=== PATIENT | male | born 1955 | race Caucasian/White ===

== ENCOUNTER → 2016-07-19 | Outpatient (CLI) | payer MEDICARE ==
[2016-07-19 12:13] VITALS: BP 153/89; PULSE 64; RESP 18
--- NOTE | 2016-07-19 12:46 | P.PN ---
Subjective This is follow-up visit for this patient with a history of severe and chronic low back pain secondary to lumbar degenerative disc disease lumbar facet arthropathy, we have done interventional pain management injection, radiofrequency ablation of the medial branch lumbar area, down the right side on February 2016 and then we did the left side on March 2016, and he is complaining of localized severe pain , continued in the low back area, and he started immediately after he had the radiofrequency ablation on the left side, and radiated to the left buttock, he denies any motor or sensory deficit he denies any fever or night sweats he denies any change in the bowel movement or urination, and is currently on pain medications 1- oxycodone 20 mg every 6 hours when necessary for pain 2-Motrin 800 mg 3 times a day Patient denies any side effects of the medication, denies excessive drowsiness or sleepiness, denies suicidal ideation, and reports that the current pain medication is NOT helping To control the pain and improve activity of daily living Physical Examinations : 1-Constitutiona : Cooperative , not in acute distress . 2-HEENT : nech ; supple , no Lymphadenopathy , no Thyromegaly , normal thyroid size . eyes : no ptosis , no icterus, no photophobia . ENT : normal of hearing , normal oropharynx , no Thrush . 3- Respiratory : Chest clear to auscultations Bilaterally , no wheezing , no Rhonchi . 4- Cardiovascular : regular rate and rhythem , S1 , S2 , no S3 , no S4. 5- Gastrointestinal : abdomen soft no tenderness , bowel sounds positive all four quadrents , no organomegally . 6- Genitourinary : Defferred . 7- neurologic : Cranial nerve II to XII intact , no focal neurological deffecit . 8-psychatric : alert , oriented X 3 , appropriate affect , intact judgment and insight . 9-Lymphatic : no Lymphadenopathy . 10- musculoskeltal : exams of the cervical spine = motor strength normal bilateral upper extremities facet loading test cervical area positive. exams of the Lumber spine = motor strength lower extremities ,thigh and legs .5/5 deep tendon reflexes : normal Knee Jerk , normal ankle Jerk . Severe tenderness over the left-sided iliolumbar ligament area Range of motion: Range of motion in flexion of the lumbar spine 60 degrees Range of motion range of motion of extension of the lumbar spine 30 Assessment and plan = - Chronic low back pain secondary to lumbar degenerative disc disease , lumbar spondylosis with facet arthropathy without myelopathy , Status post radiofrequency ablation of the medial branch lumbar area done more than 2 months ago, currently he has typical symptoms of Left iliolumbar ligament neuralgia, - chronic and current use of high-risk medication (Opioids). The patient was counseled about risk of opioid use, psychological risk associated with opioids and was orally counseled to not overuse , divert,or sell dictations to take medications as prescribed only , and to restore medication in safe location , and the patient counseled against driving while using narcotic medications, and also not to use alcohol or any illicit recreational drugs, the patient's verbalized understanding that the lack of compliance will result in failure to renew narcotic prescription and possible discharge from the clinic - diagnoses, prognosis, and treatment options including but not limited to physical therapy, surgical interventions, interventional therapies , and medication management including narcotics and adjuvant medication were discussed with the patient and all The questions answered -medication management =1-oxycodone 20 mg every 6 hours dispense 120 with one refill 2-Motrin 800 mg every 8 hours dispense 90 with 1 refill -procedure= urine drug screen today Scheduled patient to have left iliolumbar ligament steroid injection under fluoroscopy guidance Objective - Vital Signs Vital signs: Vital Signs Temp Pulse 64 07/19/16 12:09 Resp 18 07/19/16 12:09 BP 153/89 07/19/16 12:09 Pulse Ox 98 07/19/16 12:09 Intake & Output 07/18/16 07/19/16 07/19/16 18:59 06:59 18:59 Weight 106.594 kg
== END | disposition home or self-care (01) ==
LOC: PNWHC3 11:53
PROVIDERS: ATTEND Specialist
DX: M51.36 Other intervertebral disc degeneration, lumbar region (principal); M47.816 Spondylosis without myelopathy or radiculopathy, lumbar region; M46.96 Unspecified inflammatory spondylopathy, lumbar region; G58.8 Other specified mononeuropathies; Z79.891 Long term (current) use of opiate analgesic
CPT/HCPCS: 80307 ×2; G0480; G0463; 80364; 99211

== ENCOUNTER 2016-08-20 07:32 | Day surgery (SDC) | payer MEDICARE ==
[2016-08-20 07:58] VITALS: TEMP 97.7
[2016-08-20] MEDS ORDERED: LACTATED RINGERS 1,000 ML IV ONE (08:15)
[2016-08-20] MEDS ORDERED: TRIAMCINOLONE ACETONIDE 40 MG/ML 1 ML VIAL ONE (09:20)
[2016-08-20] MEDS ORDERED: BUPIVACAINE (PF) 0.75% 30 ML VIAL ONE (09:20)
[2016-08-20 10:01] VITALS: BP 126/80; PULSE 57; RESP 18
--- NOTE | 2016-08-20 10:06 | FL ---
Fluoroscopy HISTORY: Pain 5 seconds fluoroscopy time supplied to the referring clinician. 2 intraoperative C-arm images docume nt the procedure. See dictated report from anesthesia.
--- NOTE | 2016-08-20 12:03 | P.PCN ---
Date of Procedure: 08/20/16 Procedure(s) Performed: Preoperative diagnoses= 1-left iliolumbar ligament and neuralgia 2-lumbar spondylosis with lumbar facet arthropathy without myelopathy Postoperative diagnoses= same as preoperative diagnosis. Procedure= left iliolumbar ligament steroid injection under fluoroscopic guidance. Anesthesia= local infiltration with lidocaine 1% 2 ml Estimated blood loss=minimal. Procedure indication= the patient had a history of severe chronic low back pain , diagnosed with left iliolumbar ligament and neuralgia and lumbar sacral facet arthropathy unresponsive to conservative treatment. Patient had radiofrequency ablation of the medial branch lumbar area and he continued to have severe low back pain at the location of the left iliolumbar ligament for this reason he is a good candidate to have left iliolumbar ligament steroid injection Procedure description= the patient was seen and identified in the preoperative holding area, risks and benefits and alternative of the procedure and possible complications discussed with the patient, and he agreed with the preceding, patient signed the consent, an IV was started, and vital signs were monitored and were stable throughout the procedure, patient was placed in the prone position or table and the lumbosacral area was prepped and draped with a sterile fashion, vital signs were closely monitored during the procedure, the fluoroscopy camera was placed in the AP view then 25-gauge Quincke Needle advanced slowly and placed in the middle of the distance between the transverse process of L5 and the sacral ala on the left side, needle placement confirmed with AP and lateral view and after appropriate needle placement confirmed and after negative aspiration for heme and CSF and there was no paresthesia during the injection, 5 ml of Marcaine 0.75% and 40 mg of Kenalog injected after negative aspiration, the needle removed, Patient tolerated the procedure well without any complication, The patient returned to supine position after the back was cleaned and a Band- Aid applied, the patient transported to recovery room in stable condition and he was monitored for 30 minutes before he was discharged home and then patient was reexamined before going home and patient was discharged in stable condition and patient will follow up with the pain clinic in a few weeks
== END 2016-08-20 10:08 | disposition home or self-care (01) ==
LOC: ORPAIN 07:32
PROVIDERS: ATTEND Specialist
DX: M46.96 Unspecified inflammatory spondylopathy, lumbar region (principal)
CPT/HCPCS: 20550; J3301

== ENCOUNTER → 2016-09-17 | Outpatient (CLI) | payer MEDICARE ==
[2016-09-17 13:04] VITALS: BP 158/81; PULSE 67; RESP 16; TEMP 97.8
--- NOTE | 2016-09-17 13:28 | P.PN ---
Subjective This is follow-up visit for this patient with a history of severe and chronic low back pain secondary to lumbar degenerative disc disease lumbar facet arthropathy, we have done interventional pain management injection, radiofrequency ablation of the medial branch lumbar area He continued to have severe low back pain mainly on the left side low back area after the radiofrequency, he denies any motor or sensory deficit We did a lumbar ligament stability injection, he reported that he had minimal benefit from it, and he continued to have severe low back pain and Occasional numbness and tingling sensation . He is currently using, oxycodone 20 mg every 6 hours Patient denies any side effects of the medication, denies excessive drowsiness or sleepiness, denies suicidal ideation, and reports that the current pain medication is NOT helping To control the pain and improve activity of daily living Physical Examinations : 1-Constitutiona : Cooperative , not in acute distress . 2-HEENT : nech ; supple , no Lymphadenopathy , no Thyromegaly , normal thyroid size . eyes : no ptosis , no icterus, no photophobia . ENT : normal of hearing , normal oropharynx , no Thrush . 3- Respiratory : Chest clear to auscultations Bilaterally , no wheezing , no Rhonchi . 4- Cardiovascular : regular rate and rhythem , S1 , S2 , no S3 , no S4. 5- Gastrointestinal : abdomen soft no tenderness , bowel sounds positive all four quadrents , no organomegally . 6- Genitourinary : Defferred . 7- neurologic : Cranial nerve II to XII intact , no focal neurological deffecit . 8-psychatric : alert , oriented X 3 , appropriate affect , intact judgment and insight . 9-Lymphatic : no Lymphadenopathy . 10- musculoskeltal : exams of the cervical spine = motor strength normal bilateral upper extremities exams of the Lumber spine = motor strength lower extremities ,thigh and legs .5/5 deep tendon reflexes : normal Knee Jerk , normal ankle Jerk . lumber facet Loading Test positive strait leg raising test positive at 30 degree , RT ,LT , Fabere test positive RT and positive LT . Range of motion: Range of motion in flexion of the lumbar spine 30 degrees Range of motion range of motion of extension of the lumbar spine 10 Sever tenderness over the Sacroiliac joint on the Left side , severe tenderness on the iliolumbar ligament on the left Assessment and plan = - Chronic low back pain secondary to lumbar degenerative disc disease , lumbar spondylosis with facet arthropathy without myelopathy , Iliolumbar ligament neuralgia Patient had no benefit after the iliolumbar ligament steroid injection, and he continued to have pain on the left side after the radiofrequency Ablation of the medial branch on the left side - chronic and current use of high-risk medication (Opioids). The patient was counseled about risk of opioid use, psychological risk associated with opioids and was orally counseled to not overuse , divert,or sell dictations to take medications as prescribed only , and to restore medication in safe location , and the patient counseled against driving while using narcotic medications, and also not to use alcohol or any illicit recreational drugs, the patient's verbalized understanding that the lack of compliance will result in failure to renew narcotic prescription and possible discharge from the clinic - diagnoses, prognosis, and treatment options including but not limited to physical therapy, surgical interventions, interventional therapies , and medication management including narcotics and adjuvant medication were discussed with the patient and all The questions answered -medication management = refill oxycodone 20 mg every 6 hours dispensed 120 -I will order MRI of the lumbar spine without contrast to evaluate the progression of lumbar spine pathology, and he will follow up in 1 month Objective - Vital Signs Vital signs: Vital Signs Temp 97.8 F 09/17/16 12:55 Pulse 67 09/17/16 12:55 Resp 16 09/17/16 12:55 BP 158/81 09/17/16 12:55 Pulse Ox Intake & Output 09/16/16 09/17/16 09/17/16 18:59 06:59 18:59 Weight 104.326 kg
== END | disposition home or self-care (01) ==
LOC: PNWHC3 12:38
PROVIDERS: ATTEND Specialist
DX: M51.36 Other intervertebral disc degeneration, lumbar region (principal); M47.816 Spondylosis without myelopathy or radiculopathy, lumbar region; M46.86 Other specified inflammatory spondylopathies, lumbar region; M79.2 Neuralgia and neuritis, unspecified
CPT/HCPCS: 99211

== ENCOUNTER → 2016-10-15 | Outpatient (CLI) | payer MEDICARE ==
[2016-10-15 12:01] VITALS: BP 151/89; PULSE 66; RESP 16; TEMP 97.3
--- NOTE | 2016-10-15 13:25 | P.CONS ---
History of Present Illness - Reason for Consult Consult date: 10/15/16 - History of Present Illness This is from prior visit for this 60 years old male with a chronic history of severe low back pain secondary to lumbar degenerative disc disease and lumbar spondylosis with facet arthropathy, done interventional pain management procedure, status post radiofrequency ablation of the medial branch lumbar area , he continued to have localized pain at the area of the iliolumbar ligament,( left ) , we did the left side iliolumbar ligament steroid injection and had no benefit from it, he denies any motor or sensory deficit, and he had new MRI of the lumbar spine done recently and is here to discuss the results of the MRI, Past Medical History Past Medical History: GERD/Reflux, Hearing Disorder / Deafness, Myocardial Infarction ([place]), Musculoskeletal Disorder Additional Past Medical History / Comment(s): BACK PAIN THAT RADIATES TO BOTH LEGS. CHIGNIK LAGOON RT EAR. Last Myocardial Infarction Date:: 1998 History of Any Multi-Drug Resistant Organisms: None Reported Past Surgical History: Coronary Bypass/CABG, Heart Catheterization With Stent, Orthopedic Surgery Additional Past Surgical History / Comment(s): COLONOSCOPY. RT KNEE SURG. LT ROTATOR CUFF SURG. Pain Procedures Past Anesthesia/Blood Transfusion Reactions: No Reported Reaction Date of Last Stent Placement:: 1998 Past Psychological History: No Psychological Hx Reported Smoking Status: Current every day smoker Past Alcohol Use History: None Reported Additional Past Alcohol Use History / Comment(s): CURRENTLY SMOKES 1/2 PPD. SMOKING SINCE 20 YEARS OLD. USED TO SMOKE 1- 1 1/2 PPD. Past Drug Use History: None Reported - Past Family History Mother Family Medical History: No Reported History Medications and Allergies Home Medications Medication Instructions Recorded Confirmed Type Omeprazole [PriLOSEC] 20 mg PO DAILY PRN 12/19/15 10/15/16 History Multivitamin [Men's Multi-Vitamin] 1 tab PO DAILY 07/19/16 10/15/16 History Allergies Allergy/AdvReac Type Severity Reaction Status Date / Time No Known Allergies Allergy Verified 10/15/16 11:53 Physical Exam Vitals: Vital Signs Temp Pulse Resp BP Pulse Ox 10/15/16 11:56 97.3 F L 66 16 151/89 97 Intake and Output 10/14/16 10/15/16 10/15/16 22:59 06:59 14:59 Other: Weight 108.862 kg Patient Weight 10/16/16 06:59 Weight 108.862 kg Physical Examinations : 1-Constitutiona : Cooperative , not in acute distress . 2-HEENT : nech ; supple , no Lymphadenopathy , no Thyromegaly , normal thyroid size . eyes : no ptosis , no icterus, no photophobia . ENT : normal of hearing , normal oropharynx , no Thrush . 3- Respiratory : Chest clear to auscultations Bilaterally , no wheezing , no Rhonchi . 4- Cardiovascular : regular rate and rhythem , S1 , S2 , no S3 , no S4. 5- Gastrointestinal : abdomen soft no tenderness , bowel sounds positive all four quadrents , no organomegally . 6- Genitourinary : Defferred . 7- neurologic : Cranial nerve II to XII intact , no focal neurological deffecit . 8-psychatric : alert , oriented X 3 , appropriate affect , intact judgment and insight . 9-Lymphatic : no Lymphadenopathy . 10- musculoskeltal : exams of the Lumber spine = normal moter stegnth lower extremities ,thigh and legs .5/5 deep tendon reflexes : normal Knee Jerk , normal ankle Jerk . positive lumber facet Loading Test strait leg raising test positive at 30 degree , RT ,LT , Fabere test positive RT and positive LT . Sever tenderness over the Sacroiliac joint on the Left side , severe tenderness over the left iliolumbar ligament and the left side Results Comments: MRI of the lumbar spine done at [facility]= lumbar DDD and lumbar spondylosis Assessment and Plan Plan: Assessment and plan = - Chronic low back pain secondary to lumbar degenerative disc disease , lumbar spondylosis with facet arthropathy without myelopathy , The patient was counseled about risk of opioid use, psychological risk associated with opioids discussed with the patient, body mass index and exercise. Patient signed the narcotic agreement , and was orally counseled not to overuse , abuse , divert, or sell medications ,and take them as prescribed only , and the patient was counseled against driving and while you are using the narcotic medication also not to use alcohol or any illicit drugs and the patient verbalized understanding that lack of compliance and could result in failure to renew narcotics prescriptions and possible discharge from the clinic - diagnoses, prognosis, and treatment options including but not limited to physical therapy, surgical interventions, interventional therapies and medication management including narcotics and adjuvant medication were discussed with the patient and all questions answered to the patient's satisfaction. -medication refile = oxycodone 20 mg every 6 hours dispensed 120 with one refill , Motrin 800 mg 3 times a day when necessary He will follow up in 2 months for medication refill -procedure= none at this point Time with Patient: Less than 30
== END | disposition home or self-care (01) ==
LOC: PNWHC3 11:33
PROVIDERS: ATTEND Specialist
DX: M51.36 Other intervertebral disc degeneration, lumbar region (principal); M47.816 Spondylosis without myelopathy or radiculopathy, lumbar region; M46.86 Other specified inflammatory spondylopathies, lumbar region; K21.9 Gastro-esophageal reflux disease without esophagitis; F17.200 Nicotine dependence, unspecified, uncomplicated; I25.2 Old myocardial infarction
CPT/HCPCS: 99211

== ENCOUNTER → 2016-12-05 | Outpatient (CLI) | payer MEDICARE ==
[2016-12-05 12:55] VITALS: BP 132/81; PULSE 65; RESP 18; TEMP 97.3
--- NOTE | 2016-12-05 13:32 | P.PN ---
Progress Note - Text Patient returns for followup for chronic back pain with radiation to bilateral lower extremities, occasionally below knee. Patient underwent bilateral RFA in which helped him for about one month. Patient continues on oxycodone, ibuprofen medications for pain with good relief. Patient denies adverse drug effects from medications. Today, pt denies new-onset weakness, bowel/bladder incontinence, or any other signs or symptoms of cauda equina syndrome. There are no signs of acute intoxication, and no indications of medication diversion or overuse. In addition to above, 13-point review of systems is also negative for chest pain , shortness of breath, changes in vision, changes in hearing, new onset weakness , abdominal pain, diarrhea, extreme fatigue, malaise, fever, skin changes, homicidal or suicidal ideation, or bowel or bladder incontinence. Vital Signs: Reviewed in EMR Gen: WDWN, AAOx3, NAD HEENT: NCAT, EOMI, hearing grossly normal Pulm: resp unlabored Abd: soft, NT, ND Neck: supple, trachea midline ROM in flexion lumbar spine: reduced ROM in extension lumbar spine: reduced Lumbar paravertebral tenderness: + bilateral Facet loading: ++ bilateral, L > R SI joint tenderness: negative Mars's test: + bilateral Straight leg raise: + L side > R side Neuro: CN II-XII grossly intact, muscle strength lower extremities PRESERVED Imaging: Reviewed in EMR Assessment: 1. lumbar spinal stenosis 2. lumbar spondylosis without myelopathy 3. chronic pain syndrome Plan: 1. Explanation: Opioid and psychological risk scores were reviewed. Diagnoses , prognoses, and multiple treatment options including but not limited to physical therapy, interventional therapies, adjuvant medical therapies, narcotic medication therapies, and surgery were discussed with the patient and all questions were answered to the patient's satisfaction. 2. Opioid agreement: Patient has previously signed narcotic agreement, and was orally counseled to not overuse, abuse, divert, or cell medications, and to take them as prescribed by only 1 healthcare provider. The patient was also counseled to take medications as prescribed by only 1 healthcare provider and to store opioid medications in the safe and preferably locked location. Patient was also counseled not to drive while using narcotic medications and also to not use alcohol or any illicit or recreational drugs. The patient verbalized understanding that lack of compliance with any of the above and likely result in failure to renew narcotic prescriptions, possible discharge from the clinic, and possible legal ramifications thereafter if indicated. 3. Counseling: The patient was counseled extensively on SMOKING CESSATION, BODY MASS INDEX, EXERCISE. Specifically, the patient was instructed regarding the importance of smoking cessation, obesity, and exercise in the context of both chronic pain and overall health. 4. Procedures: bilateral SIJ injection 5. Consultations: None 6. Investigations: UDS OK 7. Medications: oxycodone 20 mg #105 for next month, then will likely maintain patient at oxycodone 20 mg #90 after that; refilled Motrin. Consider adding topamax or other adjuvants in the future. 8. Dispo: f/u for procedure as scheduled PQRS measures: 1-Patient's medications are documented in the chart. 2-Tobacco use is positive, counseling given 3-Patient has not had a pneumococcal vaccine. 4-Advanced care planning discussed, patient not eligible. 5-Opioid contract signed with the patient. 6-Pain positive, follow-up visit or procedure scheduled 7-Patient's blood pressure measured and documented, within normal limits. 8-Patient's weight was measured, and body mass index ABOVE the normal limits, and counseling was done. Patient instructed to follow up with PCP. 9-Patient WAS NOT identified as an unhealthy alcohol user.
== END ==
LOC: PNWHC3 12:32
PROVIDERS: ATTEND Anesthesiology
DX: M48.06 Spinal stenosis, lumbar region (principal); M47.816 Spondylosis without myelopathy or radiculopathy, lumbar region; G89.4 Chronic pain syndrome; Z79.891 Long term (current) use of opiate analgesic
CPT/HCPCS: 99211

== ENCOUNTER 2017-01-17 09:54 | Day surgery (SDC) | payer MEDICARE ==
[2017-01-14 09:11] VITALS: BMI 30.3
[2017-01-17] MEDS ORDERED: LACTATED RINGERS 1,000 ML IV SCH (10:15)
[2017-01-17] MEDS ORDERED: LIDOCAINE 1% 20 ML VIAL (10MG/ML) FOR IV START INTRADERMA ONE (10:19)
[2017-01-17 10:27] VITALS: RESP 16; TEMP 97.7
--- NOTE | 2017-01-17 11:34 | FL ---
Fluoroscopy HISTORY: Pain 6 seconds fluoroscopy time supplied to the referring clinician. 4 intraoperative C-arm images docume nt the procedure. See dictated report from anesthesia.
[2017-01-17 11:47] VITALS: BP 138/83; PULSE 57
--- NOTE | 2017-01-17 12:22 | P.PCN ---
Date of Procedure: 01/17/17 Preoperative Diagnosis: Postoperative Diagnosis: Procedure(s) Performed: Implants: Surgeon: Boo Hooker Pathology: none sent Condition: stable Disposition: PACU Indications for Procedure: Operative Findings: Description of Procedure: PREOPERATIVE DIAGNOSIS: 1-Bilateral sacroiliitis. POSTOPERATIVE DIAGNOSIS:. 1-Bilateral sacroiliitis. PROCEDURES: Bilateral Sacroiliac joint steroid injection with fluoroscopic guidance ANESTHESIA: Local with 1% lidocaine EBL: Minimal. PROCEDURE INDICATIONS: This patient with a history of low back pain secondary to sacroiliitis and lumbar DDD unresponsive to conservative management. No use of blood thinners. PROCEDURE DESCRIPTION: The patient was seen and identified in the preoperative area. Risks, benefits, complications, and alternatives were discussed with the patient (including but not limited to incomplete pain relief, bleeding, infection, nerve damage, and allergies to medications), the patient agreed to proceed with the procedure and signed the consent after all questions were answered. Patient was taken to the OR and time out was completed to verify proper patient , position, laterality of pain, and allergies. Pt was placed in the prone position and a pillow was placed under the abdomen to reduce lumbar lordosis. The lumbosacral area was prepped and draped in the usual sterile fashion. Critical pause was taken. Vital signs were closely monitored during the procedure. The fluoroscopic camera was placed in contralateral oblique view and right sacroiliiac joint lower pole was identified. After local infiltration with 1% lidocaine 2 ml, Subsequently, a 22-gauge 3.5 inch spinal needle was introduced into the posteroinferior aspect of the right sacroiliac joint under direct fluoroscopic visualization. Subsequently, 3 ml of a solution of a total of 6 ml solution containing total 5 mL of 0.5% preservative-free bupivacaine mixed with 40 mg of Kenalog was injected after negative aspiration for CSF, blood, and air and negative for paresthesia. The entire procedure was repeated on the left side as above. Needle was withdrawn intact. Skin was cleansed, and bandages were applied. COMPLICATIONS: None. COMMENTS: DISPOSITION / PLANS: The patient was placed in a supine position and transferred to the recovery area in a stable condition for observation and was discharged from the recovery room after meeting discharge criteria. Home discharge instructions given to the patient by the staff. The patient was reexamined prior to discharge. The patient will schedule a follow-up in clinic in February.
== END 2017-01-17 11:52 | disposition home or self-care (01) ==
LOC: ORPAIN 09:54
PROVIDERS: ATTEND Anesthesiology
DX: M46.1 Sacroiliitis, not elsewhere classified (principal); G89.29 Other chronic pain; M51.36 Other intervertebral disc degeneration, lumbar region; K21.9 Gastro-esophageal reflux disease without esophagitis; Z95.5 Presence of coronary angioplasty implant and graft; Z95.1 Presence of aortocoronary bypass graft
CPT/HCPCS: 99152

== ENCOUNTER → 2017-02-27 | Outpatient (CLI) | payer MEDICARE ==
[2017-02-27 14:14] VITALS: BP 155/90; PULSE 67; RESP 20
--- NOTE | 2017-02-27 14:23 | P.PN ---
Progress Note - Text Patient returns for followup for chronic back pain with radiation to bilateral lower extremities, occasionally below knee. Patient underwent bilateral RFA in July/August which helped him for about one month and bilateral SIJ injection which helped for 1-2 days. Patient continues on oxycodone, ibuprofen medications for pain with some relief, although this was decreased from QID to TID at last visit. Patient denies adverse drug effects from medications. Today , pt denies new-onset weakness, bowel/bladder incontinence, or any other signs or symptoms of cauda equina syndrome. There are no signs of acute intoxication, and no indications of medication diversion or overuse. In addition to above, 13-point review of systems is also negative for chest pain , shortness of breath, changes in vision, changes in hearing, new onset weakness , abdominal pain, diarrhea, extreme fatigue, malaise, fever, skin changes, homicidal or suicidal ideation, or bowel or bladder incontinence. Vital Signs: Reviewed in EMR Gen: WDWN, AAOx3, NAD HEENT: NCAT, EOMI, hearing grossly normal Pulm: resp unlabored Abd: soft, NT, ND Neck: supple, trachea midline ROM in flexion lumbar spine: reduced ROM in extension lumbar spine: reduced Lumbar paravertebral tenderness: + bilateral Facet loading: ++ bilateral, L > R SI joint tenderness: negative Mars's test: + bilateral Straight leg raise: + L side > R side Neuro: CN II-XII grossly intact, muscle strength lower extremities PRESERVED Imaging: Reviewed in EMR Assessment: 1. lumbar spinal stenosis 2. lumbar spondylosis without myelopathy 3. chronic pain syndrome Plan: 1. Explanation: Opioid and psychological risk scores were reviewed. Diagnoses , prognoses, and multiple treatment options including but not limited to physical therapy, interventional therapies, adjuvant medical therapies, narcotic medication therapies, and surgery were discussed with the patient and all questions were answered to the patient's satisfaction. 2. Opioid agreement: Patient has previously signed narcotic agreement, and was orally counseled to not overuse, abuse, divert, or cell medications, and to take them as prescribed by only 1 healthcare provider. The patient was also counseled to take medications as prescribed by only 1 healthcare provider and to store opioid medications in the safe and preferably locked location. Patient was also counseled not to drive while using narcotic medications and also to not use alcohol or any illicit or recreational drugs. The patient verbalized understanding that lack of compliance with any of the above and likely result in failure to renew narcotic prescriptions, possible discharge from the clinic, and possible legal ramifications thereafter if indicated. 3. Counseling: The patient was counseled extensively on SMOKING CESSATION, BODY MASS INDEX, EXERCISE. Specifically, the patient was instructed regarding the importance of smoking cessation, obesity, and exercise in the context of both chronic pain and overall health. 4. Procedures: bilateral SIJ injection #2 5. Consultations: None 6. Investigations: UDS OK 7. Medications: oxycodone 20 mg #90 with one refill; refilled Motrin 8. Dispo: f/u for procedure as scheduled. If patient gets limited relief from SIJ injection and is not a candidate for SI RFA, consider repeating lumbar RFA. Patient states that he is slowly adjusting to decreased dose of oxycodone and is doing well. PQRS measures: 1-Patient's medications are documented in the chart. 2-Tobacco use is positive, counseling given 3-Patient has not had a pneumococcal vaccine. 4-Advanced care planning discussed, patient not eligible. 5-Opioid contract signed with the patient. 6-Pain positive, follow-up visit or procedure scheduled 7-Patient's blood pressure measured and documented, within normal limits. 8-Patient's weight was measured, and body mass index ABOVE the normal limits, and counseling was done. Patient instructed to follow up with PCP. 9-Patient WAS NOT identified as an unhealthy alcohol user.
== END ==
LOC: PNWHC3 13:58
PROVIDERS: ATTEND Anesthesiology
DX: M48.06 Spinal stenosis, lumbar region (principal); M47.816 Spondylosis without myelopathy or radiculopathy, lumbar region; Z79.891 Long term (current) use of opiate analgesic; Z79.899 Other long term (current) drug therapy
CPT/HCPCS: 99211

== ENCOUNTER → 2017-04-22 | Outpatient (CLI) | payer MEDICARE ==
[2017-04-22 12:21] VITALS: BP 161/86; PULSE 68; RESP 16; TEMP 97.8
--- NOTE | 2017-04-22 12:42 | P.PN ---
Progress Note - Text Progress Note Date: 04/22/17 This is a 61-year-old male with history of chronic lower back pain status post lumbar epidural steroid injection and lumbar medial branch RFA. The patient had bilateral sacroiliac joint steroid injection lately which gave him 2 days of pain relief and during these 2 days he did not have to uses oxycodone. He denies any bowel or bladder dysfunction or any weakness in the lower extremities at this point. The pain radiates down to both knees and its intensity fluctuates from time to time and from [id number]. The patient smokes tobacco and he was encouraged to quit. For now I will give the patient prescription for 2 months of oxycodone 20 mg up to 3 times a day. He might benefit from getting sacroiliac joint RFA in the future when his health insurance approves it. PQRS measures: 1-Patient's medications are documented in the chart. 2- + Tobacco use , counseling given 3-Patient has not had a pneumococcal vaccine. 4-Advanced care planning discussed, patient unable to give 5-Opioid contract signed with the patient. 6-Pain positive, follow-up visit or procedure scheduled 7-Patient's blood pressure measured and documented higher than normal limits. Patient encouraged to follow up with his family physician. 8-Patient's weight was measured, and body mass index ABOVE the normal limits, and counseling was done. Patient instructed to follow up with PCP. 9-Patient WAS NOT identified as an unhealthy alcohol user.
== END | disposition home or self-care (01) ==
LOC: PNWHC3 11:57
PROVIDERS: ATTEND Anesthesiology
DX: M54.5 Low back pain (principal)
CPT/HCPCS: 99211

== ENCOUNTER → 2017-06-17 | Outpatient (CLI) | payer MEDICARE ==
[2017-06-17 12:02] VITALS: BP 160/88; PULSE 69; RESP 18
--- NOTE | 2017-06-17 12:19 | P.PN ---
Progress Note - Text Progress Note Date: 06/17/17 Patient returns for followup for chronic back pain with radiation to bilateral lower extremities, occasionally below knee. Patient underwent bilateral RFA in which helped him for about one month and bilateral SIJ injection which helped for 1-2 days apiece. Patient continues on oxycodone, ibuprofen medications for pain with some relief. Patient denies adverse drug effects from medications. Today, pt denies new-onset weakness, bowel/bladder incontinence, or any other signs or symptoms of cauda equina syndrome. There are no signs of acute intoxication, and no indications of medication diversion or overuse. In addition to above, 13-point review of systems is also negative for chest pain , shortness of breath, changes in vision, changes in hearing, new onset weakness , abdominal pain, diarrhea, extreme fatigue, malaise, fever, skin changes, homicidal or suicidal ideation, or bowel or bladder incontinence. Vital Signs: Reviewed in EMR Gen: WDWN, AAOx3, NAD HEENT: NCAT, EOMI, hearing grossly normal Pulm: resp unlabored Abd: soft, NT, ND Neck: supple, trachea midline ROM in flexion lumbar spine: reduced ROM in extension lumbar spine: reduced Lumbar paravertebral tenderness: + bilateral Facet loading: ++ bilateral, L > R SI joint tenderness: negative Mars's test: + bilateral Straight leg raise: + L side > R side Neuro: CN II-XII grossly intact, muscle strength lower extremities PRESERVED Imaging: Reviewed in EMR Assessment: 1. lumbar spinal stenosis 2. lumbar spondylosis without myelopathy 3. chronic pain syndrome Plan: 1. Explanation: Opioid and psychological risk scores were reviewed. Diagnoses , prognoses, and multiple treatment options including but not limited to physical therapy, interventional therapies, adjuvant medical therapies, narcotic medication therapies, and surgery were discussed with the patient and all questions were answered to the patient's satisfaction. 2. Opioid agreement: Patient has previously signed narcotic agreement, and was orally counseled to not overuse, abuse, divert, or cell medications, and to take them as prescribed by only 1 healthcare provider. The patient was also counseled to take medications as prescribed by only 1 healthcare provider and to store opioid medications in the safe and preferably locked location. Patient was also counseled not to drive while using narcotic medications and also to not use alcohol or any illicit or recreational drugs. The patient verbalized understanding that lack of compliance with any of the above and likely result in failure to renew narcotic prescriptions, possible discharge from the clinic, and possible legal ramifications thereafter if indicated. 3. Counseling: The patient was counseled extensively on SMOKING CESSATION, BODY MASS INDEX, EXERCISE. Specifically, the patient was instructed regarding the importance of smoking cessation, obesity, and exercise in the context of both chronic pain and overall health. 4. Procedures: R SI RFA 5. Consultations: None 6. Investigations: UDS today 7. Medications: oxycodone 20 mg #90 with one refill; refilled ibuprofen 8. Dispo: f/u for procedure as scheduled PQRS measures: 1-Patient's medications are documented in the chart. 2-Tobacco use is positive, counseling given 3-Patient has not had a pneumococcal vaccine. 4-Advanced care planning discussed, patient not eligible. 5-Opioid contract signed with the patient. 6-Pain positive, follow-up visit or procedure scheduled 7-Patient's blood pressure measured and documented, within normal limits. 8-Patient's weight was measured, and body mass index ABOVE the normal limits, and counseling was done. Patient instructed to follow up with PCP. 9-Patient WAS NOT identified as an unhealthy alcohol user.
== END | disposition home or self-care (01) ==
LOC: PNWHC3 11:52
PROVIDERS: ATTEND Anesthesiology
DX: G89.4 Chronic pain syndrome (principal); M54.9 Dorsalgia, unspecified; M48.061 Spinal stenosis, lumbar region without neurogenic claudication; M47.816 Spondylosis without myelopathy or radiculopathy, lumbar region; Z79.891 Long term (current) use of opiate analgesic; Z79.1 Long term (current) use of non-steroidal anti-inflammatories (NSAID); Z72.0 Tobacco use; Z71.6 Tobacco abuse counseling
CPT/HCPCS: 80307; G0480 ×2; G0463; 80356; 80364; 99211

== ENCOUNTER → 2017-07-16 | Day surgery (SDC) | payer MEDICARE ==
[2017-07-10 12:04] VITALS: BMI 30.9
[~2017-07-16] MED LIST: LACTATED RINGERS 1,000 ML IV SCH
[2017-07-16 10:01] VITALS: RESP 16; TEMP 98
--- NOTE | 2017-07-16 11:20 | P.PCN ---
Date of Procedure: 07/16/17 Surgeon: Kit Ahn Pathology: none sent Condition: stable Disposition: PACU Description of Procedure: PREOPERATIVE DIAGNOSIS: Lumbar spondylosis without myelopathy, morbid obesity POSTOPERATIVE DIAGNOSIS: Lumbar spondylosis without myelopathy,morbid obesity PROCEDURES : Radiofrequency thermocoagulation, left L2-4, L3-L4, L4-L5, and L5- S1 medial branch, with fluoroscopic guidance ANESTHESIA: Local only with lidocaine 1% EBL: Minimal PROCEDURE INDICATION: The patient with low back pain secondary to lumbar facet arthropathy who had more than 50% relief of her pain with previous diagnostic lumbar medial branch block with bupivacaine. PROCEDURE DESCRIPTION / TECHNIQUE: The patient was seen and identified in the preoperative area. Risks, benefits, complications, including but not limited to risk of infection ,bleeding , allergic reactions to the medications and no complete pain relief , and alternatives were discussed with the patient, the patient agreed to proceed with the procedure and signed the consent. IV was started. Vital signs remained stable throughout the procedure. Patient was taken to the OR and time out was completed. The patient was placed in the prone position on the procedure table. The lumber area was prepped and draped in the usual sterile fashion. . Vital signs were closely monitored during the procedure .IV sedation was used during the procedure to decrease patients anxiety. The target points were identified as follows: For the L5-S1 level which corresponds to the dorsal ramus of L5 the target point was at the superior medial aspect of the sacral ala on the left side of the spine on the AP view of fluoroscopy and for the L2, L3, and L4 medial branches the target points were at the connection between the transverse process and the superior articular process of L3, L4, and L5 vertebra respectively on the left oblique view of fluoroscopy. skin was marked, and localized with 1% lidocaineat these points. Subsequently, an 18 -ug radiofrequency needles with a 10-mm curved active tips were advanced guided by fluoroscopy to each of the target points mentioned above in a superior medial direction to get the active tips as parallel as possible to the medial branches tracks. AP, oblique, and lateral views of fluoroscopy were used to verify needle tips position. Each level then underwent motor testing at 2.5 Hz and 0 to 3 volt with local stimulation, but no radicular symptoms down the legs. Thereafter radiofrequency thermocoagulation at 80 degrees celsius for 90 seconds after injecting 1 ml of PF Marcaine 0.5%(3 mls) with 40 mg of Kenalog. At the end of the procedure, the skin was cleansed and bandages were applied. COMPLICATIONS: No acute complications. DISPOSITION / PLANS: The patient was placed in a supine position and transferred to the recovery area in a stable condition for observation and was discharged from the recovery room after meeting discharge criteria. Home discharge instructions given to the patient by the staff. The patient was reexamined prior to discharge. The patient will schedule a follow up in the clinic in 2-4 weeks.
[2017-07-16 11:33] VITALS: BP 146/83; PULSE 49
--- NOTE | 2017-07-16 12:45 | FL ---
EXAMINATION TYPE: FL guided pain mgmt statistic DATE OF EXAM: 07/16/2017 HISTORY: Pain RFA LUMBAR, 33 SEC FL TIME, 3 IMAGES SCANNED
== END ==
LOC: ORPAIN 09:03
PROVIDERS: ATTEND Anesthesiology
DX: G89.4 Chronic pain syndrome (principal); M47.816 Spondylosis without myelopathy or radiculopathy, lumbar region; M48.061 Spinal stenosis, lumbar region without neurogenic claudication; E66.01 Morbid (severe) obesity due to excess calories; Z68.31 Body mass index [BMI] 31.0-31.9, adult; Z79.1 Long term (current) use of non-steroidal anti-inflammatories (NSAID); Z79.891 Long term (current) use of opiate analgesic; F17.210 Nicotine dependence, cigarettes, uncomplicated
CPT/HCPCS: 64635; 64636; J3301

== ENCOUNTER → 2017-08-29 | Outpatient (CLI) | payer MEDICARE ==
[2017-08-29 14:00] VITALS: BP 150/66; PULSE 91; RESP 18
--- NOTE | 2017-08-29 14:30 | P.PN ---
Subjective Progress Note Date: 08/29/17 This is 61 years old male with a chronic history of severe low back pain mainly to the left side, diagnosed with lumbar spondylosis with lumbar facet arthropathy, and also patient had L5-S1 disc desiccation, with done radiofrequency ablation of the medial branch lumbar area on the left side, patient reported that he had short-term benefit from it and only partial benefit , he gets pain relief for a few days only, currently the pain is constant with radiation to the left lower extremity associated with numbness and tingling sensation, he is currently on oxycodone 20 mg every 8 hours , and Motrin 800 mg 3 times a day when necessary he denies any side effect of the medication he denies any excessive drowsiness or sleepiness he denies any fever or night sweats and there is no change in the bowel movement or urination, the pain is constant and increases with any activity, the intensity of the pain 7-8 increased to 10 over 10 Objective - Vital Signs Vital signs: Vital Signs Temp Pulse 91 08/29/17 13:51 Resp 18 08/29/17 13:51 BP 150/66 08/29/17 13:51 Pulse Ox 97 08/29/17 13:51 Intake & Output 08/28/17 08/29/17 08/29/17 18:59 06:59 18:59 Weight 108.862 kg - Exam Physical Examinations : 1-Constitutiona : Cooperative , not in acute distress . 2-HEENT : nech ; supple , no Lymphadenopathy , normal thyroid size . eyes : no ptosis , no icterus, no photophobia . ENT : normal of hearing , normal oropharynx , no Thrush . 3- Respiratory : Chest clear to auscultations Bilaterally , no wheezing , no Rhonchi . 4- Cardiovascular : regular rate and rhythem , S1 , S2 , no S3 , no S4. 5- Gastrointestinal : abdomen soft no tenderness , bowel sounds positive all four quadrents , no organomegally . 6- Genitourinary : Defferred . 7- neurologic : Cranial nerve II to XII intact , no focal neurological deffecit . 8-psychatric : alert , oriented X 3 , appropriate affect , intact judgment and insight . 9-Lymphatic : no Lymphadenopathy . 10- musculoskeltal : , Lumber spine = normal moter stegnth lower extremities ,thigh and legs .5/5 deep tendon reflexes : normal Knee Jerk , normal ankle Jerk . lumber facet Loading Test positive on the left side strait leg raising test negative on the Right , positve at 30 degree Left Fabere test positive Right and negative on the Left Assessment and Plan Plan: MRI of the lumbar spine done at [facility] 10/09/2016 that showed L5-S1 disc desiccation and L4 5 there is facet joint arthropathy Assessment and plan= lumbar radiculopathy Lumbar spondylosis with lumbar facet arthropathy without myelopathy, patient continued to have severe low back pain after the radiofrequency ablation of the medial branch lumbar area. Patient could benefit from lumbar epidural steroid injections under fluoroscopy guidance(left paramedian approach) The prescription refill for oxycodone 20 mg every 8 hours dispense 90 with 1 refill was given Time with Patient: Less than 30
== END | disposition home or self-care (01) ==
LOC: PNWHC3 13:39
PROVIDERS: ATTEND Specialist
DX: M47.26 Other spondylosis with radiculopathy, lumbar region (principal); M46.86 Other specified inflammatory spondylopathies, lumbar region; Z79.891 Long term (current) use of opiate analgesic; Z79.1 Long term (current) use of non-steroidal anti-inflammatories (NSAID)
CPT/HCPCS: 99211

== ENCOUNTER 2017-10-03 06:08 | Day surgery (SDC) | payer MEDICARE ==
[2017-10-03 07:11] VITALS: RESP 16; TEMP 97.8
[2017-10-03] MEDS ORDERED: LACTATED RINGERS 1,000 ML IV SCH (07:30)
--- NOTE | 2017-10-03 07:56 | P.PCN ---
Date of Procedure: 10/03/17 Surgeon: Kit Ahn Description of Procedure: PREOPERATIVE DIAGNOSIS: 1-Lumbar radiculopathy 2- Lumber Degenerative Disc Diseases. POSTOPERATIVE DIAGNOSIS: 1-Lumbar radiculopathy. 2-Lumber Degenerative Disc Diseases PROCEDURE 1. Lumbar epidural steroid injection under fluoroscopic guidance at the L5-S1 level. 2. Lumbar epidurogram. ANESTHESIA: Local with 1% lidocaine EBL: none PROCEDURE INDICATION: The patient with low back pain and radiculitis symptoms unresponsive to conservative treatment. Fluoroscopy was used to optimize visualization of the needle placement and to maximize safety. PROCEDURE DESCRIPTION / TECHNIQUE: The patient was seen and identified in the preoperative area. Risks, benefits , complications including but not limited to infections ,bleeding ,allergic reaction to the medications ,nerve damage and not complete pain relief , and alternatives were discussed with the patient. The patient agreed to proceed with the procedure and signed the consent. IV was started, and vital signs were stable. The patient states that his pain changes sides from time to time and today his pain is more on the right side than the left side and that's why this procedure will be done in the right paramedian approach. Patient was taken to the OR and time out was completed. The patient was placed in the prone position on procedure table and a pillow was placed under the abdomen to reduce lumbar lordosis. The lumbosacral area was prepped and draped in the usual sterile fashion with Betadine 3.Patient was closely monitored during the procedure. Conscious sedation was used during the procedure to decrease patients anxiety. Vital signs were monitered during the entire procedure. Using anterior-posterior fluoroscopy, the L4-5 interlaminar space was identified and the skin over this site was marked and then infiltrated with 1% lidocaine subcutaneously. Subsequently, a 20-gauge Tuohy epidural needle was inserted and advanced toward the epidural space using the Loss of resistance to air technique and guided by AP and lateral fluoroscopy in the right paramedian approach . The correct needle position in the epidural space was verified with the injection of 1 mL of the water soluble contrast dye Omnipaque 180 contrast and observing an excellent epidurogram with the epidural spread of the dye, after negative aspiration for blood and CSF and in the absence of paresthesias. Again after negative aspiration, a 8 ml mixture containing 80 mg of DepoMedrol and 5 ml of preservative free Normal Saline, and 2 ml of preservative free Marcaine 0.25% solution was injected and a washout of epidurogram was seen. Needle was withdrawn intact, skin was cleansed, and bandages were applied. patient tolerated procedure well and was transferred to PACU in stable condition. COMPLICATIONS: None
[2017-10-03 08:06] VITALS: BP 139/80; PULSE 62
--- NOTE | 2017-10-03 08:09 | FL ---
EXAMINATION TYPE: FL guided pain mgmt statistic DATE OF EXAM: 10/03/2017 COMPARISON: NONE HISTORY: Back pain TECHNIQUE: Fluoroscopy. FINDINGS/IMPRESSION: Fluoroscopic guidance was provided during procedure performed by Dr. Ahn. A total of 3 seconds of fluoroscopic time was utilized during the procedure and 2 spot images was acq uired during a fluoroscopic-guided lumbar epidural.
== END 2017-10-03 08:17 | disposition home or self-care (01) ==
LOC: ORPAIN 06:08
PROVIDERS: ATTEND Anesthesiology
DX: M51.16 Intervertebral disc disorders with radiculopathy, lumbar region (principal); J38.1 Polyp of vocal cord and larynx
CPT/HCPCS: 62323; J1030; Q9966

== ENCOUNTER → 2017-10-07 | Outpatient (CLI) | payer MEDICARE ==
--- NOTE | 2017-10-07 09:01 | FL ---
EXAMINATION TYPE: FL barium swallow DATE OF EXAM: 10/07/2017 CLINICAL HISTORY: Difficulty speaking and swallowing. hx of polyp removal from his vocal cords 18 yea rs ago. TECHNIQUE: A double contrast esophagram is performed utilizing air and barium. A total of 1 min 25 seconds of fluoroscopic time was utilized during procedure. COMPARISON: None FINDINGS: On the initial swallow there are tertiary contractions within the distal esophagus in a thais nted secondary wave with no evidence of stricture or achalasia. Contrast flows readily through the ga stroesophageal junction into the stomach. Lateral image was performed due to retention of contrast in the piriform sinuses and vallecula with no evidence of laryngeal penetration or aspiration with thin liquid barium. No evidence of hiatal hernia is seen. No significant gastroesophageal reflux was seen during real time performance of this study. No focal outpouching is present. IMPRESSION: 1. Persistent minimal amount of residual contrast within the valleculae and piriform sinuses without evidence of laryngeal penetration or aspiration. 2. Tertiary contractions within the distal esophagus on a single pass only. This could relate to pres byesophagus or less likely neuromuscular disorder. 3. No evidence of obstruction, stricture, hiatal hernia, gastroesophageal reflux or diverticulum.
--- NOTE | 2017-10-07 09:07 | XR ---
EXAMINATION TYPE: XR chest 2V DATE OF EXAM: 10/07/2017 COMPARISON: NONE HISTORY: Shortness of breath and difficulty speaking. History of coronary artery bypass. TECHNIQUE: Frontal and lateral views of the chest are obtained. FINDINGS: There is no focal air space opacity, pleural effusion, or pneumothorax seen. Post CABG sivakumar nges are seen with prominence of the cardiac silhouette without cardiomegaly. Callused rib fracture i s seen of the right lower posterior rib. No acute fractures are seen. Mild left hemidiaphragm eventra tion is noted. Mild multilevel degenerative changes of the thoracic spine are present IMPRESSION: No acute cardiopulmonary process.
== END | disposition home or self-care (01) ==
LOC: RADFLMAIN 07:36
PROVIDERS: ATTEND Otolaryngology
DX: R05 Cough (principal); R13.10 Dysphagia, unspecified; J38.3 Other diseases of vocal cords; I10 Essential (primary) hypertension
CPT/HCPCS: 71046; 74220; 93005

== ENCOUNTER → 2017-10-22 | Outpatient (CLI) | payer MEDICARE ==
[2017-10-22 11:37] VITALS: BP 120/76; PULSE 83; RESP 18; TEMP 98.4
--- NOTE | 2017-10-22 11:48 | P.PN ---
Progress Note - Text Progress Note Date: 10/22/17 Patient returns for followup for chronic back pain with radiation to bilateral lower extremities, occasionally below knee. Patient underwent LESI procedure in September which helped him for approximately two days. Patient continues on oxycodone, ibuprofen medications for pain with some relief. Patient denies adverse drug effects from medications. Today, pt denies new-onset weakness, bowel/bladder incontinence, or any other signs or symptoms of cauda equina syndrome. There are no signs of acute intoxication, and no indications of medication diversion or overuse. In addition to above, 13-point review of systems is also negative for chest pain , shortness of breath, changes in vision, changes in hearing, new onset weakness , abdominal pain, diarrhea, extreme fatigue, malaise, fever, skin changes, homicidal or suicidal ideation, or bowel or bladder incontinence. Vital Signs: Reviewed in EMR Gen: WDWN, AAOx3, NAD HEENT: NCAT, EOMI, hearing grossly normal Pulm: resp unlabored Abd: soft, NT, ND Neck: supple, trachea midline ROM in flexion lumbar spine: reduced ROM in extension lumbar spine: reduced Lumbar paravertebral tenderness: + bilateral Facet loading: ++ bilateral SI joint tenderness: + R side Mars's test: + bilateral Straight leg raise: neg Imaging: Reviewed in EMR Assessment: 1. lumbar spinal stenosis 2. lumbar spondylosis without myelopathy 3. chronic pain syndrome Plan: 1. Explanation: Opioid and psychological risk scores were reviewed. Diagnoses , prognoses, and multiple treatment options including but not limited to physical therapy, interventional therapies, adjuvant medical therapies, narcotic medication therapies, and surgery were discussed with the patient and all questions were answered to the patient's satisfaction. 2. Opioid agreement: Patient has previously signed narcotic agreement, and was orally counseled to not overuse, abuse, divert, or cell medications, and to take them as prescribed by only 1 healthcare provider. The patient was also counseled to take medications as prescribed by only 1 healthcare provider and to store opioid medications in the safe and preferably locked location. Patient was also counseled not to drive while using narcotic medications and also to not use alcohol or any illicit or recreational drugs. The patient verbalized understanding that lack of compliance with any of the above and likely result in failure to renew narcotic prescriptions, possible discharge from the clinic, and possible legal ramifications thereafter if indicated. 3. Counseling: The patient was counseled extensively on SMOKING CESSATION, BODY MASS INDEX, EXERCISE. Specifically, the patient was instructed regarding the importance of smoking cessation, obesity, and exercise in the context of both chronic pain and overall health. 4. Procedures: none 5. Consultations: None 6. Investigations: UDS previously appropriate, MAPS queried and appropriate 7. Medications: oxycodone 20 mg #90 with one refill; refilled ibuprofen 8. MME/day: 90 (unchanged) 8. Disposition: f/u for re-eval in 8 weeks. Patient is planning to have sinus surgery with Dr. Yancey and may get some extra opioids from that physician; I advised him to have Dr. Yancey's office call us if that is the case. PQRS measures: 1-Patient's medications are documented in the chart. 2-Tobacco use is positive, counseling given 3-Patient has not had a pneumococcal vaccine. 4-Advanced care planning discussed, patient not eligible. 5-Opioid contract signed with the patient. 6-Pain positive, follow-up visit or procedure scheduled 7-Patient's blood pressure measured and documented, within normal limits. 8-Patient's weight was measured, and body mass index ABOVE the normal limits, and counseling was done. Patient instructed to follow up with PCP. 9-Patient WAS NOT identified as an unhealthy alcohol user.
== END | disposition home or self-care (01) ==
LOC: PNWHC3 11:22
PROVIDERS: ATTEND Anesthesiology
DX: G89.4 Chronic pain syndrome (principal); M54.9 Dorsalgia, unspecified; M48.061 Spinal stenosis, lumbar region without neurogenic claudication; M47.816 Spondylosis without myelopathy or radiculopathy, lumbar region; F17.200 Nicotine dependence, unspecified, uncomplicated; Z71.6 Tobacco abuse counseling; Z79.891 Long term (current) use of opiate analgesic; Z79.1 Long term (current) use of non-steroidal anti-inflammatories (NSAID)
CPT/HCPCS: 99211

== ENCOUNTER → 2017-10-22 | Outpatient (CLI) | payer MEDICARE ==
[2017-10-22 17:55] LABS: HCT 40.7 % (39.0-53.0); HGB 13.9 gm/dL (13.0-17.5); MCH 31.5 pg (25.0-35.0); MCV 92.8 fL (80.0-100.0); Mean Platelet Volume 8.2; Platelet Count 280 k/uL (150-450); RBC 4.39 m/uL (4.30-5.90); RDW 13.3 % (11.5-15.5); WBC 10.7 k/uL (3.8-10.6)
== END | disposition home or self-care (01) ==
LOC: LABPAT 11:54
PROVIDERS: ATTEND Anesthesiology
DX: Z01.812 Encounter for preprocedural laboratory examination (principal); R22.1 Localized swelling, mass and lump, neck
CPT/HCPCS: 36415; 85027

== ENCOUNTER 2017-10-24 11:56 | Day surgery (SDC) | payer MEDICARE ==
[2017-10-22 08:41] VITALS: BMI 31.6
[~2017-10-24 11:56] MED LIST changes: +LIDOCAINE 1% 20 ML VIAL (10MG/ML) FOR IV START INTRADERMA PRN
[2017-10-24] MEDS ORDERED: ONDANSETRON 4 MG/2 ML VIAL IVP ONE (12:40)
[2017-10-24] MEDS ORDERED: DEXAMETHASONE SOD PHOS (MDV) 100 MG/10 ML VIAL IV ONE (12:40)
[2017-10-24] MEDS ORDERED: FAMOTIDINE 20 MG/2 ML VIAL IV ONE (12:40)
[2017-10-24] MEDS ORDERED: MELOXICAM 7.5 MG TAB PO SCH (13:00)
[2017-10-24] MEDS ORDERED: GLYCOPYRROLATE 0.2 MG/ML 2 ML VIAL ONE (14:26)
[2017-10-24] MEDS ORDERED: ROCURONIUM BROMIDE 10 MG/ML 10 ML VIAL IV ONE (14:26)
[2017-10-24] MEDS ORDERED: PROPOFOL 10 MG/ML 20 ML VIAL IV ONE (14:26)
[2017-10-24] MEDS ORDERED: DEXAMETHASONE SOD PHOS (MDV) 100 MG/10 ML VIAL ONE (14:26)
[2017-10-24] MEDS ORDERED: MIDAZOLAM 2 MG/2 ML VIAL ONE (14:26)
[2017-10-24] MEDS ORDERED: LIDOCAINE 1% INJ 10MG/ML (20 ML MDV) ONE (14:26)
[2017-10-24] MEDS ORDERED: fentaNYL (PF) 50 MCG/ML 2 ML AMP ONE (14:26)
[2017-10-24] MEDS ORDERED: NEOSTIGMINE 1 MG/ML 10 ML VIAL ONE (14:26)
[2017-10-24] MEDS ORDERED: SUCCINYLCHOLINE CHLORIDE VIAL 200 MG/10 ML VIAL IV ONE (14:26)
[2017-10-24] MEDS ORDERED: EPINEPHrine 1 MG/ML (MDV) 30 ML VIAL IRRIGATION ONE (14:55)
--- NOTE | 2017-10-24 15:21 | P.OP ---
Date of Procedure: 10/24/17 Preoperative Diagnosis: Right vocal cord mass, cough, dysphasia Postoperative Diagnosis: Same Procedure(s) Performed: Triple endoscopy with biopsy of right vocal cord mass Anesthesia: JEANNINEA Surgeon: Gurvinder Yancey Estimated Blood Loss (ml): 0 Pathology: other (right vocal cord) Condition: stable Disposition: PACU Indications for Procedure: Patient has severe hoarseness. He was found have a mass of the right vocal cord very large and exophytic a biopsy was recommended and because of the patient's coughing and dysphagia issues we decided to proceed forward with a triple endoscopy and biopsy. Alternative therapies were discussed. Consent was obtained and all questions were answered. 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 No other pathology was noted. COPD was noted on endoscopy. Description of Procedure: This patient was taken to the operative room and placed in the supine position. A general inhalation anesthetic was administered to the patient by mask and subsequently intubated with an VESSEL LINER tube. A tooth guard was placed and a Jako laryngoscope was placed into the patient's mouth with care to avoid any trauma to the lips teeth gums or tongue. The base of tongue, vallecula, epiglottis, postcricoid space, piriform sinus, lateral pharynx and hypopharynx, true and false cords, ventricle, were inspected and great detail. The scope was placed on a Lewy. Patient was found have a large mass right vocal cord this was extending from the anterior commissure to the midportion causing some limited mobility of the vocal cord. The lesion was biopsied. A bronchoscope was then inserted into the lungs and all 12 segments of the lungs were evaluated with the laparoscope to the extent of visualization. There is no signs of any endobronchial lesions noted. The bronchoscope was then removed and the Jako laryngoscope and fluid was removed. Tooth guard was kept in place. An esophagoscope was then inserted into the patient's mouth and we extended the scope into the right piriform sinus into the esophagus. We passed the rigid esophagoscope into the esophagus to the lower esophageal sphincter and then in retrograde fashion evaluated the esophagus by pulling back to the upper esophageal sphincter. The entire length of the esophagus was evaluated directly. The patient tolerated this procedure well. Follow-up will be in the office in 1 week. Voice rest was recommended.
[2017-10-24 15:23] VITALS: TEMP 96.9
[2017-10-24 15:49] VITALS: RESP 16
[2017-10-24 15:57] VITALS: BP 135/67; PULSE 62
== END 2017-10-24 16:40 | disposition home or self-care (01) ==
LOC: OR 11:56
PROVIDERS: ATTEND Otolaryngology
DX: C32.0 Malignant neoplasm of glottis (principal); J44.9 Chronic obstructive pulmonary disease, unspecified; K21.9 Gastro-esophageal reflux disease without esophagitis; M54.5 Low back pain; G89.29 Other chronic pain; I25.2 Old myocardial infarction; F17.210 Nicotine dependence, cigarettes, uncomplicated; Z95.5 Presence of coronary angioplasty implant and graft; Z95.1 Presence of aortocoronary bypass graft; Z79.891 Long term (current) use of opiate analgesic; Z79.1 Long term (current) use of non-steroidal anti-inflammatories (NSAID); Z79.899 Other long term (current) drug therapy
CPT/HCPCS: 88305; 31535; 31622; 43191; J2250; J0330; J2710; J2405; J2001; J3010; J1100; J2704

== ENCOUNTER → 2017-12-17 | Outpatient (CLI) | payer MEDICARE ==
[2017-12-17 13:53] VITALS: BP 160/86; PULSE 81; RESP 16
--- NOTE | 2017-12-17 14:28 | P.PAINPG ---
Subjective Progress Note Date: 12/17/17 This is follow-up visit for this patient with a history of severe and chronic low back pain secondary to lumbar degenerative disc diseases , lumbar spondylosis with facet arthropathy, We have done interventional pain procedures lumbar epidural steroid injection patient gets her term benefit from it, only 2 days of pain relief, and we have done radiofrequency ablation of the medial branch lumbar area he got only a few weeks of pain relief Patients currently on oxycodone 20 mg every 8 hours, Motrin 800 mg every 8 hours alternating with Mobic 15 mg daily Patient denies any side effects of the medication, denies excessive drowsiness or sleepiness, denies suicidal ideation, and reports that the current pain medication is helping to control the pain ,and improve activity of daily living , he continued to have severe low back pain associated to numbness and tingling sensation in the lower extremities Patient denies any motor or sensory deficit , patient denies any fever or night sweats, denies any change in the bowel movements or urination and recently diagnosed with throat cancer, and he is doing with surgery and radiation therapy Patient had MRI of the lumbar spine done previously and it showed patient had an L5-S1 disc this occasion and L4 5 lumbar facet arthropathy Physical Examinations : 1-Constitutional : Cooperative , not in acute distress . 2-HEENT : nech ; supple , no Lymphadenopathy , no Thyromegaly , normal thyroid size . eyes : no ptosis , no icterus, no photophobia . ENT : normal of hearing , normal oropharynx , no Thrush . 3- Respiratory : Chest clear to auscultations Bilaterally , no wheezing , no Rhonchi . 4- Cardiovascular : regular rate and rhythem , S1 , S2 , no S3 , no S4. 5- Gastrointestinal : abdomen soft no tenderness , bowel sounds positive all four quadrents , no organomegally . 6- Genitourinary : Defferred . 7- neurologic: Cranial nerve II to XII intact , no focal neurological deffecit . 8- Psychatric: alert , oriented X 3 , appropriate affect , intact judgment and insight . 9- Lymphatic : no Lymphadenopathy . 10- Musculoskeltal : exams of the cervical spine = motor strength normal bilateral upper extremities facet loading test cervical area positive. exams of the Lumber spine =motor strength lower extremities ,thigh and legs .5/5 deep tendon reflexes : normal Knee Jerk , normal ankle Jerk . lumber facet Loading Test positive strait leg raising test positive at 30 degree , RT ,LT , Fabere test positive RT and positive LT . Range of motion: Range of motion in flexion of the lumbar spine 30 degrees Range of motion range of motion of extension of the lumbar spine 10 Sever tenderness over the Sacroiliac joint on the Right , and Left side Assessment and plan = Chronic low back pain secondary to lumbar degenerative disc disease , lumbar spondylosis with facet arthropathy without myelopathy Rediagnosed throat cancer chronic and current use of high-risk medication (Opioids). The patient was counseled about risk of opioid use, psychological risk associated with opioids and was orally counseled to not overuse , divert,or sell dictations to take medications as prescribed only , and to restore medication in safe location , the patient counseled against driving while using narcotic medications , and also not to use alcohol or any illicit recreational drugs, patient's verbalized understanding that the lack of compliance will result in failure to renew narcotic prescription and possible discharge from the clinic - diagnoses, prognosis, and treatment options including but not limited to physical therapy, surgical interventions, interventional therapies , and medication management including narcotics and adjuvant medication were discussed with the patient and all the questions answered Prescription refill for oxycodone 20 mg every 8 hours dispense 90 with 1 refill, Motrin 800 mg every 8 hours when necessary. PQRS Measure Charge Sheet Measure #130: Documentation of Current Meds in Medical Chart: Patient's medications documented in chart Measure #226: Tobacco Use: Screen & Cessation Intervention: Pt screened for tobacco use AND intervention given Measure #111: Pneumonia Vaccination: Pneumococcal vaccine NOT administered or previously given Measure #47: Advance Care Plan: Advance care planning discussed & documented, plan or surrogate given Measure #412: Opioid Treatment Agreement: Documented signed opioid trtmnt agreemnt min once during opioid trtmnt Measure #408: Opioid Therapy Follow-up Evaluation: Patient had f/u eval minimum every 3 months during opioid therapy Measure #317: Preventitive Care & Scrn High Bld Press & F/U: Pre-hypertensive or hypertensive BP documented, pt will f/u with PCP Measure #128: Body Mass Index (BMI) Screening & Follow-up: BMI documented ABOVE normal parameters - f/u documented Measure #131: Pain Assessment & Follow-up: Pain positive & plan documented, Follow-up scheduled Measure #431: Unhealthy Alcohol Use Preventative Care & Scrn: Patient not identified as an unhealthy alcohol user PQRS Narrative: Smoking Status Current every day smoker Narcotic Agreement Date Signed 05/24/16 Hx Alcohol Use (MH) Yes: RARE Home Medications: Ambulatory Orders Omeprazole [PriLOSEC] 20 mg PO DAILY PRN 12/19/15 Multivitamin [Men's Multi-Vitamin] 1 tab PO DAILY 07/19/16 Ibuprofen [Motrin] 800 mg PO TID PRN #90 tab 10/22/17 oxyCODONE HCL 20 mg PO Q8HR PRN #90 tab 10/22/17 Meloxicam [Mobic] 15 mg PO DAILY #14 tab 10/24/17 Controlled Substance Measures - Controlled Substance Measures Is patient prescribed a controlled substance at discharge?: Yes When asked, does pt state using other controlled substances?: Yes If prescribed controlled substance>3 days was MAPS reviewed?: Yes If Rx opioid, was Start Talking consent form obtained?: Yes If opioid is for acute pain is fill amount 7 days or less?: No Was information provided regarding opioid addiction?: Yes
== END | disposition home or self-care (01) ==
LOC: PNWHC3 12:32
PROVIDERS: ATTEND Specialist
DX: G89.29 Other chronic pain (principal); M54.5 Low back pain; M51.36 Other intervertebral disc degeneration, lumbar region; M47.816 Spondylosis without myelopathy or radiculopathy, lumbar region; M46.86 Other specified inflammatory spondylopathies, lumbar region; C14.0 Malignant neoplasm of pharynx, unspecified; F17.200 Nicotine dependence, unspecified, uncomplicated; Z79.891 Long term (current) use of opiate analgesic; Z79.1 Long term (current) use of non-steroidal anti-inflammatories (NSAID); Z79.899 Other long term (current) drug therapy; Z71.89 Other specified counseling
CPT/HCPCS: 99211

== ENCOUNTER → 2018-02-11 | Outpatient (CLI) | payer MEDICARE ==
[2018-02-11 11:08] VITALS: BP 193/70; PULSE 88; RESP 18; TEMP 97.6
--- NOTE | 2018-02-11 12:28 | P.PAINPG ---
Subjective Progress Note Date: 02/11/18 This is follow-up visit for this patient with a history of severe and chronic low back pain secondary to lumbar degenerative disc diseases , lumbar spondylosis with facet arthropathy, We have done interventional pain procedures lumbar epidural steroid injection patient gets her term benefit from it, only 2 days of pain relief, and we have done radiofrequency ablation of the medial branch lumbar area . Patients currently on oxycodone 20 mg every 8 hours, Motrin 800 mg every 8 hours alternating with Mobic 15 mg daily Patient denies any side effects of the medication, denies excessive drowsiness or sleepiness, denies suicidal ideation, and reports that the current pain medication is helping to control the pain ,and improve activity of daily living , he continued to have severe low back pain associated to numbness and tingling sensation in the lower extremities Patient denies any motor or sensory deficit , patient denies any fever or night sweats, denies any change in the bowel movements or urination and recently diagnosed with throat cancer, and he is doing radiation therapy to the [place] Patient had MRI of the lumbar spine done previously and it showed patient had an L5-S1 disc this occasion and L4 5 lumbar facet arthropathy Physical Examinations : 1-Constitutional : Cooperative , not in acute distress . 2-HEENT : nech ; supple , no Lymphadenopathy , no Thyromegaly , normal thyroid size . eyes : no ptosis , no icterus, no photophobia . ENT : normal of hearing , normal oropharynx , no Thrush . 3- Respiratory : Chest clear to auscultations Bilaterally , no wheezing , no Rhonchi . 4- Cardiovascular : regular rate and rhythem , S1 , S2 , no S3 , no S4. 5- Gastrointestinal : abdomen soft no tenderness , bowel sounds positive all four quadrents , no organomegally . 6- Genitourinary : Defferred . 7- neurologic: Cranial nerve II to XII intact , no focal neurological deffecit . 8- Psychatric: alert , oriented X 3 , appropriate affect , intact judgment and insight . 9- Lymphatic : no Lymphadenopathy . 10- Musculoskeltal : exams of the cervical spine = motor strength normal bilateral upper extremities facet loading test cervical area positive. exams of the Lumber spine =motor strength lower extremities ,thigh and legs .5/5 deep tendon reflexes : normal Knee Jerk , normal ankle Jerk . lumber facet Loading Test positive strait leg raising test positive at 30 degree , RT ,LT , Fabere test positive RT and positive LT . Range of motion: Range of motion in flexion of the lumbar spine 30 degrees Range of motion range of motion of extension of the lumbar spine 10 Sever tenderness over the Sacroiliac joint on the Right , and Left side Assessment and plan = Chronic low back pain secondary to lumbar degenerative disc disease , lumbar spondylosis with facet arthropathy without myelopathy diagnosed throat cancer Hypertension patient's blood pressure is significantly discussed with the patient the need to follow up with her primary care regarding his high blood pressure chronic and current use of high-risk medication (Opioids). The patient was counseled about risk of opioid use, psychological risk associated with opioids and was orally counseled to not overuse , divert,or sell dictations to take medications as prescribed only , and to restore medication in safe location , the patient counseled against driving while using narcotic medications , and also not to use alcohol or any illicit recreational drugs, patient's verbalized understanding that the lack of compliance will result in failure to renew narcotic prescription, and possible discharge from the clinic - diagnoses, prognosis, and treatment options including but not limited to physical therapy, surgical interventions, interventional therapies , and medication management including narcotics and adjuvant medication were discussed with the patient and all the questions answered Prescription refill for oxycodone 20 mg every 8 hours dispense 90 with 1 refill, MAPS reviewed and it was appropriate, Patient currently is not a candidate for interventional pain management until he finished radiation therapy of the laryngeal cancer Objective - Vital Signs Vital signs: Vital Signs Temp 97.6 F 02/11/18 11:03 Pulse 88 02/11/18 11:03 Resp 18 02/11/18 11:03 BP 193/70 02/11/18 11:03 Pulse Ox 96 02/11/18 11:03 Intake & Output 02/10/18 02/11/18 02/11/18 18:59 06:59 18:59 Weight 104.326 kg PQRS Measure Charge Sheet Measure #130: Documentation of Current Meds in Medical Chart: Patient's medications documented in chart Measure #226: Tobacco Use: Screen & Cessation Intervention: Pt screened for tobacco use AND intervention given Measure #111: Pneumonia Vaccination: Pneumococcal vaccine NOT administered or previously given Measure #47: Advance Care Plan: Advance care planning discussed & documented, pt chose/unable to give Measure #412: Opioid Treatment Agreement: Documented signed opioid trtmnt agreemnt min once during opioid trtmnt Measure #408: Opioid Therapy Follow-up Evaluation: Patient had f/u eval minimum every 3 months during opioid therapy Measure #317: Preventitive Care & Scrn High Bld Press & F/U: Pre-hypertensive or hypertensive BP documented, pt will f/u with PCP Measure #128: Body Mass Index (BMI) Screening & Follow-up: BMI documented ABOVE normal parameters - f/u documented Measure #131: Pain Assessment & Follow-up: Pain positive & plan documented, Follow-up scheduled PQRS Narrative: Smoking Status Current every day smoker Do You Want the Pneumonia No Vaccine AT THIS TIME? Narcotic Agreement Date Signed 05/24/16 Blood Pressure 193/70 Pain Intensity [Right Lower 5 Back] Scale Used Numeric (1 - 10) Hx Alcohol Use (MH) Yes: RARE Home Medications: Ambulatory Orders Omeprazole [PriLOSEC] 20 mg PO DAILY PRN 12/19/15 Multivitamin [Men's Multi-Vitamin] 1 tab PO DAILY 07/19/16 Ibuprofen [Motrin] 800 mg PO TID PRN #90 tab 10/22/17 oxyCODONE HCL 20 mg PO Q8HR PRN #90 tab 10/22/17 Meloxicam [Mobic] 15 mg PO DAILY #14 tab 10/24/17 Controlled Substance Measures - Controlled Substance Measures Is patient prescribed a controlled substance at discharge?: Yes When asked, does pt state using other controlled substances?: No If prescribed controlled substance>3 days was MAPS reviewed?: Yes If Rx opioid, was Start Talking consent form obtained?: Yes If opioid is for acute pain is fill amount 7 days or less?: No Was information provided regarding opioid addiction?: Yes
== END | disposition home or self-care (01) ==
LOC: PNWHC3 10:45
PROVIDERS: ATTEND Specialist
DX: G89.29 Other chronic pain (principal); M54.5 Low back pain; M51.36 Other intervertebral disc degeneration, lumbar region; M47.816 Spondylosis without myelopathy or radiculopathy, lumbar region; M46.86 Other specified inflammatory spondylopathies, lumbar region; I10 Essential (primary) hypertension; C14.0 Malignant neoplasm of pharynx, unspecified; F17.200 Nicotine dependence, unspecified, uncomplicated; Z79.891 Long term (current) use of opiate analgesic; Z79.1 Long term (current) use of non-steroidal anti-inflammatories (NSAID); Z79.899 Other long term (current) drug therapy; Z71.89 Other specified counseling; Z92.3 Personal history of irradiation
CPT/HCPCS: 99211

== ENCOUNTER 2018-02-20 20:37 | Inpatient (IN) | payer MEDICARE ==
[2018-02-20] MEDS ORDERED: NALOXONE 0.4 MG/ML 1 ML VIAL IV PRN (20:48)
--- NOTE | 2018-02-20 20:48 | ED ---
General Adult HPI - General Chief complaint: ENT Stated complaint: ANITA/throat closing Time Seen by Provider: 02/20/18 20:41 Source: patient, family, RN notes reviewed, old records reviewed Mode of arrival: ambulatory Limitations: no limitations - History of Present Illness Initial comments: 62-year-old male history of laryngeal cancer status post radiation presents with worsening dyspnea. I was contacted by ENT prior to arrival. Patient is presenting for emergent tracheostomy. Patient states that his breathing is worsened, significantly with lying flat. - Related Data Home Medications Medication Instructions Recorded Confirmed Omeprazole [PriLOSEC] 20 mg PO DAILY PRN 12/19/15 02/20/18 Previous Rx's Medication Instructions Recorded Ibuprofen [Motrin] 800 mg PO TID PRN #90 tab 10/22/17 oxyCODONE HCL 20 mg PO Q8HR PRN #90 tab 10/22/17 Allergies Allergy/AdvReac Type Severity Reaction Status Date / Time No Known Allergies Allergy Verified 02/20/18 21:14 Review of Systems ROS Statement: Those systems with pertinent positive or pertinent negative responses have been documented in the HPI. ROS Other: All systems not noted in ROS Statement are negative. Past Medical History Past Medical History: Cancer, GERD/Reflux, Hearing Disorder / Deafness, Myocardial Infarction ([place]) Additional Past Medical History / Comment(s): recent dx of CA-rt vocal cord mass -starting radiation November 2017,HAS ALWAYS HAD A RASPY VOICE, BUT SINCE JUNE HE HAS BEEN VERY HOARSE (HAVING VOCAL CORD BX IN OCTOBER). BACK PAIN THAT RADIATES TO BOTH LEGS. [place] RT EAR. Last Myocardial Infarction Date:: 1998 History of Any Multi-Drug Resistant Organisms: None Reported Past Surgical History: Coronary Bypass/CABG, Heart Catheterization With Stent, Orthopedic Surgery Additional Past Surgical History / Comment(s): COLONOSCOPY. RT KNEE SURG. LT ROTATOR CUFF SURG. Pain Procedures. Past Anesthesia/Blood Transfusion Reactions: No Reported Reaction Date of Last Stent Placement:: 1998 Past Psychological History: No Psychological Hx Reported Smoking Status: Current every day smoker Past Alcohol Use History: None Reported Past Drug Use History: None Reported - Past Family History Mother Family Medical History: No Reported History General Exam Limitations: no limitations General appearance: alert, in distress (Mild respiratory distress) Eye exam: Present: normal appearance, PERRL Neck exam: Present: normal inspection Respiratory exam: Present: respiratory distress (mild), stridor (Fine inspiratory stridor) Cardiovascular Exam: Present: regular rate, normal rhythm GI/Abdominal exam: Present: soft. Absent: distended, tenderness, guarding Neurological exam: Present: alert, oriented X3, CN II-XII intact Psychiatric exam: Present: normal affect, normal mood Skin exam: Present: warm, dry, intact. Absent: cyanosis, diaphoretic Course Vital Signs 02/20/18 02/20/18 02/20/18 20:40 21:03 21:16 Temperature 98.6 F Pulse Rate 72 65 64 Respiratory 18 18 20 Rate Blood Pressure 159/86 159/86 O2 Sat by Pulse 97 96 96 Oximetry Medical Decision Making - Medical Decision Making 62-year-old male with laryngeal cancer presenting for urgent tracheostomy. Patient is evaluated emergency department, ENT is present. Sclerae team has been called in prior to arrival. Patient will be taken to the OR for urgent tracheostomy. IV established, preop laboratory studies have been obtained. - Lab Data Result diagrams: 02/21/18 05:05 02/21/18 05:05 Disposition Clinical Impression: Laryngeal carcinoma, Stridor Disposition: ADMITTED IP TO THIS HOSP Condition: Serious Is patient prescribed a controlled substance at d/c from ED?: No Decision to Admit Reason: Admit from EC Decision Date: 02/20/18 Decision Time: 20:48
[2018-02-20 21:18] LABS: Prothrombin Time 9.5 sec (9.0-12.0)
[2018-02-20 21:20] LABS: ALT 25 U/L (21-72); AST 19 U/L (17-59); Alkaline Phosphatase 85 U/L (38-126); Anion Gap 10 mmol/L; Blood Urea Nitrogen 17 mg/dL (9-20); Calcium 9.7 mg/dL (8.4-10.2); Carbon Dioxide 24 mmol/L (22-30); Chloride 104 mmol/L (98-107); Glucose 104 mg/dL (74-99); Sodium 138 mmol/L (137-145); Total Bilirubin 0.6 mg/dL (0.2-1.3); Total Protein 6.8 g/dL (6.3-8.2)
[2018-02-20] MEDS ORDERED: PROPOFOL 10 MG/ML 20 ML VIAL IV ONE (21:22)
[2018-02-20] MEDS ORDERED: LACTATED RINGERS 1,000 ML IV ONE (21:22)
[2018-02-20] MEDS ORDERED: ROCURONIUM BROMIDE 10 MG/ML 10 ML VIAL IV ONE (21:22)
[2018-02-20] MEDS ORDERED: MIDAZOLAM 2 MG/2 ML VIAL ONE (21:22)
[2018-02-20] MEDS ORDERED: SODIUM CHLORIDE 0.9% 100 ML with ceFAZolin 2,000 MG IV ONE ×2 (21:30)
[2018-02-20 21:33] LABS: Basophils # (A) 0.1 k/uL (0-0.2); Basophils % (A) 1 %; Eosinophils # (A) 0.2 k/uL (0-0.7); Eosinophils % (A) 2 %; HCT 43.6 % (39.0-53.0); HGB 14.1 gm/dL (13.0-17.5); Lymphocytes # (A) 2.3 k/uL (1.0-4.8); Lymphocytes % (A) 25 %; MCHC 32.5 g/dL (31.0-37.0); MCV 95.4 fL (80.0-100.0); Monocytes # (A) 0.8 k/uL (0-1.0); Monocytes % (A) 8 %; Neutrophils # (A) 5.8 k/uL (1.3-7.7); Neutrophils % (A) 62 %; Platelet Count 366 k/uL (150-450); RBC 4.57 m/uL (4.30-5.90); RDW 13.8 % (11.5-15.5); WBC 9.3 k/uL (3.8-10.6)
[2018-02-20] MEDS ORDERED: LIDOCAINE 1%-EPI 1:100,000 30 ML VIAL SQ ONE ×2 (21:47)
[2018-02-20] MEDS ORDERED: BUPIVACAIN-EPI 0.5%-1:200,000 30 ML VIAL SQ ONE ×2 (21:47)
[2018-02-20] MEDS ORDERED: EPINEPHrine (PF) 1 MG/ML AMP SQ ONE (22:36)
--- NOTE | 2018-02-20 23:07 | P.OP ---
Date of Procedure: 02/20/18 Preoperative Diagnosis: Stridor Impending airway compromise Status post history of laryngeal cancer with recent radiotherapy treatment rule out persistent malignancy Postoperative Diagnosis: Same Procedure(s) Performed: Tracheostomy Thyroid isthmusectomy Direct microscopic laryngoscopy and biopsy Anesthesia: MAC Surgeon: Gurvinder Yancey Estimated Blood Loss (ml): 10 Pathology: other (Bilateral vocal cord biopsies) Condition: stable Disposition: PACU Indications for Procedure: This patient recently underwent radiotherapy for a large bulky T2 laryngeal carcinoma. This patient has developed some airway compromise with worsening stridor. I evaluated the patient in the office the other day and recommended a tracheotomy but he refused so therefore he was in agreement to obtain a second . I think the patient has a significant risk of persistent malignancy due to the patient's significant laryngeal bulky changes. This patient's airway worsened over the last 24 hours and I was called this evening through the office phone by his nephew that his airway was worsening. He was seen in the emergency room and a tracheotomy was again recommended and he agreed this time to undergo a tracheotomy. Biopsy was also recommended. Consent was obtained. All risks, benefits, and alternative therapies were discussed. Operative Findings: Patient had a massive bulky fullness to the larynx with obliteration of all laryngeal anatomy. Biopsies were performed. Airway was 1-2 mm. Description of Procedure: This patient was taken to the operative room and placed in the supine position with the head in an extended position. The neck was sterilely prepped and draped in usual fashion and anesthetized with lidocaine and bupivacaine. A vertical incision was made from the cricoid to the suprasternal notch and dissection was carried down through the strap muscles to the isthmus of the thyroid. The isthmusectomy was performed and the trachea was exposed. We utilized a LigaSure for this part of the surgery. After the trachea was exposed incision was made between the second and third tracheal rings with an inferiorly based flap developed exposing the trachea. A #7 biovona tracheotomy tube was inserted. Trach ties were placed. The incision was closed in the usual fashion and trach stay ties were utilized utilizing a 2-0 silk. The trach tube was secured and ventilation was excellent. Attention was then paid to the mouth where tooth guard was placed. His teeth are in very poor condition. A Jako laryngoscope was placed into the patient's mouth with care to avoid any trauma to the lips teeth gums and tongue. Mouth was opened tongue was depressed and the entire oropharynx and hypopharynx was evaluated. The epiglottis vallecula all appeared to be unremarkable but the introitus of the larynx was completely occluded with profuse tissue. The tissue was amorphous and profuse and biopsies were performed bilaterally of these abnormal tissue. Again the vocal cord anatomy was so distorted that no anatomical landmarks such as vocal cords. Cords etc. were able to be identified. The amount of occlusion was impressive in his airway was 1-2 mm. Patient tolerated this procedure well.
[2018-02-20 23:09] LABS: Glucose,Whole Blood 131 mg/dL (75-99)
--- NOTE | 2018-02-20 23:13 | P.GSCN ---
History of Present Illness Consult date: 02/20/18 Reason for Consult: airway compromise Requesting physician: Fadia Sal History of present illness: This is a 62-year-old white male who presented this evening with worsening airway. He became stridorous. He was seen in office previously and a tracheotomy was recommended but the patient refused and wished to seek a second opinion. He status post radiotherapy for bulking T2 laryngeal squamous cell carcinoma. He was P 16 negative. He has been treated through medical and radiation oncology. He was brought to the hospital by his nephew. His respirations were difficult and stridor was noted Review of Systems - Constitutional Reports anorexia, Reports poor appetite - EENT Ears, nose, mouth and throat: Reports bleeding gums, Reports swelling in throat , Reports sore throat - Cardiovascular Denies chest pain - Respiratory Reports congestion - Gastrointestinal Denies abdominal pain - Genitourinary Denies discharge - Musculoskeletal Denies arm numbness/tingling - Integumentary Denies brittle nails - Neurological Denies balance difficulties - Psychiatric Reports change in appetite - Endocrine Reports excessive thirst - Hematologic/Lymphatic Denies easy bleeding - Allergic/Immunologic Denies gluten intolerance Past Medical History Past Medical History: Cancer, GERD/Reflux, Hearing Disorder / Deafness, Myocardial Infarction ([place]) Additional Past Medical History / Comment(s): recent dx of CA-rt vocal cord mass -starting radiation November 2017,HAS ALWAYS HAD A RASPY VOICE, BUT SINCE JUNE HE HAS BEEN VERY HOARSE (HAVING VOCAL CORD BX IN OCTOBER). BACK PAIN THAT RADIATES TO BOTH LEGS. [place] RT EAR. Last Myocardial Infarction Date:: 1998 History of Any Multi-Drug Resistant Organisms: None Reported Past Surgical History: Coronary Bypass/CABG, Heart Catheterization With Stent, Orthopedic Surgery Additional Past Surgical History / Comment(s): COLONOSCOPY. RT KNEE SURG. LT ROTATOR CUFF SURG. Pain Procedures. Past Anesthesia/Blood Transfusion Reactions: No Reported Reaction Date of Last Stent Placement:: 1998 Past Psychological History: No Psychological Hx Reported Smoking Status: Current every day smoker Past Alcohol Use History: None Reported Past Drug Use History: None Reported - Past Family History Mother Family Medical History: No Reported History Medications and Allergies Home Medications Medication Instructions Recorded Confirmed Type Omeprazole [PriLOSEC] 20 mg PO DAILY PRN 12/19/15 02/20/18 History Ibuprofen [Motrin] 800 mg PO TID PRN #90 tab 10/22/17 02/20/18 Rx oxyCODONE HCL 20 mg PO Q8HR PRN #90 tab 10/22/17 02/20/18 Rx Allergies Allergy/AdvReac Type Severity Reaction Status Date / Time No Known Allergies Allergy Verified 02/20/18 21:14 Surgical - Exam Osteopathic Statement: *. No significant issues noted on an osteopathic structural exam other than those noted in the History and Physical/Consult. Vital Signs Temp Pulse Resp Pulse Ox 98.6 F 72 18 97 02/20/18 20:40 02/20/18 20:40 02/20/18 20:40 02/20/18 20:40 - General well developed, well nourished, moderate distress, obese - Eyes PERRL, normal ocular movement - ENT normal pinna, normal nares, normal mucosa - Neck no masses, no bruits, trachea midline - Respiratory Patient has stridorous and has difficulty breathing with significant shortness of breath - Integumentary no rash - Neurologic normal coordination, normal sensation - Psychiatric oriented to time, oriented to person, oriented to place, no speech is normal Results - Labs 02/20/18 20:55 02/20/18 20:55 Abnormal Lab Results - Last 24 Hours (Table) 02/20/18 Range/Units 20:55 Glucose 104 H (74-99) mg/dL Diabetes panel 02/20/18 Range/Units 20:55 Sodium 138 (137-145) mmol/L Potassium 5.0 (3.5-5.1) mmol/L Chloride 104 (98-107) mmol/L Carbon Dioxide 24 (22-30) mmol/L BUN 17 (9-20) mg/dL Creatinine 0.78 (0.66-1.25) mg/dL Glucose 104 H (74-99) mg/dL Calcium 9.7 (8.4-10.2) mg/dL AST 19 (17-59) U/L ALT 25 (21-72) U/L Alkaline Phosphatase 85 (38-126) U/L Total Protein 6.8 (6.3-8.2) g/dL Albumin 4.0 (3.5-5.0) g/dL Calcium panel 02/20/18 Range/Units 20:55 Calcium 9.7 (8.4-10.2) mg/dL Albumin 4.0 (3.5-5.0) g/dL Pituitary panel 02/20/18 Range/Units 20:55 Sodium 138 (137-145) mmol/L Potassium 5.0 (3.5-5.1) mmol/L Chloride 104 (98-107) mmol/L Carbon Dioxide 24 (22-30) mmol/L BUN 17 (9-20) mg/dL Creatinine 0.78 (0.66-1.25) mg/dL Glucose 104 H (74-99) mg/dL Calcium 9.7 (8.4-10.2) mg/dL Adrenal panel 02/20/18 Range/Units 20:55 Sodium 138 (137-145) mmol/L Potassium 5.0 (3.5-5.1) mmol/L Chloride 104 (98-107) mmol/L Carbon Dioxide 24 (22-30) mmol/L BUN 17 (9-20) mg/dL Creatinine 0.78 (0.66-1.25) mg/dL Glucose 104 H (74-99) mg/dL Calcium 9.7 (8.4-10.2) mg/dL Total Bilirubin 0.6 (0.2-1.3) mg/dL AST 19 (17-59) U/L ALT 25 (21-72) U/L Alkaline Phosphatase 85 (38-126) U/L Total Protein 6.8 (6.3-8.2) g/dL Albumin 4.0 (3.5-5.0) g/dL Assessment and Plan (1) Laryngeal edema determined by laryngoscopy Current Visit: Yes Status: Acute Code(s): J38.4 - EDEMA OF LARYNX SNOMED Code(s): 57925807 Plan: This patient is to undergo a tracheotomy to secure his airway. A consent was obtained QUESTIONS were answered. Patient is also recommended to undergo a repeat biopsy. Consent was again obtained and all questions were answered. We will stabilize him after tracheotomy. I'm requesting that he go down to the head and neck oncologist Saturday at noon when he has an appointment for an opinion. We will see with the pathology report shows. If there is a recurrent or persistent malignancy a laryngectomy is recommended. Time with Patient: Greater than 30
[2018-02-20] MEDS ORDERED: IBUPROFEN 800 MG TAB PO PRN (23:20)
[2018-02-20 23:51] LABS: Basophils % (A) 0 %; Eosinophils # (A) 0.1 k/uL (0-0.7); Eosinophils % (A) 1 %; HCT 39.7 % (39.0-53.0); HGB 13.1 gm/dL (13.0-17.5); Lymphocytes # (A) 1.3 k/uL (1.0-4.8); Lymphocytes % (A) 13 %; MCH 31.3 pg (25.0-35.0); MCHC 33.1 g/dL (31.0-37.0); MCV 94.5 fL (80.0-100.0); Mean Platelet Volume 6.4; Monocytes # (A) 0.5 k/uL (0-1.0); Monocytes % (A) 5 %; Neutrophils # (A) 8.2 k/uL (1.3-7.7); Neutrophils % (A) 79 %; Platelet Count 319 k/uL (150-450); RDW 13.7 % (11.5-15.5); WBC 10.3 k/uL (3.8-10.6)
[2018-02-20 23:57] LABS: ALT 25 U/L (21-72); AST 16 U/L (17-59); Albumin 3.5 g/dL (3.5-5.0); Alkaline Phosphatase 74 U/L (38-126); Anion Gap 8 mmol/L; Blood Urea Nitrogen 16 mg/dL (9-20); Calcium 9.2 mg/dL (8.4-10.2); Carbon Dioxide 25 mmol/L (22-30); Chloride 105 mmol/L (98-107); Glucose 129 mg/dL (74-99); Potassium 4.2 mmol/L (3.5-5.1); Sodium 138 mmol/L (137-145); Total Bilirubin 0.4 mg/dL (0.2-1.3)
[2018-02-20] MEDS ORDERED: MORPHINE SULFATE 10 MG/ML SYRINGE IV PRN (23:58)
--- NOTE | 2018-02-20 23:59 | XR ---
EXAMINATION TYPE: XR chest 1V portable DATE OF EXAM: 02/20/2018 COMPARISON: 10/07/2017 HISTORY: Tracheostomy TECHNIQUE: Single frontal view of the chest is obtained. FINDINGS: There is tracheostomy tube that appears to be in good position. Lungs are clear. There is no heart failure. Costophrenic angles are clear. There are chest leads. IMPRESSION: No active cardiopulmonary disease. Tracheostomy tube appears in good position. No pneumo thorax.
[2018-02-21] MEDS: MORPHINE SULFATE 4 MG/ML SYRINGE IV PRN ×2 (00:34→06:38)
[2018-02-21] MEDS: LACTATED RINGERS 1,000 ML IV SCH ×2 (00:36→09:30)
[2018-02-21] MEDS: ceFAZolin 1,000 MG in DEXTROSE/WATER 1 50ML.BAG IVPB SCH ×3 (02:25→17:06)
[2018-02-21 05:19] LABS: Basophils % (A) 0 %; Eosinophils # (A) 0.1 k/uL (0-0.7); Eosinophils % (A) 1 %; HCT 40.8 % (39.0-53.0); Lymphocytes # (A) 1.2 k/uL (1.0-4.8); Lymphocytes % (A) 9 %; MCHC 31.9 g/dL (31.0-37.0); MCV 94.2 fL (80.0-100.0); Mean Platelet Volume 6.1; Monocytes # (A) 0.6 k/uL (0-1.0); Monocytes % (A) 5 %; Neutrophils % (A) 84 %; Platelet Count 315 k/uL (150-450); RBC 4.33 m/uL (4.30-5.90); RDW 13.7 % (11.5-15.5)
[2018-02-21 05:26] LABS: Anion Gap 7 mmol/L; Blood Urea Nitrogen 14 mg/dL (9-20); Calcium 9.2 mg/dL (8.4-10.2); Carbon Dioxide 29 mmol/L (22-30); Chloride 103 mmol/L (98-107); Glucose 124 mg/dL (74-99); Magnesium 1.9 mg/dL (1.6-2.3); Phosphorus 3.5 mg/dL (2.5-4.5); Potassium 4.8 mmol/L (3.5-5.1); Sodium 139 mmol/L (137-145)
[2018-02-21] MEDS: MAGNESIUM SULFATE-D5W PMX 1 GM in DEXTROSE/WATER 1 100ML.BAG IVPB SCH ×2 (06:34→09:19)
[2018-02-21] MEDS ORDERED: PANTOPRAZOLE 40 MG TABLET PO PRN (07:30)
--- NOTE | 2018-02-21 07:30 | XR ---
EXAMINATION TYPE: XR chest 1V DATE OF EXAM: 02/21/2018 COMPARISON: 02/20/2018 INDICATION: Respiratory distress TECHNIQUE: Single frontal view of the chest is obtained. FINDINGS: The heart size is normal. The pulmonary vasculature is normal. Mild infiltrate is at the left base likely atelectasis. Minimal atelectasis not excluded at the right base. Tracheostomy tube is in the midline. IMPRESSION: 1. Mild bibasilar atelectasis greater on the left.
[2018-02-21] MEDS: PANTOPRAZOLE 40 MG/10 ML VIAL IVP SCH (09:05)
[2018-02-21 09:06] LABS: Glucose,Whole Blood 128 mg/dL (75-99)
[2018-02-21] MEDS: ACETAMINOPHEN IV (For NPO) 1,000 MG in EMPTY BAG 1 BAG IVPB PRN (09:18)
[2018-02-21] MEDS ORDERED: ENALAPRILAT 1.25 MG/ML 1 ML VIAL IVP PRN (09:42)
[2018-02-21] MEDS: MORPHINE SULFATE 2 MG/ML SYRINGE IV PRN ×5 (09:52→22:52)
[2018-02-21] MEDS ORDERED: cloNIDine 0.2 MG/24HR PATCH TRANSDERM SCH (10:00)
[2018-02-21] MEDS: ENOXAPARIN 40 MG/0.4 ML SYRINGE SQ SCH (12:09)
[2018-02-21] MEDS: NICOTINE 21MG/24HR PATCH TRANSDERM SCH (12:10)
[2018-02-21 12:49] LABS: Glucose,Whole Blood 117 mg/dL (75-99)
--- NOTE | 2018-02-21 13:46 | P.CNPUL ---
History of Present Illness Consult date: 02/21/18 Reason for consult: dyspnea History of present illness: This is a 62-year-old male patient was given reason diagnosed having a bulky T2 laryngeal squamous cell carcinoma. The patient was referred to radiation oncology, Dr. Kong, and the patient has been completing palliative radiation therapy to his laryngeal cancer. During this time the patient was getting progressively more short of breath. He apparently had contacted Dr. Holm. The patient was developing some airway compromise and worsening stridor. He was evaluated on outpatient basis and he was offered tracheostomy tube insertion but the patient refused. Subsequently, his condition got worse and the patient got admitted yesterday to the hospital and a emergency tracheostomy tube insertion was done by ENT. This was done the operating room and following that the patient got moved to the intensive care unit. The patient currently has a #7 a tracheostomy tube and the tube was secured in place and it was inserted without any complications. The patient is doing well. The patient is hemodynamically stable. The patient is awake and alert. No hemoptysis. Note that he was also having difficulty with swallowing prior to this tracheostomy tube insertion and a swallow needs to be reevaluated the later stage. He is currently nothing by mouth. He is a chronic smoker. He also has history of COPD. He has chronic issues with back pain and currently receiving morphine on as needed basis for pain control. No chest pain. No nausea. No vomiting. No aspiration. No other complaints otherwise. Hemodynamically stable. Family is at the bedside. He is known to have coronary artery disease and he has undergone previous bypass surgery. He is also undergone previous cardiac catheterization and stenting. He has a chronic smoker and he suffers some peripheral vascular disease and chronic back pain and he has received her sinuses back and has undergone various procedures regarding chronic back pain through pain management. His current white cell count is at 13.0. He was stable at 13.0. Rest of the blood work and electrodes are all within normal limits. Review of Systems Constitutional Reports anorexia, Reports poor appetite - EENT Ears, nose, mouth and throat: Reports bleeding gums, Reports swelling in throat , Reports sore throat and the patient has received radiation therapy to his laryngeal cancer. - Cardiovascular Denies chest pain - Respiratory Reports congestion and some exertional dyspnea and a congested cough. - Gastrointestinal Denies abdominal pain, no nausea or vomiting and the patient has dysphagia - Genitourinary Denies discharge - Musculoskeletal Denies arm numbness/tingling - Integumentary Denies brittle nails. No open wounds or sores or ulceration - Neurological Denies balance difficulties - Psychiatric Reports change in appetite - Endocrine Reports excessive thirst - Hematologic/Lymphatic Denies easy bleeding - Allergic/Immunologic Denies gluten intolerance Past Medical History Past Medical History: Cancer, GERD/Reflux, Hearing Disorder / Deafness, Myocardial Infarction ([place]) Additional Past Medical History / Comment(s): Coronary artery disease based bypass surgery, laryngeal cancer T2 squamous cell lesion of the larynx and diagnosis established on 10/24/2017 and the tumor was moderately differentiated squamous cell carcinoma, previous myocardial infarction, chronic back pain, hard of hearing involving the right ear, obesity, chronic smoker, chronic back pain, acid reflux Last Myocardial Infarction Date:: 1998 History of Any Multi-Drug Resistant Organisms: None Reported Past Surgical History: Coronary Bypass/CABG, Heart Catheterization With Stent, Orthopedic Surgery Additional Past Surgical History / Comment(s): COLONOSCOPY. RT KNEE SURG. LT ROTATOR CUFF SURG. Pain Procedures. Past Anesthesia/Blood Transfusion Reactions: No Reported Reaction Date of Last Stent Placement:: 1998 Smoking Status: Current every day smoker - Past Family History Mother Family Medical History: No Reported History Medications and Allergies Home Medications Medication Instructions Recorded Confirmed Type Omeprazole [PriLOSEC] 20 mg PO DAILY PRN 12/19/15 02/20/18 History Ibuprofen [Motrin] 800 mg PO TID PRN #90 tab 10/22/17 02/20/18 Rx oxyCODONE HCL 20 mg PO Q8HR PRN #90 tab 10/22/17 02/20/18 Rx Allergies Allergy/AdvReac Type Severity Reaction Status Date / Time No Known Allergies Allergy Verified 02/20/18 21:14 Physical Exam Vitals: Vital Signs Temp Pulse Resp BP Pulse Ox 02/21/18 13:00 69 22 117/61 93 L 02/21/18 12:00 98.9 F 74 19 92/57 98 02/21/18 11:01 99.9 F H 87 22 96 02/21/18 10:00 100.1 F H 87 40 H 175/79 92 L 02/21/18 09:00 101 F H 81 22 174/81 94 L 02/21/18 08:00 81 23 163/81 95 02/21/18 07:00 79 22 160/84 95 02/21/18 06:30 79 16 192/73 96 02/21/18 06:00 77 23 187/72 96 02/21/18 05:30 74 21 180/73 96 02/21/18 05:00 67 20 179/83 97 02/21/18 04:45 99 02/21/18 04:30 64 21 179/87 97 02/21/18 04:00 97.2 F L 65 23 186/92 97 02/21/18 03:30 65 21 176/92 97 02/21/18 03:04 98 02/21/18 03:00 70 18 170/82 98 02/21/18 02:30 69 21 175/81 98 02/21/18 02:00 71 16 177/85 98 02/21/18 01:30 64 19 177/81 96 02/21/18 01:00 67 19 160/81 95 02/21/18 00:30 68 17 179/84 97 02/21/18 00:00 66 19 163/85 94 L 02/20/18 23:30 98.4 F 72 20 161/76 98 02/20/18 21:16 64 20 159/86 96 02/20/18 21:03 65 18 159/86 96 02/20/18 20:40 98.6 F 72 18 97 Intake and Output 02/20/18 02/21/18 02/21/18 22:59 06:59 14:59 Intake Total 600 190 630 Output Total 5 525 Balance 595 190 105 Intake: IV 600 190 630 Lactated Ringers 1,000 ml 140 380 @ 75 mls/hr IV .[id number] KELLY Rx#:[id number] Magnesium Sulfate-D5w Pmx 200 1 gm In Dextrose/Water 1 100ml.bag @ 100 mls/hr IVPB Q1H KELLY Rx#: [id number] ceFAZolin 1,000 mg In 50 50 Dextrose/Water 1 50ml.bag @ 100 mls/hr IVPB Q8HR KELLY Rx#:[id number] Output: Urine 525 Estimated Blood Loss 5 Other: Voiding Method Urinal # Voids 1 Weight 102.104 kg 102.8 kg Gen. appearance, comfortable likely distress. Head exam was generally normal. There was no scleral icterus or corneal arcus. Mucous membranes were moist. Neck is supple and the patient is a Bivona tracheostomy tube #[address] No neck masses. No adenopathy. No neck stiffness. No goiter. Lungs were clear to auscultation and percussion, and with normal diaphragmatic excursion. No wheezes or rales were noted. Cardiac exam revealed the PMI to be normally situated and sized. The rhythm was regular and no extrasystoles were noted during several minutes of auscultation. The first and second heart sounds were normal and physiologic splitting of the second heart sound was noted. There were no murmurs, rubs, clicks, or gallops. Abdominal exam revealed normal bowel sounds. The abdomen was soft, non-tender, and without masses, organomegaly, or appreciable enlargement of the abdominal aorta. Examination of the extremities revealed easily palpable radial, femoral and pedal pulses. There was no cyanosis, clubbing or edema. Examination of the skin revealed no evidence of significant rashes, suspicious appearing nevi or other concerning lesions. Neurologically awake and alert and there is no focal neurological deficits. Results - Laboratory Findings CBC and BMP: 02/21/18 05:05 02/21/18 05:05 PT/INR, D-dimer PT 9.5 sec (9.0-12.0) 02/20/18 20:55 INR 1.0 (<1.2) 02/20/18 20:55 Abnormal lab findings: Abnormal Labs 02/20/18 02/20/18 02/20/18 20:55 23:07 23:29 WBC RBC 4.20 L Neutrophils # 8.2 H Glucose 104 H POC Glucose (mg/dL) 131 H AST Total Protein 02/20/18 02/21/18 02/21/18 23:29 05:05 05:05 WBC 13.0 H RBC Neutrophils # 11.0 H Glucose 129 H 124 H POC Glucose (mg/dL) AST 16 L Total Protein 6.0 L 02/21/18 02/21/18 09:02 12:47 WBC RBC Neutrophils # Glucose POC Glucose (mg/dL) 128 H 117 H AST Total Protein - Diagnostic Findings Chest x-ray: image reviewed Assessment and Plan Plan: Assessment 1 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 The patient underwent an emergent tracheostomy tube insertion and the patient is postop day #1. Follow- up biopsies were also done and the results are still pending for now 3 shortness of breath, secondary to above, relieved post insertion of tracheostomy tube. 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 The patient is currently on IV Protonix. Plan It was noted that the patient is doing well for now. Continue trach care. The patient is currently on 35% trach collar with a pulse ox of 93%. Chest x-ray shows some limited atelectatic changes and left lung base. Otherwise there is adequate expansion of both lungs and there is no evidence of pneumonia or aspiration. The patient will be monitored. The patient will be offered clonidine patch for blood pressure control and Vasotec were reviewed 2.5 mg every 6 hours when necessary for systolic blood pressure below 160. Morphine for pain control knowing that the patient has chronic back pain. Swallow needs to be evaluated later stage and this will be done within next 24 hours to assess the patient is able to swallow and risk for aspiration. PEG tube insertion may be considered if the patient is found to be high risk for aspiration. Continue IV Protonix. We'll continue to follow.
[2018-02-21 18:55] LABS: Glucose,Whole Blood 132 mg/dL (75-99)
[2018-02-21 20:06] LABS: Hemoglobin A1C 5.7 % (4.0-6.0)
--- NOTE | 2018-02-21 21:08 | P.HPIM ---
History of Present Illness pt could not provide full information and it was taken from pt , records and staff this is pleasant 62 yo M with pmh of laryngeal cancer receiving radiotherapy , who presents with progressive dyspnea over several days. emergent tracheostomy tube was placed emergently by ENT team . pt refused treacheostomy tube in the outpt before . after procedure pt was transferred to ICU, pt was sitting in chair with treacheostomy is in place and oxygen therapy is porvided through it . pt could not talk to me although he was fully awake and follow commands appropriartly secondary to treacheostomy. pt did not show distress, he denies chest pain or pain anywhere else. his sugar is good controlled in the range 117- 130s. medications: ([place] 5-325),(Vasotec) , (Lovenox) ,RL at 75 ml/h, tylenol, morphine, motrin, (Protonix) Review of Systems CONSTITUTIONAL: negative. EYES: negative. EARS, NOSE, MOUTH, THROAT and FACE: negative. RESPIRATORY: Negative. CARDIOVASCULAR: Negative. GASTROINTESTINAL: Negative. GENITOURINARY: Negative. INTEGUMENT/BREAST: Negative. HEMATOLOGIC/LYMPHATIC: Negative. MUSCULOSKELETAL: Negative. NEUROLOGICAL: Negative. BEHAVIORAL/PSYCH: Negative. ENDOCRINE: Negative . Review of Systems REVIEW OF SYSTEMS: CONSTITUTIONAL: No fever, no malaise, no fatigue. HEENT: No recent visual problems or hearing problems. Denied any sore throat. CARDIOVASCULAR: No orthopnea, PND, no palpitations, no syncope. PULMONARY: No shortness of breath, no cough, no hemoptysis. GASTROINTESTINAL: No diarrhea, no nausea, no vomiting, no abdominal pain. Normoactive bowel sounds. NEUROLOGICAL: No headaches, no weakness, no numbness. HEMATOLOGICAL: Denies any bleeding or petechiae. GENITOURINARY: Denies any burning micturition, frequency, or urgency. MUSCULOSKELETAL/RHEUMATOLOGICAL: Denies any joint pain, swelling, or any muscle pain. ENDOCRINE: Denies any polyuria or polydipsia. Past Medical History Past Medical History: Cancer, GERD/Reflux, Hearing Disorder / Deafness, Myocardial Infarction (DE) Additional Past Medical History / Comment(s): recent dx of CA-rt vocal cord mass -starting radiation November 2017,HAS ALWAYS HAD A RASPY VOICE, BUT SINCE JUNE HE HAS BEEN VERY HOARSE (HAVING VOCAL CORD BX IN OCTOBER). BACK PAIN THAT RADIATES TO BOTH LEGS. COEUR D'ALENE RT EAR. Last Myocardial Infarction Date:: 1998 History of Any Multi-Drug Resistant Organisms: None Reported Past Surgical History: Coronary Bypass/CABG, Heart Catheterization With Stent, Orthopedic Surgery Additional Past Surgical History / Comment(s): COLONOSCOPY. RT KNEE SURG. LT ROTATOR CUFF SURG. Pain Procedures. Past Anesthesia/Blood Transfusion Reactions: No Reported Reaction Date of Last Stent Placement:: 1998 Past Psychological History: No Psychological Hx Reported Smoking Status: Current every day smoker Past Alcohol Use History: None Reported Past Drug Use History: None Reported - Past Family History Mother Family Medical History: No Reported History Medications and Allergies Home Medications Medication Instructions Recorded Confirmed Type Omeprazole [PriLOSEC] 20 mg PO DAILY PRN 12/19/15 02/20/18 History Ibuprofen [Motrin] 800 mg PO TID PRN #90 tab 10/22/17 02/20/18 Rx oxyCODONE HCL 20 mg PO Q8HR PRN #90 tab 10/22/17 02/20/18 Rx Allergies Allergy/AdvReac Type Severity Reaction Status Date / Time No Known Allergies Allergy Verified 02/20/18 21:14 Physical Exam Vitals: Vital Signs Temp Pulse Resp BP Pulse Ox 02/21/18 20:00 99.3 F 82 21 133/75 94 L 02/21/18 19:00 83 25 H 155/79 92 L 02/21/18 18:00 78 29 H 143/70 92 L 02/21/18 17:00 73 21 119/67 95 02/21/18 16:00 98.7 F 79 23 150/73 90 L 02/21/18 15:00 72 24 146/69 94 L 02/21/18 14:00 67 19 116/64 93 L 02/21/18 13:00 69 22 117/61 93 L 02/21/18 12:00 98.9 F 74 19 92/57 98 02/21/18 11:01 99.9 F H 87 22 96 02/21/18 10:00 100.1 F H 87 40 H 175/79 92 L 02/21/18 09:00 101 F H 81 22 174/81 94 L 02/21/18 08:00 81 23 163/81 95 02/21/18 07:00 79 22 160/84 95 02/21/18 06:30 79 16 192/73 96 09/14/18 06:00 77 23 187/72 96 02/21/18 05:30 74 21 180/73 96 02/21/18 05:00 67 20 179/83 97 02/21/18 04:45 99 02/21/18 04:30 64 21 179/87 97 02/21/18 04:00 97.2 F L 65 23 186/92 97 02/21/18 03:30 65 21 176/92 97 02/21/18 03:04 98 02/21/18 03:00 70 18 170/82 98 02/21/18 02:30 69 21 175/81 98 02/21/18 02:00 71 16 177/85 98 02/21/18 01:30 64 19 177/81 96 02/21/18 01:00 67 19 160/81 95 02/21/18 00:30 68 17 179/84 97 02/21/18 00:00 66 19 163/85 94 L 02/20/18 23:30 98.4 F 72 20 161/76 98 02/20/18 21:16 64 20 159/86 96 02/20/18 21:03 65 18 159/86 96 Intake and Output 02/21/18 02/21/18 02/21/18 06:59 14:59 22:59 Intake Total 190 705 375 Output Total 525 800 Balance 190 180 -425 Intake: IV 190 705 375 Lactated Ringers 1,000 ml 140 455 375 @ 75 mls/hr IV .[id number] [facility] Rx#:[id number] Magnesium Sulfate-D5w Pmx 200 1 gm In Dextrose/Water 1 100ml.bag @ 100 mls/hr IVPB Q1H [facility] Rx#: [id number] ceFAZolin 1,000 mg In 50 50 Dextrose/Water 1 50ml.bag @ 100 mls/hr IVPB Q8HR [facility] Rx#:[id number] Output: Urine 525 800 Other: Voiding Method Urinal # Voids 1 1 Weight 102.8 kg Physical exam GENERAL: The patient is alert and oriented x3, not in any acute distress. Well developed, well nourished. HEENT: Pupils are round and equally reacting to light. EOMI. No scleral icterus. No conjunctival pallor. Normocephalic, atraumatic. No pharyngeal erythema. No thyromegaly. CARDIOVASCULAR: S1 and S2 present. No murmurs, rubs, or gallops. -PULMONARY: Chest is clear to auscultation, no wheezing or crackles. tracheostomy is in place ABDOMEN: Soft, nontender, nondistended, normoactive bowel sounds. No palpable organomegaly. MUSCULOSKELETAL: No joint swelling or deformity. EXTREMITIES: No cyanosis, clubbing, or pedal edema. NEUROLOGICAL: Gross neurological examination did not reveal any focal deficits. SKIN: No rashes. Results CBC & Chem 7: 02/21/18 05:05 02/21/18 05:05 Labs: Abnormal Lab Results - Last 24 Hours (Table) 02/20/18 02/20/18 02/20/18 Range/Units 20:55 23:07 23:29 WBC (3.8-10.6) k/uL RBC 4.20 L (4.30-5.90) m/uL Neutrophils # 8.2 H (1.3-7.7) k/uL Glucose 104 H (74-99) mg/dL POC Glucose (mg/dL) 131 H (75-99) mg/dL AST (17-59) U/L Total Protein (6.3-8.2) g/dL 02/20/18 02/21/18 02/21/18 Range/Units 23:29 05:05 05:05 WBC 13.0 H (3.8-10.6) k/uL RBC (4.30-5.90) m/uL Neutrophils # 11.0 H (1.3-7.7) k/uL Glucose 129 H 124 H (74-99) mg/dL POC Glucose (mg/dL) (75-99) mg/dL AST 16 L (17-59) U/L Total Protein 6.0 L (6.3-8.2) g/dL 02/21/18 02/21/18 02/21/18 Range/Units 09:02 12:47 18:52 WBC (3.8-10.6) k/uL RBC (4.30-5.90) m/uL Neutrophils # (1.3-7.7) k/uL Glucose (74-99) mg/dL POC Glucose (mg/dL) 128 H 117 H 132 H (75-99) mg/dL AST (17-59) U/L Total Protein (6.3-8.2) g/dL Thrombosis Risk Factor Assmnt - Choose All That Apply Each Factor Represents 1 point: Age 41-60 years, Obesity (BMI >25) Each Risk Factor Represents 2 Points: Malignancy Thrombosis Risk Factor Assessment Total Risk Factor Score: 4 Thrombosis Risk Factor Assessment Level: Moderate Risk Assessment and Plan Assessment: laryngeal cancer receiving radiotherapy . s/p radiotherapy stridor, needed emergent tracheostomy mild leukocytosis , mostly reactive Plan: continue with the same treatment , continue with symptomatic treatment , resume home medication , monitor lytes and vitals including glucose , c/w iv fluids as ringer lactate, cardiology consult is appreciated. critical care input and management is appreciated . c/w supportive care. pain management . GI and DVT prophylaxis , further recommendation based upon pt clinical course and progress DVT prophylaxis subcutaneous lovenox GI prophylaxis pepcid
[2018-02-22] MEDS: ceFAZolin 1,000 MG in DEXTROSE/WATER 1 50ML.BAG IVPB SCH ×2 (01:08→13:33)
[2018-02-22 01:11] LABS: Glucose,Whole Blood 121 mg/dL (75-99)
[2018-02-22] MEDS: LACTATED RINGERS 1,000 ML IV SCH ×2 (01:11→16:12)
[2018-02-22] MEDS: MORPHINE SULFATE 2 MG/ML SYRINGE IV PRN ×4 (01:59→14:37)
[2018-02-22 05:49] LABS: Basophils % (A) 0 %; Eosinophils # (A) 0.1 k/uL (0-0.7); Eosinophils % (A) 0 %; HCT 40.5 % (39.0-53.0); HGB 12.8 gm/dL (13.0-17.5); Lymphocytes # (A) 1.7 k/uL (1.0-4.8); Lymphocytes % (A) 13 %; MCH 29.9 pg (25.0-35.0); MCHC 31.6 g/dL (31.0-37.0); MCV 94.8 fL (80.0-100.0); Mean Platelet Volume 6.2; Monocytes # (A) 0.7 k/uL (0-1.0); Monocytes % (A) 6 %; Neutrophils # (A) 9.7 k/uL (1.3-7.7); Neutrophils % (A) 79 %; Platelet Count 299 k/uL (150-450); RBC 4.27 m/uL (4.30-5.90); RDW 13.7 % (11.5-15.5); WBC 12.4 k/uL (3.8-10.6)
[2018-02-22 06:00] LABS: Anion Gap 7 mmol/L; Blood Urea Nitrogen 14 mg/dL (9-20); Calcium 9.3 mg/dL (8.4-10.2); Carbon Dioxide 27 mmol/L (22-30); Chloride 102 mmol/L (98-107); Glucose 113 mg/dL (74-99); Magnesium 2.2 mg/dL (1.6-2.3); Phosphorus 3.3 mg/dL (2.5-4.5); Potassium 4.3 mmol/L (3.5-5.1); Sodium 136 mmol/L (137-145)
[2018-02-22 06:29] LABS: Glucose,Whole Blood 120 mg/dL (75-99)
--- NOTE | 2018-02-22 06:52 | XR ---
EXAMINATION TYPE: XR chest 1V DATE OF EXAM: 02/22/2018 HISTORY: resp distress. REFERENCE: Previous study dated 02/21/2018. FINDINGS: There is a tracheostomy tube in place. Its tip overlies the tracheal air column in this sin gle frontal projection. There is bibasilar airspace disease, worse on the left than the right. There is a left-sided pleural effusion. The heart is mildly enlarged. IMPRESSION: 1. CONTINUING BIBASILAR AIRSPACE DISEASE. 2. LEFT-SIDED EFFUSION.
--- NOTE | 2018-02-22 08:55 | P.PN ---
Subjective Progress Note Date: 02/22/18 This is a 62-year-old male patient was given reason diagnosed having a bulky T2 laryngeal squamous cell carcinoma. The patient was referred to radiation oncology, Dr. Kong, and the patient has been completing palliative radiation therapy to his laryngeal cancer. During this time the patient was getting progressively more short of breath. He apparently had contacted Dr. Holm. The patient was developing some airway compromise and worsening stridor. He was evaluated on outpatient basis and he was offered tracheostomy tube insertion but the patient refused. Subsequently, his condition got worse and the patient got admitted yesterday to the hospital and a emergency tracheostomy tube insertion was done by ENT. This was done the operating room and following that the patient got moved to the intensive care unit. The patient currently has a #7 a tracheostomy tube and the tube was secured in place and it was inserted without any complications. The patient is doing well. The patient is hemodynamically stable. The patient is awake and alert. No hemoptysis. Note that he was also having difficulty with swallowing prior to this tracheostomy tube insertion and a swallow needs to be reevaluated the later stage. He is currently nothing by mouth. He is a chronic smoker. He also has history of COPD. He has chronic issues with back pain and currently receiving morphine on as needed basis for pain control. No chest pain. No nausea. No vomiting. No aspiration. No other complaints otherwise. Hemodynamically stable. Family is at the bedside. He is known to have coronary artery disease and he has undergone previous bypass surgery. He is also undergone previous cardiac catheterization and stenting. He has a chronic smoker and he suffers some peripheral vascular disease and chronic back pain and he has received her sinuses back and has undergone various procedures regarding chronic back pain through pain management. His current white cell count is at 13.0. He was stable at 13.0. Rest of the blood work and electrodes are all within normal limits. On 02/22/2018, the patient is feeling better. The patient is awake and alert. The patient is not having any significant respiratory distress. The patient has a Bivona tracheostomy tube in place. The patient also has a trach collar at 40%. Pulse ox in the low 90s. No significant rest or secretions. No chest pain. A bedside swallow evaluation was done and the patient was able to swallow applesauce without any major difficulties. No pressures under good control. Hemoglobin stable at 12.8. No other electrodes imbalance. No other significant events overnight. Objective - Vital Signs Vital signs: Vital Signs Temp 99 F 02/22/18 00:00 Pulse 77 02/22/18 07:00 Resp 20 02/22/18 07:00 BP 143/82 02/22/18 07:00 Pulse Ox 93 L 02/22/18 07:00 Intake & Output 02/21/18 02/22/18 02/22/18 18:59 06:59 18:59 Intake Total 1080 825 75 Output Total 1325 300 Balance -245 525 75 Weight 100.8 kg Intake: IV 1080 825 75 Lactated Ringers 1,000 ml 830 825 75 @ 75 mls/hr IV .[id number] [facility] Rx#:[id number] Magnesium Sulfate-D5w Pmx 200 1 gm In Dextrose/Water 1 100ml.bag @ 100 mls/hr IVPB Q1H [facility] Rx#: [id number] ceFAZolin 1,000 mg In 50 Dextrose/Water 1 50ml.bag @ 100 mls/hr IVPB Q8HR [facility] Rx#:[id number] Oral 0 Output: Urine 1325 300 Other: Voiding Method Urinal # Voids 1 - Exam Gen. appearance, comfortable the patient is not in acute distress Head exam was generally normal. There was no scleral icterus or corneal arcus. Mucous membranes were moist. Neck is supple and the patient is a Bivona tracheostomy tube #[address] No neck masses. No adenopathy. No neck stiffness. No goiter. Lungs were clear to auscultation and percussion, and with normal diaphragmatic excursion. No wheezes or rales were noted. Cardiac exam revealed the PMI to be normally situated and sized. The rhythm was regular and no extrasystoles were noted during several minutes of auscultation. The first and second heart sounds were normal and physiologic splitting of the second heart sound was noted. There were no murmurs, rubs, clicks, or gallops. Abdominal exam revealed normal bowel sounds. The abdomen was soft, non-tender, and without masses, organomegaly, or appreciable enlargement of the abdominal aorta. Examination of the extremities revealed easily palpable radial, femoral and pedal pulses. There was no cyanosis, clubbing or edema. Examination of the skin revealed no evidence of significant rashes, suspicious appearing nevi or other concerning lesions. Neurologically awake and alert and there is no focal neurological deficits. - Labs CBC & Chem 7: 02/22/18 05:23 02/22/18 05:23 Labs: Abnormal Lab Results - Last 24 Hours (Table) 02/21/18 02/21/18 02/21/18 Range/Units 09:02 12:47 18:52 WBC (3.8-10.6) k/uL RBC (4.30-5.90) m/uL Hgb (13.0-17.5) gm/dL Neutrophils # (1.3-7.7) k/uL Sodium (137-145) mmol/L Glucose (74-99) mg/dL POC Glucose (mg/dL) 128 H 117 H 132 H (75-99) mg/dL 02/22/18 02/22/18 02/22/18 Range/Units 01:10 05:23 05:23 WBC 12.4 H (3.8-10.6) k/uL RBC 4.27 L (4.30-5.90) m/uL Hgb 12.8 L (13.0-17.5) gm/dL Neutrophils # 9.7 H (1.3-7.7) k/uL Sodium 136 L (137-145) mmol/L Glucose 113 H (74-99) mg/dL POC Glucose (mg/dL) 121 H (75-99) mg/dL 02/22/18 Range/Units 06:28 WBC (3.8-10.6) k/uL RBC (4.30-5.90) m/uL Hgb (13.0-17.5) gm/dL Neutrophils # (1.3-7.7) k/uL Sodium (137-145) mmol/L Glucose (74-99) mg/dL POC Glucose (mg/dL) 120 H (75-99) mg/dL Assessment and Plan Plan: Assessment 1 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 The patient underwent an emergent tracheostomy tube insertion and the patient is postop day #2. Follow- up biopsies were also done and the results are still pending for now 3 shortness of breath, secondary to above, relieved post insertion of tracheostomy tube. The patient is resting comfortably in bed and shortness of breath is essentially recovered and resolved. 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 The patient is currently on IV Protonix. Plan We will offer this patient pureed Diet and will advance the diet as tolerated. Keep trach collar at 40%. Trach care. Pain control with [place]. Clonidine patch for blood pressure control. May subsequently switched to Protonix to oral. We'll continue to follow. The patient can be transferred to a medical floor.
[2018-02-22] MEDS: PANTOPRAZOLE 40 MG/10 ML VIAL IVP SCH (09:17)
[2018-02-22] MEDS: ENOXAPARIN 40 MG/0.4 ML SYRINGE SQ SCH (09:18)
[2018-02-22] MEDS: NICOTINE 21MG/24HR PATCH TRANSDERM SCH (09:18)
[2018-02-22] MEDS: ACETAMINOPHEN IV (For NPO) 1,000 MG in EMPTY BAG 1 BAG IVPB PRN (09:54)
--- NOTE | 2018-02-22 11:19 | P.PN ---
Subjective Progress Note Date: 02/22/18 Principal diagnosis: Status post tracheostomy with laryngeal biopsy We are still awaiting the biopsy report. Patient is doing relatively well. He was placed on either moisture on his trach collar and this helped bring up some of the secretions. The secretions appear to be white. His trach site is otherwise doing well. 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 This patientmay not be able to be discharged by Saturday to see this surgeon as an outpatient. Otherwise the patient is in good spirits and is doing well. Objective - Vital Signs Vital signs: Vital Signs Temp 99 F 02/22/18 00:00 Pulse 77 02/22/18 07:00 Resp 20 02/22/18 07:00 BP 143/82 02/22/18 07:00 Pulse Ox 93 L 02/22/18 07:00 Intake & Output 02/21/18 02/22/18 02/22/18 18:59 06:59 18:59 Intake Total 1080 825 75 Output Total 1325 300 Balance -245 525 75 Weight 100.8 kg Intake: IV 1080 825 75 Lactated Ringers 1,000 ml 830 825 75 @ 75 mls/hr IV .[id number] [facility] Rx#:[id number] Magnesium Sulfate-D5w Pmx 200 1 gm In Dextrose/Water 1 100ml.bag @ 100 mls/hr IVPB Q1H [facility] Rx#: [id number] ceFAZolin 1,000 mg In 50 Dextrose/Water 1 50ml.bag @ 100 mls/hr IVPB Q8HR [facility] Rx#:[id number] Oral 0 Output: Urine 1325 300 Other: Voiding Method Urinal # Voids 1 - Constitutional General appearance: Present: average body habitus - EENT Eyes: Present: PERRLA ENT: Present: hearing grossly normal. Absent: thrush - Neck Neck: Absent: lymphadenopathy - Integumentary Integumentary: Absent: cellulitis - Labs CBC & Chem 7: 02/22/18 05:23 02/22/18 05:23 Labs: Abnormal Lab Results - Last 24 Hours (Table) 02/21/18 02/21/18 02/22/18 Range/Units 12:47 18:52 01:10 WBC (3.8-10.6) k/uL RBC (4.30-5.90) m/uL Hgb (13.0-17.5) gm/dL Neutrophils # (1.3-7.7) k/uL Sodium (137-145) mmol/L Glucose (74-99) mg/dL POC Glucose (mg/dL) 117 H 132 H 121 H (75-99) mg/dL 02/22/18 02/22/18 02/22/18 Range/Units 05:23 05:23 06:28 WBC 12.4 H (3.8-10.6) k/uL RBC 4.27 L (4.30-5.90) m/uL Hgb 12.8 L (13.0-17.5) gm/dL Neutrophils # 9.7 H (1.3-7.7) k/uL Sodium 136 L (137-145) mmol/L Glucose 113 H (74-99) mg/dL POC Glucose (mg/dL) 120 H (75-99) mg/dL Assessment and Plan (1) Laryngeal edema determined by laryngoscopy Current Visit: Yes Status: Acute Code(s): J38.4 - EDEMA OF LARYNX SNOMED Code(s): 91553124 Plan: 1. We're awaiting the results of the patient's pathology report. 2. Patient has an outpatient appointment on Saturday with her head and neck oncologic surgeon in light of his findings post radiation. The patient most likely will not be discharged by Saturday and that appointment may need to be canceled and rescheduled. 3. instructional support services director for discharge planning and trach care is an important part of this patient's treatment at this point. I anticipate the patient will need to be sent to an extended care facility post discharge. He lives alone. Time with Patient: Greater than 30
[2018-02-22 12:05] LABS: Glucose,Whole Blood 116 mg/dL (75-99)
[2018-02-22] MEDS: HYDROcodone/APAP 5-325MG 1 EACH TAB PO PRN ×2 (14:37→18:51)
--- NOTE | 2018-02-22 17:29 | P.PN ---
Subjective pt could not provide full information and it was taken from pt , records and staff this is pleasant 62 yo M with pmh of laryngeal cancer receiving radiotherapy , who presents with progressive dyspnea over several days. emergent tracheostomy tube was placed emergently by ENT team . pt refused treacheostomy tube in the outpt before . after procedure pt was transferred to ICU, pt was sitting in chair with treacheostomy is in place and oxygen therapy is porvided through it . pt could not talk to me although he was fully awake and follow commands appropriartly secondary to treacheostomy. pt did not show distress, he denies chest pain or pain anywhere else. his sugar is good controlled in the range 117- 130s. 90 1518 Patient is lying in bed comfortable distress. His breathing quietly through his tracheostomy tube. Tracheostomy is in place. Vitas looks stable and his oxygen saturation is 94% . This is an oxygen therapy with FiO2 40% some vital signs stable, patient spiked fever yesterday at 200.1. However he has no fever since yesterday while off antibiotics. However patient still does have leukocytosis 12-13 K, we will start ceftriaxone Objective - Vital Signs Vital signs: Vital Signs Temp 98.2 F 02/22/18 16:43 Pulse 79 02/22/18 16:43 Resp 18 02/22/18 16:43 BP 119/71 02/22/18 16:43 Pulse Ox 94 L 02/22/18 16:43 Intake & Output 02/21/18 02/22/18 02/22/18 18:59 06:59 18:59 Intake Total 1053 532 0690 Output Total 1325 300 575 Balance -245 525 775 Weight 100.8 kg Intake: IV 1080 825 750 Lactated Ringers 1,000 ml 830 825 750 @ 75 mls/hr IV .[id number] [facility] Rx#:[id number] Magnesium Sulfate-D5w Pmx 200 1 gm In Dextrose/Water 1 100ml.bag @ 100 mls/hr IVPB Q1H [facility] Rx#: [id number] ceFAZolin 1,000 mg In 50 Dextrose/Water 1 50ml.bag @ 100 mls/hr IVPB Q8HR [facility] Rx#:[id number] Oral 0 600 Output: Urine 1325 300 575 Other: Voiding Method Urinal # Voids 1 1 - Exam GENERAL: The patient is alert and oriented x3, not in any acute distress. Well developed, well nourished. HEENT: Pupils are round and equally reacting to light. EOMI. No scleral icterus. No conjunctival pallor. Normocephalic, atraumatic. No pharyngeal erythema. No thyromegaly. CARDIOVASCULAR: S1 and S2 present. No murmurs, rubs, or gallops. PULMONARY: Chest is clear to auscultation, no wheezing or crackles. tracheostomy is in a Place ABDOMEN: Soft, nontender, nondistended, normoactive bowel sounds. No palpable organomegaly. MUSCULOSKELETAL: No joint swelling or deformity. EXTREMITIES: No cyanosis, clubbing, or pedal edema. NEUROLOGICAL: Gross neurological examination did not reveal any focal deficits. SKIN: No rashes. - Labs CBC & Chem 7: 02/22/18 05:23 02/22/18 05:23 Labs: Abnormal Lab Results - Last 24 Hours (Table) 02/21/18 02/22/18 02/22/18 Range/Units 18:52 01:10 05:23 WBC 12.4 H (3.8-10.6) k/uL RBC 4.27 L (4.30-5.90) m/uL Hgb 12.8 L (13.0-17.5) gm/dL Neutrophils # 9.7 H (1.3-7.7) k/uL Sodium (137-145) mmol/L Glucose (74-99) mg/dL POC Glucose (mg/dL) 132 H 121 H (75-99) mg/dL 02/22/18 02/22/18 02/22/18 Range/Units 05:23 06:28 12:03 WBC (3.8-10.6) k/uL RBC (4.30-5.90) m/uL Hgb (13.0-17.5) gm/dL Neutrophils # (1.3-7.7) k/uL Sodium 136 L (137-145) mmol/L Glucose 113 H (74-99) mg/dL POC Glucose (mg/dL) 120 H 116 H (75-99) mg/dL Assessment and Plan Assessment: laryngeal cancer receiving radiotherapy . s/p radiotherapy stridor, needed emergent tracheostomy Possible infection of the tracheostomy site, with leukocytosis and fever Plan: continue with the same treatment , continue with symptomatic treatment , resume home medication , monitor lytes and vitals including glucose , c/w iv fluids as ringer lactate, cardiology consult is appreciated. critical care/pulmonary team input and management is appreciated . c/w supportive care. pain management . Start ceftriaxone. Follow-up vitals and WBC GI and DVT prophylaxis , further recommendation based upon pt clinical course and progress DVT prophylaxis subcutaneous lovenox GI prophylaxis pepcid Prognosis is guarded
[2018-02-23] MEDS: HYDROcodone/APAP 5-325MG 1 EACH TAB PO PRN ×4 (00:23→18:19)
[2018-02-23] MEDS: LACTATED RINGERS 1,000 ML IV SCH ×2 (06:06→17:29)
[2018-02-23 07:33] LABS: Basophils % (A) 0 %; Eosinophils # (A) 0.1 k/uL (0-0.7); Eosinophils % (A) 1 %; HCT 38.8 % (39.0-53.0); HGB 12.5 gm/dL (13.0-17.5); Lymphocytes # (A) 1.3 k/uL (1.0-4.8); Lymphocytes % (A) 13 %; MCHC 32.3 g/dL (31.0-37.0); MCV 92.9 fL (80.0-100.0); Mean Platelet Volume 6.6; Monocytes # (A) 0.6 k/uL (0-1.0); Monocytes % (A) 6 %; Neutrophils # (A) 7.8 k/uL (1.3-7.7); Neutrophils % (A) 78 %; Platelet Count 278 k/uL (150-450); RBC 4.17 m/uL (4.30-5.90); RDW 13.5 % (11.5-15.5); WBC 10.1 k/uL (3.8-10.6)
[2018-02-23 07:42] LABS: Anion Gap 8 mmol/L; Blood Urea Nitrogen 14 mg/dL (9-20); Calcium 9.3 mg/dL (8.4-10.2); Carbon Dioxide 28 mmol/L (22-30); Chloride 104 mmol/L (98-107); Glucose 103 mg/dL (74-99); Magnesium 1.9 mg/dL (1.6-2.3); Phosphorus 3.1 mg/dL (2.5-4.5); Sodium 140 mmol/L (137-145)
[2018-02-23] MEDS: MORPHINE SULFATE 4 MG/ML SYRINGE IV PRN ×3 (09:05→21:11)
[2018-02-23] MEDS: ENOXAPARIN 40 MG/0.4 ML SYRINGE SQ SCH (09:58)
[2018-02-23] MEDS: PANTOPRAZOLE 40 MG/10 ML VIAL IVP SCH (09:58)
[2018-02-23] MEDS: NICOTINE 21MG/24HR PATCH TRANSDERM SCH (09:58)
--- NOTE | 2018-02-23 11:38 | P.PN ---
Subjective Progress Note Date: 02/23/18 This is a 62-year-old male patient was given reason diagnosed having a bulky T2 laryngeal squamous cell carcinoma. The patient was referred to radiation oncology, Dr. Kong, and the patient has been completing palliative radiation therapy to his laryngeal cancer. During this time the patient was getting progressively more short of breath. He apparently had contacted Dr. Holm. The patient was developing some airway compromise and worsening stridor. He was evaluated on outpatient basis and he was offered tracheostomy tube insertion but the patient refused. Subsequently, his condition got worse and the patient got admitted yesterday to the hospital and a emergency tracheostomy tube insertion was done by ENT. This was done the operating room and following that the patient got moved to the intensive care unit. The patient currently has a #7 a tracheostomy tube and the tube was secured in place and it was inserted without any complications. The patient is doing well. The patient is hemodynamically stable. The patient is awake and alert. No hemoptysis. Note that he was also having difficulty with swallowing prior to this tracheostomy tube insertion and a swallow needs to be reevaluated the later stage. He is currently nothing by mouth. He is a chronic smoker. He also has history of COPD. He has chronic issues with back pain and currently receiving morphine on as needed basis for pain control. No chest pain. No nausea. No vomiting. No aspiration. No other complaints otherwise. Hemodynamically stable. Family is at the bedside. He is known to have coronary artery disease and he has undergone previous bypass surgery. He is also undergone previous cardiac catheterization and stenting. He has a chronic smoker and he suffers some peripheral vascular disease and chronic back pain and he has received her sinuses back and has undergone various procedures regarding chronic back pain through pain management. His current white cell count is at 13.0. He was stable at 13.0. Rest of the blood work and electrodes are all within normal limits. On 02/22/2018, the patient is feeling better. The patient is awake and alert. The patient is not having any significant respiratory distress. The patient has a Bivona tracheostomy tube in place. The patient also has a trach collar at 40%. Pulse ox in the low 90s. No significant rest or secretions. No chest pain. A bedside swallow evaluation was done and the patient was able to swallow applesauce without any major difficulties. No pressures under good control. Hemoglobin stable at 12.8. No other electrodes imbalance. No other significant events overnight. On 02/23/2018 the patient is being seen in a follow-up. Doing well. No specific complaints. No significant secretions from his tracheostomy tube. He was able to tolerate soft diet without any major difficulties. No aspiration. Pain is under good control. No other significant events over the past 24 hours. Objective - Vital Signs Vital signs: Vital Signs Temp 98.4 F 02/23/18 05:00 Pulse 82 02/23/18 05:00 Resp 18 02/23/18 05:00 BP 137/85 02/23/18 10:47 Pulse Ox 94 L 02/23/18 10:47 Intake & Output 02/22/18 02/23/18 02/23/18 18:59 06:59 18:59 Intake Total 1350 2120 Output Total 575 Balance 775 2120 Intake: IV 750 450 Lactated Ringers 1,000 ml 750 450 @ 75 mls/hr IV .[id number] [facility] Rx#:[id number] Intake, IV Titration 50 Amount cefTRIAXone 1,000 mg In 50 Sodium Chloride 0.9% 50 ml @ 100 mls/hr IVPB Q12HR [facility] Rx#:[id number] Oral 600 1620 Output: Urine 575 Other: Voiding Method Urinal Urinal # Voids 1 2 - Exam Gen. appearance, comfortable the patient is not in acute distress Head exam was generally normal. There was no scleral icterus or corneal arcus. Mucous membranes were moist. Neck is supple and the patient is a Bivona tracheostomy tube #[address] No neck masses. No adenopathy. No neck stiffness. No goiter. Lungs were clear to auscultation and percussion, and with normal diaphragmatic excursion. No wheezes or rales were noted. Cardiac exam revealed the PMI to be normally situated and sized. The rhythm was regular and no extrasystoles were noted during several minutes of auscultation. The first and second heart sounds were normal and physiologic splitting of the second heart sound was noted. There were no murmurs, rubs, clicks, or gallops. Abdominal exam revealed normal bowel sounds. The abdomen was soft, non-tender, and without masses, organomegaly, or appreciable enlargement of the abdominal aorta. Examination of the extremities revealed easily palpable radial, femoral and pedal pulses. There was no cyanosis, clubbing or edema. Examination of the skin revealed no evidence of significant rashes, suspicious appearing nevi or other concerning lesions. Neurologically awake and alert and there is no focal neurological deficits. 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 The patient underwent an emergent tracheostomy tube insertion and the patient is postop day #3. Follow- up biopsies were also done and the results are still pending for now 3 shortness of breath, secondary to above, relieved post insertion of tracheostomy tube. The patient is resting comfortably in bed and shortness of breath is essentially recovered and resolved. 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 The patient is currently on IV Protonix. Plan Will advance diet as tolerated as the patient was able to tolerate soft diet. The patient is doing well. No respiratory difficulties. He is ambulating. He is actually patient is also improvement in his pulse oximetry 94% on room air. Continue bronchodilators. We'll continue to follow.
--- NOTE | 2018-02-23 14:22 | P.PN ---
Subjective pt could not provide full information and it was taken from pt , records and staff this is pleasant 62 yo M with pmh of laryngeal cancer receiving radiotherapy , who presents with progressive dyspnea over several days. emergent tracheostomy tube was placed emergently by ENT team . pt refused treacheostomy tube in the outpt before . after procedure pt was transferred to ICU, pt was sitting in chair with treacheostomy is in place and oxygen therapy is porvided through it . pt could not talk to me although he was fully awake and follow commands appropriartly secondary to treacheostomy. pt did not show distress, he denies chest pain or pain anywhere else. his sugar is good controlled in the range 117- 130s. 02/23/18 Patient is lying in bed comfortable distress. His breathing quietly through his tracheostomy tube. Tracheostomy is in place. Vitas looks stable and his oxygen saturation is 94% . This is an oxygen therapy with FiO2 40% some vital signs stable, patient spiked fever yesterday at 100.1. However he has no fever since while off antibiotics. his leukocytosis 12-13 K is back to normal , c/w ceftriaxone i have long discussion with pt and his son and family at bed side upon pt request, pt can not articulate and talk due to his tracheostomy . and update pt that biopsy is still pending Objective - Vital Signs Vital signs: Vital Signs Temp 98.4 F 02/23/18 05:00 Pulse 82 02/23/18 05:00 Resp 18 02/23/18 05:00 BP 137/85 02/23/18 10:47 Pulse Ox 94 L 02/23/18 10:47 Intake & Output 02/22/18 02/23/18 02/23/18 18:59 06:59 18:59 Intake Total 1350 2120 Output Total 575 Balance 775 2120 Intake: IV 750 450 Lactated Ringers 1,000 ml 750 450 @ 75 mls/hr IV .[id number] [facility] Rx#:[id number] Intake, IV Titration 50 Amount cefTRIAXone 1,000 mg In 50 Sodium Chloride 0.9% 50 ml @ 100 mls/hr IVPB Q12HR [facility] Rx#:[id number] Oral 600 1620 Output: Urine 575 Other: Voiding Method Urinal Urinal # Voids 1 2 - Exam GENERAL: The patient is alert and oriented x3, not in any acute distress. Well developed, well nourished. HEENT: Pupils are round and equally reacting to light. EOMI. No scleral icterus. No conjunctival pallor. Normocephalic, atraumatic. No pharyngeal erythema. No thyromegaly. CARDIOVASCULAR: S1 and S2 present. No murmurs, rubs, or gallops. PULMONARY: Chest is clear to auscultation, no wheezing or crackles. tracheostomy is in a Place ABDOMEN: Soft, nontender, nondistended, normoactive bowel sounds. No palpable organomegaly. MUSCULOSKELETAL: No joint swelling or deformity. EXTREMITIES: No cyanosis, clubbing, or pedal edema. NEUROLOGICAL: Gross neurological examination did not reveal any focal deficits. SKIN: No rashes. - Labs CBC & Chem 7: 02/23/18 07:14 02/23/18 07:14 Labs: Abnormal Lab Results - Last 24 Hours (Table) 02/23/18 02/23/18 Range/Units 07:14 07:14 RBC 4.17 L (4.30-5.90) m/uL Hgb 12.5 L (13.0-17.5) gm/dL Hct 38.8 L (39.0-53.0) % Neutrophils # 7.8 H (1.3-7.7) k/uL Creatinine 0.63 L (0.66-1.25) mg/dL Glucose 103 H (74-99) mg/dL Microbiology - Last 24 Hours (Table) 02/22/18 11:40 Gram Stain - Preliminary Sputum Sputum Culture - Preliminary Assessment and Plan Assessment: laryngeal cancer receiving radiotherapy . s/p radiotherapy stridor, needed emergent tracheostomy Possible infection of the tracheostomy site, with leukocytosis and fever Plan: continue with the same treatment , continue with symptomatic treatment , resume home medication , monitor lytes and vitals including glucose , c/w iv fluids as ringer lactate, cardiology consult is appreciated. critical care/pulmonary team input and management is appreciated . c/w supportive care. pain management . Start ceftriaxone. Follow-up vitals and WBC GI and DVT prophylaxis , further recommendation based upon pt clinical course and progress DVT prophylaxis subcutaneous lovenox GI prophylaxis pepcid Prognosis is guarded
[2018-02-24] MEDS: MORPHINE SULFATE 4 MG/ML SYRINGE IV PRN ×2 (01:24→09:13)
[2018-02-24] MEDS: LACTATED RINGERS 1,000 ML IV SCH ×2 (04:08→21:39)
[2018-02-24] MEDS: HYDROcodone/APAP 5-325MG 1 EACH TAB PO PRN (06:27)
[2018-02-24 09:03] LABS: Basophils % (A) 0 %; Eosinophils # (A) 0.2 k/uL (0-0.7); Eosinophils % (A) 2 %; HCT 39.1 % (39.0-53.0); HGB 12.4 gm/dL (13.0-17.5); Lymphocytes # (A) 1.4 k/uL (1.0-4.8); Lymphocytes % (A) 17 %; MCH 30.2 pg (25.0-35.0); MCHC 31.8 g/dL (31.0-37.0); MCV 94.7 fL (80.0-100.0); Mean Platelet Volume 6.6; Monocytes # (A) 0.6 k/uL (0-1.0); Monocytes % (A) 7 %; Neutrophils # (A) 5.9 k/uL (1.3-7.7); Neutrophils % (A) 72 %; Platelet Count 327 k/uL (150-450); RBC 4.13 m/uL (4.30-5.90); RDW 13.5 % (11.5-15.5); WBC 8.3 k/uL (3.8-10.6)
[2018-02-24] MEDS: NICOTINE 21MG/24HR PATCH TRANSDERM SCH (09:06)
[2018-02-24] MEDS: PANTOPRAZOLE 40 MG/10 ML VIAL IVP SCH (09:11)
[2018-02-24] MEDS: ENOXAPARIN 40 MG/0.4 ML SYRINGE SQ SCH (09:11)
[2018-02-24 09:20] LABS: Anion Gap 8 mmol/L; Blood Urea Nitrogen 12 mg/dL (9-20); Calcium 9.3 mg/dL (8.4-10.2); Carbon Dioxide 29 mmol/L (22-30); Chloride 103 mmol/L (98-107); Glucose 130 mg/dL (74-99); Magnesium 1.7 mg/dL (1.6-2.3); Phosphorus 4.2 mg/dL (2.5-4.5); Sodium 140 mmol/L (137-145)
--- NOTE | 2018-02-24 10:48 | P.PN ---
Subjective pt could not provide full information and it was taken from pt , records and staff this is pleasant 62 yo M with pmh of laryngeal cancer receiving radiotherapy , who presents with progressive dyspnea over several days. emergent tracheostomy tube was placed emergently by ENT team . pt refused treacheostomy tube in the outpt before . after procedure pt was transferred to ICU, pt was sitting in chair with treacheostomy is in place and oxygen therapy is porvided through it . pt could not talk to me although he was fully awake and follow commands appropriartly secondary to treacheostomy. pt did not show distress, he denies chest pain or pain anywhere else. his sugar is good controlled in the range 117- 130s. 02/23/18 Patient is lying in bed comfortable distress. His breathing quietly through his tracheostomy tube. Tracheostomy is in place. Vitas looks stable and his oxygen saturation is 94% . This is an oxygen therapy with FiO2 40% some vital signs stable, patient spiked fever yesterday at 100.1. However he has no fever since while off antibiotics. his leukocytosis 12-13 K is back to normal , c/w ceftriaxone i have long discussion with pt and his son and family at bed side upon pt request, pt can not articulate and talk due to his tracheostomy . and update pt that biopsy is still pending 02/24/2018 No change in the patient clinical situation. No dyspnea or chest pain. Tracheostomy tube is in place and working. Oxygen saturation is 92 onto 40%. No pain. Pathology report is still pending. Informed the patient and son at bedside. And they agreed that his appointment, no Center need to be rescheduled. Objective - Vital Signs Vital signs: Vital Signs Temp 97.5 F L 02/24/18 05:00 Pulse 73 02/24/18 05:00 Resp 17 02/24/18 05:00 BP 155/82 02/24/18 05:00 Pulse Ox 92 L 02/24/18 05:00 Intake & Output 02/23/18 02/24/18 02/24/18 18:59 06:59 18:59 Intake Total 650 780 Balance 650 780 Weight 100.8 kg Intake: Intake, IV Titration 650 Amount Lactated Ringers 1,000 ml 600 @ 75 mls/hr IV .[id number] [facility] Rx#:[id number] cefTRIAXone 1,000 mg In 50 Sodium Chloride 0.9% 50 ml @ 100 mls/hr IVPB Q12HR [facility] Rx#:[id number] Oral 780 Other: Voiding Method Urinal Urinal # Voids 2 - Exam GENERAL: The patient is alert and oriented x3, not in any acute distress. Well developed, well nourished. HEENT: Pupils are round and equally reacting to light. EOMI. No scleral icterus. No conjunctival pallor. Normocephalic, atraumatic. No pharyngeal erythema. No thyromegaly. CARDIOVASCULAR: S1 and S2 present. No murmurs, rubs, or gallops. PULMONARY: Chest is clear to auscultation, no wheezing or crackles. tracheostomy is in a Place ABDOMEN: Soft, nontender, nondistended, normoactive bowel sounds. No palpable organomegaly. MUSCULOSKELETAL: No joint swelling or deformity. EXTREMITIES: No cyanosis, clubbing, or pedal edema. NEUROLOGICAL: Gross neurological examination did not reveal any focal deficits. SKIN: No rashes. - Labs CBC & Chem 7: 02/24/18 08:00 02/24/18 08:00 Labs: Abnormal Lab Results - Last 24 Hours (Table) 02/24/18 02/24/18 Range/Units 08:00 08:00 RBC 4.13 L (4.30-5.90) m/uL Hgb 12.4 L (13.0-17.5) gm/dL Creatinine 0.63 L (0.66-1.25) mg/dL Glucose 130 H (74-99) mg/dL Microbiology - Last 24 Hours (Table) 02/22/18 11:40 Gram Stain - Final Sputum Sputum Culture - Final Assessment and Plan Assessment: laryngeal cancer receiving radiotherapy . s/p radiotherapy stridor, needed emergent tracheostomy Possible infection of the tracheostomy site, with leukocytosis and fever Plan: continue with the same treatment , continue with symptomatic treatment , resume home medication , monitor lytes and vitals including glucose , c/w iv fluids as ringer lactate, cardiology consult is appreciated. critical care/pulmonary team input and management is appreciated . c/w supportive care. pain management . Start ceftriaxone. Follow-up vitals and WBC GI and DVT prophylaxis , further recommendation based upon pt clinical course and progress DVT prophylaxis subcutaneous lovenox GI prophylaxis pepcid Prognosis is guarded
--- NOTE | 2018-02-24 12:20 | P.PN ---
Subjective Progress Note Date: 02/24/18 Principal diagnosis: Laryngeal tumor, squamous cell carcinoma, laryngeal stridor, S/P tracheostomy placement This is a 62-year-old male patient was given reason diagnosed having a bulky T2 laryngeal squamous cell carcinoma. The patient was referred to radiation oncology, Dr. Kong, and the patient has been completing palliative radiation therapy to his laryngeal cancer. During this time the patient was getting progressively more short of breath. He apparently had contacted Dr. Holm. The patient was developing some airway compromise and worsening stridor. He was evaluated on outpatient basis and he was offered tracheostomy tube insertion but the patient refused. Subsequently, his condition got worse and the patient got admitted yesterday to the hospital and a emergency tracheostomy tube insertion was done by ENT. This was done the operating room and following that the patient got moved to the intensive care unit. The patient currently has a #7 a tracheostomy tube and the tube was secured in place and it was inserted without any complications. The patient is doing well. The patient is hemodynamically stable. The patient is awake and alert. No hemoptysis. Note that he was also having difficulty with swallowing prior to this tracheostomy tube insertion and a swallow needs to be reevaluated the later stage. He is currently nothing by mouth. He is a chronic smoker. He also has history of COPD. He has chronic issues with back pain and currently receiving morphine on as needed basis for pain control. No chest pain. No nausea. No vomiting. No aspiration. No other complaints otherwise. Hemodynamically stable. Family is at the bedside. He is known to have coronary artery disease and he has undergone previous bypass surgery. He is also undergone previous cardiac catheterization and stenting. He has a chronic smoker and he suffers some peripheral vascular disease and chronic back pain and he has received her sinuses back and has undergone various procedures regarding chronic back pain through pain management. His current white cell count is at 13.0. He was stable at 13.0. Rest of the blood work and electrodes are all within normal limits. On 02/22/2018, the patient is feeling better. The patient is awake and alert. The patient is not having any significant respiratory distress. The patient has a Bivona tracheostomy tube in place. The patient also has a trach collar at 40%. Pulse ox in the low 90s. No significant rest or secretions. No chest pain. A bedside swallow evaluation was done and the patient was able to swallow applesauce without any major difficulties. No pressures under good control. Hemoglobin stable at 12.8. No other electrodes imbalance. No other significant events overnight. On 02/23/2018 the patient is being seen in a follow-up. Doing well. No specific complaints. No significant secretions from his tracheostomy tube. He was able to tolerate soft diet without any major difficulties. No aspiration. Pain is under good control. No other significant events over the past 24 hours. On 02/24/2018 patient seen in follow-up on medical surgical floor. No specific complaints, he has some moderate amount of secretions from his tracheostomy tube , he is able to expectorate with coughing, and requires endotracheal suctioning occasionally. He is tolerating soft diet, no aspiration was noted. Pain is well controlled. He is on FiO2 of 40% per trach collar, he is afebrile. Lung sounds are coarse, with a few wheezes. The biopsy of the vocal cord mass is still pending. Otherwise patient is calm and comfortable, sitting up in the recliner, in no acute distress. Thinks that he may be able to go home instead of the rehab facility, he has been ambulating in the room, without major difficulties. Objective - Vital Signs Vital signs: Vital Signs Temp 97.5 F L 02/24/18 05:00 Pulse 73 02/24/18 09:15 Resp 17 02/24/18 09:15 BP 155/82 02/24/18 05:00 Pulse Ox 92 L 02/24/18 05:00 Intake & Output 02/23/18 02/24/18 02/24/18 18:59 06:59 18:59 Intake Total 650 780 Balance 650 780 Weight 100.8 kg Intake: Intake, IV Titration 650 Amount Lactated Ringers 1,000 ml 600 @ 75 mls/hr IV .[id number] [facility] Rx#:[id number] cefTRIAXone 1,000 mg In 50 Sodium Chloride 0.9% 50 ml @ 100 mls/hr IVPB Q12HR [facility] Rx#:[id number] Oral 780 Other: Voiding Method Urinal Urinal Urinal # Voids 2 - Exam Gen. appearance, comfortable the patient is not in acute distress Head exam was generally normal. There was no scleral icterus or corneal arcus. Mucous membranes were moist. Neck is supple and the patient is a Bivona tracheostomy tube #[address] No neck masses. No adenopathy. No neck stiffness. No goiter. There is mild to moderate amount of yellow secretions out of the tracheostomy Lungs were coarse to auscultation, and with normal diaphragmatic excursion. A few scattered wheezes were noted. Cardiac exam revealed the PMI to be normally situated and sized. The rhythm was regular and no extrasystoles were noted during several minutes of auscultation. The first and second heart sounds were normal and physiologic splitting of the second heart sound was noted. There were no murmurs, rubs, clicks, or gallops. Abdominal exam revealed normal bowel sounds. The abdomen was soft, non-tender, and without masses, organomegaly, or appreciable enlargement of the abdominal aorta. Examination of the extremities revealed easily palpable radial, femoral and pedal pulses. There was no cyanosis, clubbing or edema. Examination of the skin revealed no evidence of significant rashes, suspicious appearing nevi or other concerning lesions. Neurologically awake and alert and there is no focal neurological deficits. 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 The patient underwent an emergent tracheostomy tube insertion and the patient is postop day #4. Follow- up biopsies were also done and the results are still pending for now 3 shortness of breath, secondary to above, relieved post insertion of tracheostomy tube. The patient is resting comfortably in bed and shortness of breath is essentially recovered and resolved. 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 The patient is currently on IV Protonix. Plan Awaiting the results of the vocal cord mass biopsy. Patient denies any respiratory difficulties, requires occasional suctioning, otherwise he is able to expectorate phlegm with coughing. Tolerating diet, vital signs are stable. Continue bronchodilators, continue to follow I performed a history & physical examination of the patient and discussed their management with my nurse practitioner, Latrice Toscano. I reviewed the nurse practitioner's note and agree with the documented findings and plan of care. Lung sounds are faint wheezes bilaterally, and scattered rhonchi. The findings and the impression was discussed with the patient. I attest to the documentation by the nurse practitioner. Time with Patient: Less than 30
[2018-02-25 08:03] LABS: Basophils % (A) 0 %; Eosinophils # (A) 0.2 k/uL (0-0.7); Eosinophils % (A) 3 %; HCT 37.2 % (39.0-53.0); HGB 12.5 gm/dL (13.0-17.5); Lymphocytes # (A) 1.6 k/uL (1.0-4.8); Lymphocytes % (A) 24 %; MCH 31.2 pg (25.0-35.0); MCHC 33.6 g/dL (31.0-37.0); MCV 92.6 fL (80.0-100.0); Mean Platelet Volume 6.8; Monocytes # (A) 0.6 k/uL (0-1.0); Monocytes % (A) 9 %; Neutrophils # (A) 4.2 k/uL (1.3-7.7); Neutrophils % (A) 62 %; Platelet Count 319 k/uL (150-450); RBC 4.02 m/uL (4.30-5.90); RDW 13.4 % (11.5-15.5); WBC 6.7 k/uL (3.8-10.6)
[2018-02-25 08:24] LABS: Anion Gap 7 mmol/L; Blood Urea Nitrogen 13 mg/dL (9-20); Calcium 9.3 mg/dL (8.4-10.2); Carbon Dioxide 28 mmol/L (22-30); Chloride 103 mmol/L (98-107); Glucose 101 mg/dL (74-99); Magnesium 1.8 mg/dL (1.6-2.3); Phosphorus 4.3 mg/dL (2.5-4.5); Potassium 4.7 mmol/L (3.5-5.1); Sodium 138 mmol/L (137-145)
[2018-02-25] MEDS: ENOXAPARIN 40 MG/0.4 ML SYRINGE SQ SCH (08:49)
[2018-02-25] MEDS: PANTOPRAZOLE 40 MG/10 ML VIAL IVP SCH (08:49)
[2018-02-25] MEDS: NICOTINE 21MG/24HR PATCH TRANSDERM SCH (08:51)
--- NOTE | 2018-02-25 11:09 | P.PN ---
Subjective Progress Note Date: 02/25/18 Principal diagnosis: Laryngeal tumor, squamous cell carcinoma, laryngeal stridor, S/P tracheostomy placement This is a 62-year-old male patient was given reason diagnosed having a bulky T2 laryngeal squamous cell carcinoma. The patient was referred to radiation oncology, Dr. Kong, and the patient has been completing palliative radiation therapy to his laryngeal cancer. During this time the patient was getting progressively more short of breath. He apparently had contacted Dr. Holm. The patient was developing some airway compromise and worsening stridor. He was evaluated on outpatient basis and he was offered tracheostomy tube insertion but the patient refused. Subsequently, his condition got worse and the patient got admitted yesterday to the hospital and a emergency tracheostomy tube insertion was done by ENT. This was done the operating room and following that the patient got moved to the intensive care unit. The patient currently has a #7 a tracheostomy tube and the tube was secured in place and it was inserted without any complications. The patient is doing well. The patient is hemodynamically stable. The patient is awake and alert. No hemoptysis. Note that he was also having difficulty with swallowing prior to this tracheostomy tube insertion and a swallow needs to be reevaluated the later stage. He is currently nothing by mouth. He is a chronic smoker. He also has history of COPD. He has chronic issues with back pain and currently receiving morphine on as needed basis for pain control. No chest pain. No nausea. No vomiting. No aspiration. No other complaints otherwise. Hemodynamically stable. Family is at the bedside. He is known to have coronary artery disease and he has undergone previous bypass surgery. He is also undergone previous cardiac catheterization and stenting. He has a chronic smoker and he suffers some peripheral vascular disease and chronic back pain and he has received her sinuses back and has undergone various procedures regarding chronic back pain through pain management. His current white cell count is at 13.0. He was stable at 13.0. Rest of the blood work and electrodes are all within normal limits. On 02/22/2018, the patient is feeling better. The patient is awake and alert. The patient is not having any significant respiratory distress. The patient has a Bivona tracheostomy tube in place. The patient also has a trach collar at 40%. Pulse ox in the low 90s. No significant rest or secretions. No chest pain. A bedside swallow evaluation was done and the patient was able to swallow applesauce without any major difficulties. No pressures under good control. Hemoglobin stable at 12.8. No other electrodes imbalance. No other significant events overnight. On 02/23/2018 the patient is being seen in a follow-up. Doing well. No specific complaints. No significant secretions from his tracheostomy tube. He was able to tolerate soft diet without any major difficulties. No aspiration. Pain is under good control. No other significant events over the past 24 hours. On 02/24/2018 patient seen in follow-up on medical surgical floor. No specific complaints, he has some moderate amount of secretions from his tracheostomy tube , he is able to expectorate with coughing, and requires endotracheal suctioning occasionally. He is tolerating soft diet, no aspiration was noted. Pain is well controlled. He is on FiO2 of 40% per trach collar, he is afebrile. Lung sounds are coarse, with a few wheezes. The biopsy of the vocal cord mass is still pending. Otherwise patient is calm and comfortable, sitting up in the recliner, in no acute distress. Thinks that he may be able to go home instead of the rehab facility, he has been ambulating in the room, without major difficulties. On 02/25/2018 patient seen in follow-up. He is anxious to receive the results of the biopsy and to see what the plan of care is. Clinically he denies any acute complaints, he is coughing up large amount of yellow secretions through his trach, lung sounds are positive for faint expiratory wheezes, but overall seems to be less congested compared to yesterday's exam. Oral intake, vital signs are stable, biopsy of the vocal cord is just in, and showed him his mucosa with prominent acute inflammation, but negative for malignancy. Discharge planning is in progress for discharge possibly tomorrow with, or home with home care. Patient has been ambulating in the room, and tolerating activity well. Objective - Vital Signs Vital signs: Vital Signs Temp 98.3 F 02/25/18 08:04 Pulse 74 02/25/18 08:04 Resp 20 02/25/18 08:04 BP 157/88 02/25/18 08:04 Pulse Ox 95 02/25/18 08:04 Intake & Output 02/24/18 02/25/18 02/25/18 18:59 06:59 18:59 Intake Total 525 550 Balance 525 550 Intake: IV 525 550 Lactated Ringers 1,000 ml 525 550 @ 75 mls/hr IV .[id number] [facility] Rx#:[id number] Other: Voiding Method Urinal Toilet Urinal # Voids 2 - Exam Gen. appearance, comfortable the patient is not in acute distress Head exam was generally normal. There was no scleral icterus or corneal arcus. Mucous membranes were moist. Neck is supple and the patient is a Bivona tracheostomy tube #[address] No neck masses. No adenopathy. No neck stiffness. No goiter. There is mild to moderate amount of yellow secretions out of the tracheostomy Lungs were coarse to auscultation, and with normal diaphragmatic excursion. A few scattered wheezes were noted. Cardiac exam revealed the PMI to be normally situated and sized. The rhythm was regular and no extrasystoles were noted during several minutes of auscultation. The first and second heart sounds were normal and physiologic splitting of the second heart sound was noted. There were no murmurs, rubs, clicks, or gallops. Abdominal exam revealed normal bowel sounds. The abdomen was soft, non-tender, and without masses, organomegaly, or appreciable enlargement of the abdominal aorta. Examination of the extremities revealed easily palpable radial, femoral and pedal pulses. There was no cyanosis, clubbing or edema. Examination of the skin revealed no evidence of significant rashes, suspicious appearing nevi or other concerning lesions. Neurologically awake and alert and there is no focal neurological deficits. 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 The patient underwent an emergent tracheostomy tube insertion and the patient is postop day #4. Follow- up biopsies were also done and the results are still pending for now 3 shortness of breath, secondary to above, relieved post insertion of tracheostomy tube. The patient is resting comfortably in bed and shortness of breath is essentially recovered and resolved. 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 The patient is currently on IV Protonix. Plan Patient denies any respiratory difficulties, he has an effective cough, coughing up large amount of yellow secretions, vital signs are stable, no acute complaints. Biopsy of the vocal cords was negative for evidence of malignancy, it was positive for inflammation only. From pulmonary standpoint patient is able for discharge, and discharge planning is in progress placement to subacute rehab versus home with home care. I performed a history & physical examination of the patient and discussed their management with my nurse practitioner, Latrice Toscano. I reviewed the nurse practitioner's note and agree with the documented findings and plan of care. Lung sounds are faint wheezes bilaterally, and scattered rhonchi. The findings and the impression was discussed with the patient. I attest to the documentation by the nurse practitioner. Time with Patient: Less than 30
[2018-02-25] MEDS ORDERED: ACETAMINOPHEN TAB 500 MG TAB PO PRN (11:15)
[2018-02-25] MEDS ORDERED: methylPREDNISolone 4 MG TAB TAPER PO SCH (15:30)
[2018-02-25] MEDS: methylPREDNISolone 4 MG TAB TAPER PO SCH (16:37)
--- NOTE | 2018-02-25 17:01 | P.PN ---
Subjective pt could not provide full information and it was taken from pt , records and staff this is pleasant 62 yo M with pmh of laryngeal cancer receiving radiotherapy , who presents with progressive dyspnea over several days. emergent tracheostomy tube was placed emergently by ENT team . pt refused treacheostomy tube in the outpt before . after procedure pt was transferred to ICU, pt was sitting in chair with treacheostomy is in place and oxygen therapy is porvided through it . pt could not talk to me although he was fully awake and follow commands appropriartly secondary to treacheostomy. pt did not show distress, he denies chest pain or pain anywhere else. his sugar is good controlled in the range 117- 130s. 02/23/18 Patient is lying in bed comfortable distress. His breathing quietly through his tracheostomy tube. Tracheostomy is in place. Vitas looks stable and his oxygen saturation is 94% . This is an oxygen therapy with FiO2 40% some vital signs stable, patient spiked fever yesterday at 100.1. However he has no fever since while off antibiotics. his leukocytosis 12-13 K is back to normal , c/w ceftriaxone i have long discussion with pt and his son and family at bed side upon pt request, pt can not articulate and talk due to his tracheostomy . and update pt that biopsy is still pending 02/24/2018 No change in the patient clinical situation. No dyspnea or chest pain. Tracheostomy tube is in place and working. Oxygen saturation is 92 onto 40%. No pain. Pathology report is still pending. Informed the patient and son at bedside. And they agreed that his appointment, no Center need to be rescheduled. 02/25/2018 Patient breathing through the tracheostomy tube with no difficulties, however there is secretions. Patient will need a respiratory therapist evaluation and suctioning and they going to teach the patient and her family. Biopsy results came back negative for malignancy, but positive for inflammation. Patient and family were happy about that. Plan for possible rehab/tracheostomy management for 2-3 days. Patient is saturating 94 L to 95 L on room air. He'll stop with antibiotic, his leukocytosis and fever resolved. Keep monitoring. Patient missed his appointment with, nose, since his biopsy result came back negative the patient family they don't want to follow up with,anyway because they are thinking they were recommending tracheostomy and he got anyway. Patient is counseled to follow-up with his PCP and oncologist as outpatient and he agrees Objective - Vital Signs Vital signs: Vital Signs Temp 99.3 F 02/25/18 13:25 Pulse 71 02/25/18 13:25 Resp 22 02/25/18 13:25 BP 194/86 02/25/18 13:25 Pulse Ox 94 L 02/25/18 13:25 Intake & Output 02/24/18 02/25/18 02/25/18 18:59 06:59 18:59 Intake Total 525 550 500 Balance 525 550 500 Intake: IV 525 550 Lactated Ringers 1,000 ml 525 550 @ 75 mls/hr IV .[id number] [facility] Rx#:[id number] Oral 500 Other: Voiding Method Urinal Toilet Toilet Urinal # Voids 2 - Exam GENERAL: The patient is alert and oriented x3, not in any acute distress. Well developed, well nourished. HEENT: Pupils are round and equally reacting to light. EOMI. No scleral icterus. No conjunctival pallor. Normocephalic, atraumatic. No pharyngeal erythema. No thyromegaly. CARDIOVASCULAR: S1 and S2 present. No murmurs, rubs, or gallops. PULMONARY: Chest is clear to auscultation, no wheezing or crackles. tracheostomy is in a Place ABDOMEN: Soft, nontender, nondistended, normoactive bowel sounds. No palpable organomegaly. MUSCULOSKELETAL: No joint swelling or deformity. EXTREMITIES: No cyanosis, clubbing, or pedal edema. NEUROLOGICAL: Gross neurological examination did not reveal any focal deficits. SKIN: No rashes. - Labs CBC & Chem 7: 02/25/18 07:18 02/25/18 07:18 Labs: Abnormal Lab Results - Last 24 Hours (Table) 02/25/18 02/25/18 Range/Units 07:18 07:18 RBC 4.02 L (4.30-5.90) m/uL Hgb 12.5 L (13.0-17.5) gm/dL Hct 37.2 L (39.0-53.0) % Creatinine 0.64 L (0.66-1.25) mg/dL Glucose 101 H (74-99) mg/dL Assessment and Plan Assessment: laryngeal cancer receiving radiotherapy . s/p radiotherapy stridor, needed emergent tracheostomy Possible infection of the tracheostomy site, with leukocytosis and fever, resolved Plan: continue with the same treatment , continue with symptomatic treatment , resume home medication , monitor lytes and vitals including glucose , c/w iv fluids as ringer lactate, cardiology consult is appreciated. critical care/pulmonary team input and management is appreciated . c/w supportive care. pain management . dc ceftriaxone. Follow-up vitals and WBC GI and DVT prophylaxis , further recommendation based upon pt clinical course and progress DVT prophylaxis subcutaneous lovenox GI prophylaxis pepcid Prognosis is guarded
[2018-02-25] MEDS: LACTATED RINGERS 1,000 ML IV SCH ×2 (17:23→21:20)
[2018-02-25] MEDS: amLODIPine 5 MG TAB PO SCH (17:24)
[2018-02-25] MEDS ORDERED: CEFDINIR ORAL SUSP 1,500 MG/60 ML BOTTLE PO SCH (21:00)
[2018-02-26] MEDS: ENOXAPARIN 40 MG/0.4 ML SYRINGE SQ SCH (09:26)
[2018-02-26] MEDS: PANTOPRAZOLE 40 MG/10 ML VIAL IVP SCH (09:26)
[2018-02-26] MEDS: amLODIPine 5 MG TAB PO SCH (09:27)
[2018-02-26] MEDS: NICOTINE 21MG/24HR PATCH TRANSDERM SCH (09:27)
[2018-02-26] MEDS: LACTATED RINGERS 1,000 ML IV SCH ×2 (09:52→21:47)
[2018-02-26] MEDS: methylPREDNISolone 4 MG TAB TAPER PO SCH (10:18)
--- NOTE | 2018-02-26 12:32 | P.PN ---
Subjective Progress Note Date: 02/26/18 Principal diagnosis: Laryngeal tumor, squamous cell carcinoma, laryngeal stridor, S/P tracheostomy placement This is a 62-year-old male patient was given reason diagnosed having a bulky T2 laryngeal squamous cell carcinoma. The patient was referred to radiation oncology, Dr. Kong, and the patient has been completing palliative radiation therapy to his laryngeal cancer. During this time the patient was getting progressively more short of breath. He apparently had contacted Dr. Holm. The patient was developing some airway compromise and worsening stridor. He was evaluated on outpatient basis and he was offered tracheostomy tube insertion but the patient refused. Subsequently, his condition got worse and the patient got admitted yesterday to the hospital and a emergency tracheostomy tube insertion was done by ENT. This was done the operating room and following that the patient got moved to the intensive care unit. The patient currently has a #7 a tracheostomy tube and the tube was secured in place and it was inserted without any complications. The patient is doing well. The patient is hemodynamically stable. The patient is awake and alert. No hemoptysis. Note that he was also having difficulty with swallowing prior to this tracheostomy tube insertion and a swallow needs to be reevaluated the later stage. He is currently nothing by mouth. He is a chronic smoker. He also has history of COPD. He has chronic issues with back pain and currently receiving morphine on as needed basis for pain control. No chest pain. No nausea. No vomiting. No aspiration. No other complaints otherwise. Hemodynamically stable. Family is at the bedside. He is known to have coronary artery disease and he has undergone previous bypass surgery. He is also undergone previous cardiac catheterization and stenting. He has a chronic smoker and he suffers some peripheral vascular disease and chronic back pain and he has received her sinuses back and has undergone various procedures regarding chronic back pain through pain management. His current white cell count is at 13.0. He was stable at 13.0. Rest of the blood work and electrodes are all within normal limits. On 02/22/2018, the patient is feeling better. The patient is awake and alert. The patient is not having any significant respiratory distress. The patient has a Bivona tracheostomy tube in place. The patient also has a trach collar at 40%. Pulse ox in the low 90s. No significant rest or secretions. No chest pain. A bedside swallow evaluation was done and the patient was able to swallow applesauce without any major difficulties. No pressures under good control. Hemoglobin stable at 12.8. No other electrodes imbalance. No other significant events overnight. On 02/23/2018 the patient is being seen in a follow-up. Doing well. No specific complaints. No significant secretions from his tracheostomy tube. He was able to tolerate soft diet without any major difficulties. No aspiration. Pain is under good control. No other significant events over the past 24 hours. On 02/24/2018 patient seen in follow-up on medical surgical floor. No specific complaints, he has some moderate amount of secretions from his tracheostomy tube , he is able to expectorate with coughing, and requires endotracheal suctioning occasionally. He is tolerating soft diet, no aspiration was noted. Pain is well controlled. He is on FiO2 of 40% per trach collar, he is afebrile. Lung sounds are coarse, with a few wheezes. The biopsy of the vocal cord mass is still pending. Otherwise patient is calm and comfortable, sitting up in the recliner, in no acute distress. Thinks that he may be able to go home instead of the rehab facility, he has been ambulating in the room, without major difficulties. On 02/25/2018 patient seen in follow-up. He is anxious to receive the results of the biopsy and to see what the plan of care is. Clinically he denies any acute complaints, he is coughing up large amount of yellow secretions through his trach, lung sounds are positive for faint expiratory wheezes, but overall seems to be less congested compared to yesterday's exam. Oral intake, vital signs are stable, biopsy of the vocal cord is just in, and showed him his mucosa with prominent acute inflammation, but negative for malignancy. Discharge planning is in progress for discharge possibly tomorrow with, or home with home care. Patient has been ambulating in the room, and tolerating activity well. On 02/26/2018 patient seen in follow-up on medical surgical floor. Patient is stable from pulmonary standpoint, still bringing up some sputum, and to be less compared to yesterday. Has to be suctioned periodically. Room air pulse ox is 92%, patient is afebrile, vital signs are stable, lung sounds are positive for some end expiratory wheezing, patient was placed on Medrol Dosepak, antibiotics have been discontinued, urine culture showed no growth. Sees were negative for any evidence of malignancy, inflammation only. Patient is awaiting a bed in the subacute rehab, he was anticipated to be only for a short stay with the purpose of education regarding the tracheostomy care. Patient does reside alone , however he is able to ambulate, and his family support is available and patient is requesting to go home after receiving some education on tracheostomy care along with his family. Will speak to discharge planners regarding plan of care. Objective - Vital Signs Vital signs: Vital Signs Temp 97.6 F 02/26/18 11:55 Pulse 63 02/26/18 11:55 Resp 16 02/26/18 11:55 BP 142/62 02/26/18 11:55 Pulse Ox 92 L 02/26/18 11:55 Intake & Output 02/25/18 02/26/18 02/26/18 18:59 06:59 18:59 Intake Total 500 Balance 500 Intake: Oral 500 Other: Voiding Method Toilet Toilet Toilet # Voids 2 - Exam Gen. appearance, comfortable the patient is not in acute distress Head exam was generally normal. There was no scleral icterus or corneal arcus. Mucous membranes were moist. Neck is supple and the patient is a Bivona tracheostomy tube #[address] No neck masses. No adenopathy. No neck stiffness. No goiter. There is small amount of yellow secretions out of the tracheostomy Lungs were coarse to auscultation, and with normal diaphragmatic excursion. A few scattered wheezes were noted. Cardiac exam revealed the PMI to be normally situated and sized. The rhythm was regular and no extrasystoles were noted during several minutes of auscultation. The first and second heart sounds were normal and physiologic splitting of the second heart sound was noted. There were no murmurs, rubs, clicks, or gallops. Abdominal exam revealed normal bowel sounds. The abdomen was soft, non-tender, and without masses, organomegaly, or appreciable enlargement of the abdominal aorta. Examination of the extremities revealed easily palpable radial, femoral and pedal pulses. There was no cyanosis, clubbing or edema. Examination of the skin revealed no evidence of significant rashes, suspicious appearing nevi or other concerning lesions. Neurologically awake and alert and there is no focal neurological deficits. 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 The patient underwent an emergent tracheostomy tube insertion and the patient is postop day #5. Follow- up biopsies were also done and the results are positive for inflammatory cells, but negative for malignancy 3 shortness of breath, secondary to above, relieved post insertion of tracheostomy tube. The patient is resting comfortably in bed and shortness of breath is essentially recovered and resolved. 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 The patient is currently on IV Protonix. Plan Patient remains stable from pulmonary standpoint, continue with Medrol Dosepak, and IV Rocephin, sputum cultures showed no growth, no fever, no chills, no leukocytosis. He is requesting to go home instead of subacute rehab, he thinks he can manage his care at home after receiving some education on the tracheostomy care. His family support is available, will speak to discharge planners in regards to arranging equipment, visiting nursing at home. I performed a history & physical examination of the patient and discussed their management with my nurse practitioner, Latrice Toscano. I reviewed the nurse practitioner's note and agree with the documented findings and plan of care. Lung sounds are faint wheezes bilaterallyi. The findings and the impression was discussed with the patient. I attest to the documentation by the nurse practitioner. Time with Patient: Less than 30
[2018-02-27] MEDS: ENOXAPARIN 40 MG/0.4 ML SYRINGE SQ SCH ×2 (09:31→09:40)
[2018-02-27] MEDS: methylPREDNISolone 4 MG TAB TAPER PO SCH (09:31)
[2018-02-27] MEDS: amLODIPine 5 MG TAB PO SCH (09:32)
[2018-02-27] MEDS: PANTOPRAZOLE 40 MG/10 ML VIAL IVP SCH (09:32)
[2018-02-27] MEDS: NICOTINE 21MG/24HR PATCH TRANSDERM SCH (09:32)
[2018-02-27] MEDS ORDERED: PANTOPRAZOLE 40 MG TABLET PO SCH (09:45)
[2018-02-27] MEDS ORDERED: LEVOFLOXACIN 500 MG TAB PO SCH (12:00)
[2018-02-27] MEDS: LACTATED RINGERS 1,000 ML IV SCH (12:11)
[2018-02-27 13:03] VITALS: BMI 29.3
[2018-02-27 13:51] VITALS: BP 147/77; PULSE 78; RESP 17; TEMP 98.7
--- NOTE | 2018-02-27 16:53 | P.PN ---
Subjective pt could not provide full information and it was taken from pt , records and staff this is pleasant 62 yo M with pmh of laryngeal cancer receiving radiotherapy , who presents with progressive dyspnea over several days. emergent tracheostomy tube was placed emergently by ENT team . pt refused treacheostomy tube in the outpt before . after procedure pt was transferred to ICU, pt was sitting in chair with treacheostomy is in place and oxygen therapy is porvided through it . pt could not talk to me although he was fully awake and follow commands appropriartly secondary to treacheostomy. pt did not show distress, he denies chest pain or pain anywhere else. his sugar is good controlled in the range 117- 130s. 02/23/18 Patient is lying in bed comfortable distress. His breathing quietly through his tracheostomy tube. Tracheostomy is in place. Vitas looks stable and his oxygen saturation is 94% . This is an oxygen therapy with FiO2 40% some vital signs stable, patient spiked fever yesterday at 100.1. However he has no fever since while off antibiotics. his leukocytosis 12-13 K is back to normal , c/w ceftriaxone i have long discussion with pt and his son and family at bed side upon pt request, pt can not articulate and talk due to his tracheostomy . and update pt that biopsy is still pending 02/24/2018 No change in the patient clinical situation. No dyspnea or chest pain. Tracheostomy tube is in place and working. Oxygen saturation is 92 onto 40%. No pain. Pathology report is still pending. Informed the patient and son at bedside. And they agreed that his appointment, no Center need to be rescheduled. 02/25/2018 Patient breathing through the tracheostomy tube with no difficulties, however there is secretions. Patient will need a respiratory therapist evaluation and suctioning and they going to teach the patient and her family. Biopsy results came back negative for malignancy, but positive for inflammation. Patient and family were happy about that. Plan for possible rehab/tracheostomy management for 2-3 days. Patient is saturating 94 L to 95 L on room air. He'll stop with antibiotic, his leukocytosis and fever resolved. Keep monitoring. Patient missed his appointment with, nose, since his biopsy result came back negative the patient family they don't want to follow up with,anyway because they are thinking they were recommending tracheostomy and he got anyway. Patient is counseled to follow-up with his PCP and oncologist as outpatient and he agrees Objective - Vital Signs Vital signs: Vital Signs Temp 97.6 F 02/26/18 11:55 Pulse 63 02/26/18 11:55 Resp 16 02/26/18 11:55 BP 142/62 02/26/18 11:55 Pulse Ox 92 L 02/26/18 11:55 Intake & Output 02/25/18 02/26/18 02/26/18 18:59 06:59 18:59 Intake Total 500 Balance 500 Intake: Oral 500 Other: Voiding Method Toilet Toilet Toilet # Voids 2 - Exam GENERAL: The patient is alert and oriented x3, not in any acute distress. Well developed, well nourished. HEENT: Pupils are round and equally reacting to light. EOMI. No scleral icterus. No conjunctival pallor. Normocephalic, atraumatic. No pharyngeal erythema. No thyromegaly. CARDIOVASCULAR: S1 and S2 present. No murmurs, rubs, or gallops. PULMONARY: Chest is clear to auscultation, no wheezing or crackles. tracheostomy is in a Place ABDOMEN: Soft, nontender, nondistended, normoactive bowel sounds. No palpable organomegaly. MUSCULOSKELETAL: No joint swelling or deformity. EXTREMITIES: No cyanosis, clubbing, or pedal edema. NEUROLOGICAL: Gross neurological examination did not reveal any focal deficits. SKIN: No rashes. - Labs CBC & Chem 7: 02/25/18 07:18 02/25/18 07:18 Assessment and Plan Assessment: laryngeal cancer receiving radiotherapy . s/p radiotherapy stridor, needed emergent tracheostomy Possible infection of the tracheostomy site, with leukocytosis and fever, resolved Plan: continue with the same treatment , continue with symptomatic treatment , resume home medication , monitor lytes and vitals including glucose , c/w iv fluids as ringer lactate, cardiology consult is appreciated. critical care/pulmonary team input and management is appreciated . c/w supportive care. pain management . dc ceftriaxone. Follow-up vitals and WBC GI and DVT prophylaxis , further recommendation based upon pt clinical course and progress DVT prophylaxis subcutaneous lovenox GI prophylaxis pepcid Prognosis is guarded
--- NOTE | 2018-02-27 16:56 | P.PN ---
Subjective pt could not provide full information and it was taken from pt , records and staff this is pleasant 62 yo M with pmh of laryngeal cancer receiving radiotherapy , who presents with progressive dyspnea over several days. emergent tracheostomy tube was placed emergently by ENT team . pt refused treacheostomy tube in the outpt before . after procedure pt was transferred to ICU, pt was sitting in chair with treacheostomy is in place and oxygen therapy is porvided through it . pt could not talk to me although he was fully awake and follow commands appropriartly secondary to treacheostomy. pt did not show distress, he denies chest pain or pain anywhere else. his sugar is good controlled in the range 117- 130s. 02/23/18 Patient is lying in bed comfortable distress. His breathing quietly through his tracheostomy tube. Tracheostomy is in place. Vitas looks stable and his oxygen saturation is 94% . This is an oxygen therapy with FiO2 40% some vital signs stable, patient spiked fever yesterday at 100.1. However he has no fever since while off antibiotics. his leukocytosis 12-13 K is back to normal , c/w ceftriaxone i have long discussion with pt and his son and family at bed side upon pt request, pt can not articulate and talk due to his tracheostomy . and update pt that biopsy is still pending 02/24/2018 No change in the patient clinical situation. No dyspnea or chest pain. Tracheostomy tube is in place and working. Oxygen saturation is 92 onto 40%. No pain. Pathology report is still pending. Informed the patient and son at bedside. And they agreed that his appointment, no Center need to be rescheduled. 02/25/2018 Patient breathing through the tracheostomy tube with no difficulties, however there is secretions. Patient will need a respiratory therapist evaluation and suctioning and they going to teach the patient and her family. Biopsy results came back negative for malignancy, but positive for inflammation. Patient and family were happy about that. Plan for possible rehab/tracheostomy management for 2-3 days. Patient is saturating 94 L to 95 L on room air. He'll stop with antibiotic, his leukocytosis and fever resolved. Keep monitoring. Patient missed his appointment with, nose, since his biopsy result came back negative the patient family they don't want to follow up with,anyway because they are thinking they were recommending tracheostomy and he got anyway. Patient is counseled to follow-up with his PCP and oncologist as outpatient and he agrees 02/27/2018 pt is seen and examined by me at bed side , pt continue to do well , he has some purulent discharge from his tracheostomy opening and pt has been evaluated by pulmonary team and they started pt on levaquin and prescription is provided by them , their input is appreciated . pt is going to home , he did not get authorization to go for rehab and pending approval for a [facility] resp therapist . possible dc today or tomorrow, pt is stable for discharge medically Objective - Vital Signs Vital signs: Vital Signs Temp 98.7 F 02/27/18 13:20 Pulse 78 02/27/18 13:20 Resp 17 02/27/18 13:20 BP 147/77 02/27/18 13:20 Pulse Ox 94 L 02/27/18 13:20 Intake & Output 02/26/18 02/27/18 02/27/18 18:59 06:59 18:59 Output Total 226 Balance -226 Weight 100.8 kg 100.8 kg Output: Urine 225 Stool 1 Other: Voiding Method Toilet Toilet Toilet # Voids 3 1 3 # Bowel Movements 1 - Exam GENERAL: The patient is alert and oriented x3, not in any acute distress. Well developed, well nourished. HEENT: Pupils are round and equally reacting to light. EOMI. No scleral icterus. No conjunctival pallor. Normocephalic, atraumatic. No pharyngeal erythema. No thyromegaly. CARDIOVASCULAR: S1 and S2 present. No murmurs, rubs, or gallops. PULMONARY: Chest is clear to auscultation, no wheezing or crackles. tracheostomy is in a Place ABDOMEN: Soft, nontender, nondistended, normoactive bowel sounds. No palpable organomegaly. MUSCULOSKELETAL: No joint swelling or deformity. EXTREMITIES: No cyanosis, clubbing, or pedal edema. NEUROLOGICAL: Gross neurological examination did not reveal any focal deficits. SKIN: No rashes. - Labs CBC & Chem 7: 02/25/18 07:18 02/25/18 07:18 Assessment and Plan Assessment: laryngeal cancer receiving radiotherapy . s/p radiotherapy stridor, needed emergent tracheostomy Possible infection of the tracheostomy site, with leukocytosis and fever, resolved Plan: continue with the same treatment , continue with symptomatic treatment , resume home medication , monitor lytes and vitals including glucose , c/w iv fluids as ringer lactate, cardiology consult is appreciated. critical care/pulmonary team input and management is appreciated . c/w supportive care. pain management . dc ceftriaxone. Follow-up vitals and WBC GI and DVT prophylaxis , further recommendation based upon pt clinical course and progress DVT prophylaxis subcutaneous lovenox GI prophylaxis pepcid Prognosis is guarded
[2018-02-28] MEDS ORDERED: amLODIPine 10 MG TAB PO SCH (09:00)
--- NOTE | 2018-03-01 10:05 | P.DS ---
Providers Date of admission: 02/20/18 20:49 Attending physician: Fadia Sal Consults: 02/20/18 20:54 Consult Physician Stat Consulting Provider: Gurvinder Yancey Consult Reason/Comments: Laryngeal carcinoma, stridor Do you want consulting provider notified?: Already Contacted 02/20/18 23:53 Consult Physician Routine Consulting Provider: Blaine Bruce Consult Reason/Comments: ICU management of new trach Do you want consulting provider notified?: Yes Primary care physician: [facility] Course: Date of Service: 02/27/2018 this is pleasant 62 yo M with pmh of laryngeal cancer receiving radiotherapy , who presents with progressive dyspnea over several days. emergent tracheostomy tube was placed by ENT team . pt refused treacheostomy tube in the outpt before . after procedure pt was transferred to ICU and after stabilization to the general medical floor , pt kept doing well. Biopsy results came back negative for malignancy, but positive for inflammation. pt had recurrent infection at the tracheostomy and he is been discharged on antibiotic with no leukocytosis and fever has been resolved. Patient is to be discharged to subacute rehab, he was anticipated to be only for a short stay with the purpose of education regarding the tracheostomy care. his family support is available and patient is requesting to go home after receiving some education on tracheostomy care along with his family. pt and family were planed to go to [facility] for appointment with oncologist for a second opinion and others. however they changed theri mind after the biopsy came back negative and did not want to go to [facility]. appointment has been made with his pcp Dr. St and he agreed to me to the appointment time and date. and told he will f/u. pt has been cleared by pulmonary and ENT for discharge. Pt was instructed about the problems and management plan and Pt verbalized understanding and acceptance Pt is found stable and can be discharged to the community but needs follow up as outpt see my exam for the same day progress note time spent more than 35 min Patient Condition at Discharge: Good Plan - Discharge Summary Discharge Rx Participant: No New Discharge Prescriptions: New Acetaminophen Tab [Tylenol] 1,000 mg PO Q12HR PRN tab PRN Reason: Fever And/Or Mild Pain amLODIPine [Norvasc] 5 mg PO DAILY #30 tab cloNIDine 0.2 MG/24HR PATCH [Catapres-TTS] 1 patch TRANSDERM Q7D #30 patch methylPREDNISolone Dose Pack [Medrol Dose Pack] 24 mg PO DAILY #1 pack Nicotine 21Mg/24Hr Patch [Habitrol] 1 patch TRANSDERM DAILY #30 patch Levofloxacin [Levaquin] 500 mg PO DAILY 7 Days #7 tab Continue Omeprazole [PriLOSEC] 20 mg PO DAILY PRN PRN Reason: Heartburn Ibuprofen [Motrin] 800 mg PO TID PRN #90 tab PRN Reason: Pain oxyCODONE HCL 20 mg PO Q8HR PRN #90 tab PRN Reason: Pain Discharge Medication List Omeprazole [PriLOSEC] 20 mg PO DAILY PRN 12/19/15 [History] Ibuprofen [Motrin] 800 mg PO TID PRN #90 tab 10/22/17 [Rx] oxyCODONE HCL 20 mg PO Q8HR PRN #90 tab 10/22/17 [Rx] Acetaminophen Tab [Tylenol] 1,000 mg PO Q12HR PRN tab 02/26/18 [Rx] Nicotine 21Mg/24Hr Patch [Habitrol] 1 patch TRANSDERM DAILY #30 patch 02/26/18 [ Rx] amLODIPine [Norvasc] 5 mg PO DAILY #30 tab 02/26/18 [Rx] cloNIDine 0.2 MG/24HR PATCH [Catapres-TTS] 1 patch TRANSDERM Q7D #30 patch 02/26 [Rx] methylPREDNISolone Dose Pack [Medrol Dose Pack] 24 mg PO DAILY #1 pack 02/26/18 [Rx] Levofloxacin [Levaquin] 500 mg PO DAILY 7 Days #7 tab 02/27/18 [Rx] Follow up Appointment(s)/Referral(s): Gurvinder Yancey DO [Doctor of Osteopathic Medicine] - 03/03/18 3:00 pm Yusuf Branham MD [Primary Care Provider] - 03/10/18 1:00 pm [facility], [NON-STAFF] - 1 Week Patient Instructions/Handouts: Nicotine (Absorbed through the skin), Methylprednisolone (By mouth), Amlodipine (By mouth), Clonidine (Absorbed through the skin), Levofloxacin (By mouth), Tracheostomy Care (DC) Discharge Disposition: HOME WITH HOME HEALTH SERVICES
== END 2018-02-27 18:50 | disposition home health service (06) | DRG 3 ==
LOC: EC 20:37 → 6ICU 20:49 → 5MS5E 02-22 16:40
PROVIDERS: ADMIT Hospitalist; ATTEND Hospitalist
PROC: 0GTJ0ZZ Resection of Thyroid Gland Isthmus, Open Approach (ICD-10-PCS; 2018-02-20)
PROC: 0CBV8ZX Excision of Left Vocal Cord, Via Natural or Artificial Opening Endoscopic, Diagnostic (ICD-10-PCS; 2018-02-20)
PROC: 0CBT8ZX Excision of Right Vocal Cord, Via Natural or Artificial Opening Endoscopic, Diagnostic (ICD-10-PCS; 2018-02-20)
PROC: 0B110F4 Bypass Trachea to Cutaneous with Tracheostomy Device, Open Approach (ICD-10-PCS; principal; 2018-02-20 21:06)
DX: R06.03 Acute respiratory distress (principal); J44.9 Chronic obstructive pulmonary disease, unspecified; R06.1 Stridor; R13.10 Dysphagia, unspecified; R49.0 Dysphonia; K20.8 Other esophagitis; D72.829 Elevated white blood cell count, unspecified; K21.9 Gastro-esophageal reflux disease without esophagitis; I25.10 Atherosclerotic heart disease of native coronary artery without angina pectoris; I73.9 Peripheral vascular disease, unspecified; G89.29 Other chronic pain; M54.9 Dorsalgia, unspecified; I25.2 Old myocardial infarction; H91.90 Unspecified hearing loss, unspecified ear; E66.9 Obesity, unspecified; Z68.29 Body mass index [BMI] 29.0-29.9, adult; F17.210 Nicotine dependence, cigarettes, uncomplicated; Z71.6 Tobacco abuse counseling; Z95.1 Presence of aortocoronary bypass graft; Z95.5 Presence of coronary angioplasty implant and graft; Z92.3 Personal history of irradiation; Z85.21 Personal history of malignant neoplasm of larynx; Y84.2 Radiological procedure and radiotherapy as the cause of abnormal reaction of the patient, or of later complication, without mention of misadventure at the time of the procedure
CPT/HCPCS: 36415; 71045; 80048; 80053; 82310; 83036; 83735; 84100; 85025; 85610; 85730; 86850; 86900; 86901; 87070; 87205; 88305; 88312; 94760; 99285

== ENCOUNTER → 2018-04-08 | Outpatient (CLI) | payer MEDICARE ==
[2018-04-08 12:05] VITALS: BP 119/85; PULSE 85; RESP 16
--- NOTE | 2018-04-08 12:36 | P.PAINPG ---
Subjective Progress Note Date: 04/08/18 This is follow-up visit for this patient with a history of severe and chronic low back pain secondary to lumbar degenerative disc diseases , lumbar spondylosis with facet arthropathy, We have done interventional pain procedures lumbar epidural steroid injection patient gets her term benefit from it, only 2 days of pain relief, and we have done radiofrequency ablation of the medial branch lumbar area . Patients currently on oxycodone 20 mg every 8 hours, Motrin 800 mg every 8 hours , Patient denies any side effects of the medication, denies excessive drowsiness or sleepiness, denies suicidal ideation, and reports that the current pain medication is helping to control the pain ,and improve activity of daily living , he continued to have severe low back pain associated to numbness and tingling sensation in the lower extremities Patient denies any motor or sensory deficit , patient denies any fever or night sweats, denies any change in the bowel movements or urination Patient recently diagnosed with laryngeal cancer, and he is getting radiation therapy to the larynex and also is getting chemotherapy, and patient recently had tracheostomy done Because he had stridor Patient had MRI of the lumbar spine done previously and it showed patient had an L5-S1 disc , and L4 5 lumbar facet arthropathy Physical Examinations : 1-Constitutional : Cooperative , not in acute distress . 2-HEENT : nech ; supple , tracheostomy in place . 3- Respiratory : Chest clear to auscultations Bilaterally , no wheezing , no Rhonchi . 4- Cardiovascular : regular rate and rhythem , S1 , S2 , no S3 , no S4. 5- Gastrointestinal : abdomen soft no tenderness , bowel sounds positive all four quadrents , no organomegally . 6- Genitourinary : Defferred . 7- neurologic: Cranial nerve II to XII intact , no focal neurological deffecit . 8- Psychatric: alert , oriented X 3 , appropriate affect , intact judgment and insight . 9- Lymphatic : no Lymphadenopathy . 10- Musculoskeltal : exams of the Lumber spine =motor strength lower extremities ,thigh and legs .5/5 deep tendon reflexes : normal Knee Jerk , normal ankle Jerk . lumber facet Loading Test positive strait leg raising test positive at 30 degree , RT ,LT , Fabere test positive RT and positive LT . Range of motion: Range of motion in flexion of the lumbar spine 30 degrees Range of motion range of motion of extension of the lumbar spine 10 Sever tenderness over the Sacroiliac joint on the Right , and Left side Assessment and plan = Chronic low back pain secondary to lumbar degenerative disc disease , lumbar spondylosis with facet arthropathy without myelopathy Laryngeal cancer , status post chemo and radiation concurrently he had tracheostomy chronic and current use of high-risk medication (Opioids). The patient was counseled about risk of opioid use, psychological risk associated with opioids and was orally counseled to not overuse , divert,or sell dictations to take medications as prescribed only , and to restore medication in safe location , the patient counseled against driving while using narcotic medications , and also not to use alcohol or any illicit recreational drugs, patient's verbalized understanding that the lack of compliance will result in failure to renew narcotic prescription, and possible discharge from the clinic - diagnoses, prognosis, and treatment options including but not limited to physical therapy, surgical interventions, interventional therapies , and medication management including narcotics and adjuvant medication were discussed with the patient and all the questions answered Prescription refill for oxycodone 20 mg every 8 hours dispense 90 with 1 refill, MAPS reviewed and it was appropriate, Patient currently is not a candidate for interventional pain management until he finished radiation therapy of the laryngeal cancer Objective - Vital Signs Vital signs: Vital Signs Temp 97.6 F 02/11/18 11:03 Pulse 88 02/11/18 11:03 Resp 18 02/11/18 11:03 BP 193/70 02/11/18 11:03 Pulse Ox 96 02/11/18 11:03 Intake & Output 02/10/18 02/11/18 02/11/18 18:59 06:59 18:59 Weight 104.326 kg PQRS Measure Charge Sheet Measure #130: Documentation of Current Meds in Medical Chart: Patient's medications documented in chart Measure #226: Tobacco Use: Screen & Cessation Intervention: Pt screened for tobacco use AND intervention given Measure #111: Pneumonia Vaccination: Pneumococcal vaccine NOT administered or previously given Measure #47: Advance Care Plan: Advance care planning discussed & documented, pt chose/unable to give Measure #412: Opioid Treatment Agreement: Documented signed opioid trtmnt agreemnt min once during opioid trtmnt Measure #408: Opioid Therapy Follow-up Evaluation: Patient had f/u eval minimum every 3 months during opioid therapy Measure #317: Preventitive Care & Scrn High Bld Press & F/U: Pre-hypertensive or hypertensive BP documented, pt will f/u with PCP Measure #128: Body Mass Index (BMI) Screening & Follow-up: BMI documented ABOVE normal parameters - f/u documented Measure #131: Pain Assessment & Follow-up: Pain positive & plan documented, Follow-up scheduled PQRS Narrative: Objective - Vital Signs Vital signs: Vital Signs Temp Pulse 85 04/08/18 11:54 Resp 16 04/08/18 11:54 BP 119/85 04/08/18 11:54 Pulse Ox 96 04/08/18 11:54 Intake & Output 04/07/18 04/08/18 04/08/18 18:59 06:59 18:59 Weight 97.522 kg PQRS Measure Charge Sheet Measure #130: Documentation of Current Meds in Medical Chart: Patient's medications documented in chart Measure #226: Tobacco Use: Screen & Cessation Intervention: Pt not a tobacco user Measure #111: Pneumonia Vaccination: Pneumococcal vaccine NOT administered or previously given Measure #47: Advance Care Plan: Advance care planning discussed & documented, pt chose/unable to give Measure #412: Opioid Treatment Agreement: Documented signed opioid trtmnt agreemnt min once during opioid trtmnt Measure #408: Opioid Therapy Follow-up Evaluation: Patient had f/u eval minimum every 3 months during opioid therapy Measure #317: Preventitive Care & Scrn High Bld Press & F/U: Normal blood pressure, f/u not required Measure #128: Body Mass Index (BMI) Screening & Follow-up: BMI documented ABOVE normal parameters - f/u documented Measure #131: Pain Assessment & Follow-up: Pain positive & plan documented, Follow-up scheduled Measure #431: Unhealthy Alcohol Use Preventative Care & Scrn: Patient not identified as an unhealthy alcohol user PQRS Narrative: Smoking Status Former smoker Do You Want the Pneumonia No Vaccine AT THIS TIME? Narcotic Agreement Date Signed 05/24/16 Blood Pressure 119/85 Pain Intensity [Bilateral 8 Lower Back] Scale Used Numeric (1 - 10) Hx Alcohol Use (MH) Yes: RARE Home Medications: Ambulatory Orders Omeprazole [PriLOSEC] 20 mg PO DAILY PRN 12/19/15 Ibuprofen [Motrin] 800 mg PO TID PRN #90 tab 10/22/17 Acetaminophen Tab [Tylenol] 1,000 mg PO Q12HR PRN tab 02/26/18 oxyCODONE HCL 20 mg PO Q8H PRN 30 Days #90 tab 04/08/18 oxyCODONE HCL 20 mg PO Q8HR PRN #90 tab 04/08/18 Controlled Substance Measures - Controlled Substance Measures Is patient prescribed a controlled substance at discharge?: Yes When asked, does pt state using other controlled substances?: No If prescribed controlled substance>3 days was MAPS reviewed?: Yes If Rx opioid, was Start Talking consent form obtained?: Yes If opioid is for acute pain is fill amount 7 days or less?: No Was information provided regarding opioid addiction?: Yes
== END | disposition home or self-care (01) ==
LOC: PNWHC3 11:43
PROVIDERS: ATTEND Specialist
DX: G89.29 Other chronic pain (principal); M54.5 Low back pain; M51.36 Other intervertebral disc degeneration, lumbar region; M47.816 Spondylosis without myelopathy or radiculopathy, lumbar region; M46.86 Other specified inflammatory spondylopathies, lumbar region; C32.9 Malignant neoplasm of larynx, unspecified; F11.90 Opioid use, unspecified, uncomplicated; Z98.890 Other specified postprocedural states; Z79.1 Long term (current) use of non-steroidal anti-inflammatories (NSAID); Z92.21 Personal history of antineoplastic chemotherapy; Z92.3 Personal history of irradiation; Z93.0 Tracheostomy status; Z87.891 Personal history of nicotine dependence; Z71.89 Other specified counseling
CPT/HCPCS: 99211

== ENCOUNTER → 2018-05-27 | Outpatient (CLI) | payer MEDICARE ==
[2018-05-27 13:07] VITALS: BP 119/81; PULSE 68; RESP 16
--- NOTE | 2018-05-27 13:42 | P.PN ---
Subjective Progress Note Date: 05/27/18 This is follow-up visit for this patient with a history of severe and chronic low back pain secondary to lumbar degenerative disc diseases , lumbar spondylosis with facet arthropathy, We have done interventional pain procedures lumbar epidural steroid injection patient gets her term benefit from it, only 2 days of pain relief, and we have done radiofrequency ablation of the medial branch lumbar area . Patients currently on oxycodone 20 mg every 8 hours, Motrin 800 mg every 8 hours , Patient denies any side effects of the medication, denies excessive drowsiness or sleepiness, denies suicidal ideation, and reports that the current pain medication is helping to control the pain ,and improve activity of daily living , he continued to have severe low back pain associated to numbness and tingling sensation in the lower extremities Patient denies any motor or sensory deficit , patient denies any fever or night sweats, denies any change in the bowel movements or urination Patient recently diagnosed with laryngeal cancer, status post radiation therapy to the larynex and he received chemotherapy, and patient recently had tracheostomy done Because he had stridor Patient had MRI of the lumbar spine done previously and it showed patient had an L5-S1 disc , and L4 5 lumbar facet arthropathy Physical Examinations : 1-Constitutional : Cooperative , not in acute distress . 2-HEENT : nech ; supple , tracheostomy in place . 3- Respiratory : Chest clear to auscultations Bilaterally , no wheezing , no Rhonchi . 4- Cardiovascular : regular rate and rhythem , S1 , S2 , no S3 , no S4. 5- Gastrointestinal : abdomen soft no tenderness , bowel sounds positive all four quadrents , no organomegally . 6- Genitourinary : Defferred . 7- neurologic: Cranial nerve II to XII intact , no focal neurological deffecit . 8- Psychatric: alert , oriented X 3 , appropriate affect , intact judgment and insight . 9- Lymphatic : no Lymphadenopathy . 10- Musculoskeltal : exams of the Lumber spine =motor strength lower extremities ,thigh and legs .5/5 deep tendon reflexes : normal Knee Jerk , normal ankle Jerk . lumber facet Loading Test positive strait leg raising test positive at 30 degree , RT ,LT , Fabere test positive RT and positive LT . Range of motion: Range of motion in flexion of the lumbar spine 30 degrees Range of motion range of motion of extension of the lumbar spine 10 Sever tenderness over the Sacroiliac joint on the Right , and Left side Assessment and plan = Chronic low back pain secondary to lumbar degenerative disc disease , lumbar spondylosis with facet arthropathy without myelopathy Laryngeal cancer , status post chemo and radiation concurrently he had tracheostomy chronic and current use of high-risk medication (Opioids). The patient was counseled about risk of opioid use, psychological risk associated with opioids and was orally counseled to not overuse , divert,or sell dictations to take medications as prescribed only , and to restore medication in safe location , the patient counseled against driving while using narcotic medications , and also not to use alcohol or any illicit recreational drugs, patient's verbalized understanding that the lack of compliance will result in failure to renew narcotic prescription, and possible discharge from the clinic - diagnoses, prognosis, and treatment options including but not limited to physical therapy, surgical interventions, interventional therapies , and medication management including narcotics and adjuvant medication were discussed with the patient and all the questions answered Prescription refill for oxycodone 20 mg every 8 hours dispense 90 with 1 refill, Motrin 800 mg every 8 hours when necessary MAPS reviewed and it was appropriate, , patient signed narcotic agreement ( renewed ) Patient currently is not a candidate for interventional pain management until he finished radiation therapy of the laryngeal cancer PQRS Measure Charge Sheet Measure #130: Documentation of Current Meds in Medical Chart: Patient's medications documented in chart Measure #226: Tobacco Use: Screen & Cessation Intervention: Pt not a tobacco user Measure #111: Pneumonia Vaccination: Pneumococcal vaccine NOT administered or previously given Measure #47: Advance Care Plan: Advance care planning discussed & documented, pt chose/unable to give Measure #412: Opioid Treatment Agreement: Documented signed opioid trtmnt agreemnt min once during opioid trtmnt Measure #408: Opioid Therapy Follow-up Evaluation: Patient had f/u eval minimum every 3 months during opioid therapy Measure #317: Preventitive Care & Scrn High Bld Press & F/U: Normal blood pressure, f/u not required ( 119/81 ) Measure #128: Body Mass Index (BMI) Screening & Follow-up: BMI documented ABOVE normal parameters (28.4 )- f/u documented Measure #131: Pain Assessment & Follow-up: Pain positive & plan documented, Follow-up scheduled Measure #431: Unhealthy Alcohol Use Preventative Care & Scrn: Patient not identified as an unhealthy alcohol user PQRS Narrative: Home Medications: Ambulatory Orders Omeprazole [PriLOSEC] 20 mg PO DAILY PRN 12/19/15 Ibuprofen [Motrin] 800 mg PO TID PRN #90 tab 10/22/17 Acetaminophen Tab [Tylenol] 1,000 mg PO Q12HR PRN tab 02/26/18 oxyCODONE HCL 20 mg PO Q8H PRN 30 Days #90 tab 04/08/18 oxyCODONE HCL 20 mg PO Q8HR PRN #90 tab 04/08/18 - Controlled Substance Measures Is patient prescribed a controlled substance at discharge?: Yes When asked, does pt state using other controlled substances?: No If prescribed controlled substance>3 days was MAPS reviewed?: Yes If Rx opioid, was Start Talking consent form obtained?: Yes If opioid is for acute pain is fill amount 7 days or less?: No Was information provided regarding opioid addiction?: Yes Objective - Vital Signs Vital signs: Vital Signs Temp Pulse 68 05/27/18 13:00 Resp 16 05/27/18 13:00 BP 119/81 05/27/18 13:00 Pulse Ox 98 05/27/18 13:00 Intake & Output 05/26/18 05/27/18 05/27/18 18:59 06:59 18:59 Weight 97.522 kg
== END ==
LOC: PNWHC3 12:26
PROVIDERS: ATTEND Specialist
DX: G89.29 Other chronic pain (principal); M51.36 Other intervertebral disc degeneration, lumbar region; M47.816 Spondylosis without myelopathy or radiculopathy, lumbar region; M46.96 Unspecified inflammatory spondylopathy, lumbar region; C32.9 Malignant neoplasm of larynx, unspecified; Z98.890 Other specified postprocedural states; Z92.21 Personal history of antineoplastic chemotherapy; Z79.891 Long term (current) use of opiate analgesic; Z79.1 Long term (current) use of non-steroidal anti-inflammatories (NSAID)
CPT/HCPCS: 99211

== ENCOUNTER → 2018-07-22 | Outpatient (CLI) | payer MEDICARE ==
[2018-07-22 11:39] VITALS: BP 133/72; PULSE 54; RESP 20; TEMP 98.7
--- NOTE | 2018-07-22 11:59 | P.PAINPG ---
Subjective Progress Note Date: 07/22/18 This is follow-up visit for this patient with a history of severe and chronic low back pain secondary to lumbar degenerative disc diseases , lumbar spondylosis with facet arthropathy, We have done interventional pain procedures lumbar epidural steroid injection patient gets her term benefit from it, only 2 days of pain relief, and we have done radiofrequency ablation of the medial branch lumbar area . Patients currently on oxycodone 20 mg every 8 hours, Motrin 800 mg every 8 hours , Patient denies any side effects of the medication, denies excessive drowsiness or sleepiness, denies suicidal ideation, and reports that the current pain medication is helping to control the pain ,and improve activity of daily living , he continued to have severe low back pain associated to numbness and tingling sensation in the lower extremities Patient denies any motor or sensory deficit , patient denies any fever or night sweats, denies any change in the bowel movements or urination Patient recently diagnosed with laryngeal cancer, and he is getting radiation therapy to the larynex and also is getting chemotherapy, and patient recently had tracheostomy done Because he had stridor Patient had MRI of the lumbar spine done previously and it showed patient had an L5-S1 disc , and L4 5 lumbar facet arthropathy Physical Examinations : 1-Constitutional : Cooperative , not in acute distress . 2-HEENT : nech ; supple , tracheostomy in place . 3- Respiratory : Chest clear to auscultations Bilaterally , no wheezing , no Rhonchi . 4- Cardiovascular : regular rate and rhythem , S1 , S2 , no S3 , no S4. 5- Gastrointestinal : abdomen soft no tenderness , bowel sounds positive all four quadrents , no organomegally . 6- Genitourinary : Defferred . 7- neurologic: Cranial nerve II to XII intact , no focal neurological deffecit . 8- Psychatric: alert , oriented X 3 , appropriate affect , intact judgment and insight . 9- Lymphatic : no Lymphadenopathy . 10- Musculoskeltal : exams of the Lumber spine =motor strength lower extremities ,thigh and legs .5/5 deep tendon reflexes : normal Knee Jerk , normal ankle Jerk . lumber facet Loading Test positive strait leg raising test positive at 30 degree , RT ,LT , Fabere test positive RT and positive LT . Range of motion: Range of motion in flexion of the lumbar spine 30 degrees Range of motion range of motion of extension of the lumbar spine 10 Assessment and plan = Chronic low back pain secondary to lumbar degenerative disc disease , lumbar spondylosis with facet arthropathy without myelopathy Laryngeal cancer , status post chemo and radiation concurrently he had tracheostomy chronic and current use of high-risk medication (Opioids). The patient was counseled about risk of opioid use, psychological risk associated with opioids and was orally counseled to not overuse , divert,or sell dictations to take medications as prescribed only , and to restore medication in safe location , the patient counseled against driving while using narcotic medications , and also not to use alcohol or any illicit recreational drugs, patient's verbalized understanding that the lack of compliance will result in failure to renew narcotic prescription, and possible discharge from the clinic - diagnoses, prognosis, and treatment options including but not limited to physical therapy, surgical interventions, interventional therapies , and medication management including narcotics and adjuvant medication were discussed with the patient and all the questions answered Prescription refill for oxycodone 20 mg every 8 hours dispense 90 with 1 refill, MAPS reviewed and it was appropriate, ,UDS ordered today Patient currently is not a candidate for interventional pain management until he finished radiation therapy of the laryngeal cancer Objective - Vital Signs Vital signs: Vital Signs Temp 98.7 F 07/22/18 11:31 Pulse 54 L 07/22/18 11:31 Resp 20 07/22/18 11:31 BP 133/72 07/22/18 11:31 Pulse Ox Intake & Output 07/21/18 07/22/18 07/22/18 18:59 06:59 18:59 Weight 98.43 kg PQRS Measure Charge Sheet Measure #130: Documentation of Current Meds in Medical Chart: Patient's medications documented in chart Measure #226: Tobacco Use: Screen & Cessation Intervention: Pt not a tobacco user Measure #111: Pneumonia Vaccination: Pneumococcal vaccine administered or previously received Measure #47: Advance Care Plan: Advance care planning discussed & documented, pt chose/unable to give Measure #412: Opioid Treatment Agreement: Documented signed opioid trtmnt agreemnt min once during opioid trtmnt Measure #408: Opioid Therapy Follow-up Evaluation: Patient had f/u eval minimum every 3 months during opioid therapy Measure #317: Preventitive Care & Scrn High Bld Press & F/U: Normal blood pressure, f/u not required Measure #128: Body Mass Index (BMI) Screening & Follow-up: BMI documented ABOVE normal parameters - f/u documented Measure #131: Pain Assessment & Follow-up: Pain positive & plan documented, Follow-up scheduled Measure #431: Unhealthy Alcohol Use Preventative Care & Scrn: Patient not identified as an unhealthy alcohol user PQRS Narrative: Smoking Status Former smoker Narcotic Agreement Date Signed 12/17/17 Blood Pressure 133/72 Pain Intensity [Lower Back] 6 Scale Used Numeric (1 - 10) Hx Alcohol Use (MH) Yes: RARE Home Medications: Ambulatory Orders Omeprazole [PriLOSEC] 20 mg PO DAILY PRN 12/19/15 Ibuprofen [Motrin] 800 mg PO TID PRN #90 tab 05/27/18 oxyCODONE HCL 20 mg PO Q8H PRN 30 Days #90 tab 07/22/18 oxyCODONE HCL 20 mg PO Q8H PRN 30 Days #90 tab 07/22/18 Controlled Substance Measures - Controlled Substance Measures Is patient prescribed a controlled substance at discharge?: Yes When asked, does pt state using other controlled substances?: No If prescribed controlled substance>3 days was MAPS reviewed?: Yes If Rx opioid, was Start Talking consent form obtained?: Yes If opioid is for acute pain is fill amount 7 days or less?: No Was information provided regarding opioid addiction?: Yes
== END ==
LOC: PNWHC3 11:19
PROVIDERS: ATTEND Specialist
DX: G89.29 Other chronic pain (principal); M51.36 Other intervertebral disc degeneration, lumbar region; M47.816 Spondylosis without myelopathy or radiculopathy, lumbar region; M46.96 Unspecified inflammatory spondylopathy, lumbar region; Z79.891 Long term (current) use of opiate analgesic; Z79.899 Other long term (current) drug therapy; Z51.81 Encounter for therapeutic drug level monitoring; Z85.21 Personal history of malignant neoplasm of larynx; Z92.3 Personal history of irradiation; Z92.21 Personal history of antineoplastic chemotherapy
CPT/HCPCS: 80307; G0482; G0463; 99211

== ENCOUNTER → 2018-09-16 | Outpatient (CLI) | payer MEDICARE ==
[2018-09-16 13:22] VITALS: BP 178/77; PULSE 68; RESP 18
--- NOTE | 2018-09-16 21:00 | P.PN ---
Subjective Progress Note Date: 09/16/18 This is follow-up visit for this patient with a history of severe and chronic low back pain secondary to lumbar degenerative disc diseases , lumbar spondylosis with facet arthropathy, We have done interventional pain procedures lumbar epidural steroid injection patient gets short term benefit from it, only 2 days of pain relief, and we have done radiofrequency ablation of the medial branch lumbar area .Patients currently on oxycodone 20 mg every 8 hours, Motrin 800 mg every 8 hours , Patient denies any side effects of the medication, denies excessive drowsiness or sleepiness, denies suicidal ideation, and reports that the current pain medication is helping to control the pain ,and improve activity of daily living , he continued to have severe low back pain associated to numbness and tingling sensation in the lower extremities Patient denies any motor or sensory deficit , patient denies any fever or night sweats, denies any change in the bowel movements or urination Patient recently diagnosed with laryngeal cancer, and he is getting radiation therapy to the larynex and also is getting chemotherapy, and patient recently had tracheostomy done Because he had stridor Patient had MRI of the lumbar spine done previously and it showed patient had an L5-S1 disc , and L4 5 lumbar facet arthropathy Physical Examinations : 1-Constitutional : Cooperative , not in acute distress . 2-HEENT : nech ; supple , tracheostomy in place . 3- Respiratory : Chest clear to auscultations Bilaterally , no wheezing , no Rhonchi . 4- Cardiovascular : regular rate and rhythem , S1 , S2 , no S3 , no S4. 5- Gastrointestinal : abdomen soft no tenderness , bowel sounds positive all four quadrents , no organomegally . 6- Genitourinary : Defferred . 7- neurologic: Cranial nerve II to XII intact , no focal neurological deffecit . 8- Psychatric: alert , oriented X 3 , appropriate affect , intact judgment and insight . 9- Lymphatic : no Lymphadenopathy . 10- Musculoskeltal : exams of the Lumber spine =motor strength lower extremities ,thigh and legs .5/5 deep tendon reflexes : normal Knee Jerk , normal ankle Jerk . lumber facet Loading Test positive strait leg raising test positive at 30 degree , RT ,LT , Fabere test positive RT and positive LT . Range of motion: Range of motion in flexion of the lumbar spine 30 degrees Range of motion range of motion of extension of the lumbar spine 10 Assessment and plan = Chronic low back pain secondary to lumbar degenerative disc disease , lumbar spondylosis with facet arthropathy without myelopathy Laryngeal cancer , status post chemo and radiation concurrently he had tracheostomy chronic and current use of high-risk medication (Opioids). The patient was counseled about risk of opioid use, psychological risk associated with opioids and was orally counseled to not overuse , divert,or sell dictations to take medications as prescribed only , and to restore medication in safe location , the patient counseled against driving while using narcotic medications, and also not to use alcohol or any illicit recreational drugs, patient's verbalized understanding that the lack of compliance will result in failure to renew narcotic prescription, and possible discharge from the clinic - diagnoses, prognosis, and treatment options including but not limited to physical therapy, surgical interventions, interventional therapies , and medication management including narcotics and adjuvant medication were discussed with the patient and all the questions answered Prescription refill for oxycodone 20 mg every 8 hours dispense 90 with 1 refill, MAPS reviewed and it was appropriate, ,UDS reviewed and it was appropriate Patient currently is not a candidate for interventional pain management until he finished radiation therapy of the laryngeal cancer PQRS Measure Charge Sheet Measure #130: Documentation of Current Meds in Medical Chart: Patient's medications documented in chart Measure #226: Tobacco Use: Screen & Cessation Intervention: Pt not a tobacco user Measure #111: Pneumonia Vaccination: Pneumococcal vaccine administered or previously received Measure #47: Advance Care Plan: Advance care planning discussed & documented, pt chose/unable to give Measure #412: Opioid Treatment Agreement: Documented signed opioid trtmnt agreemnt min once during opioid trtmnt Measure #408: Opioid Therapy Follow-up Evaluation: Patient had f/u eval minimum every 3 months during opioid therapy Measure #317: Preventitive Care & Scrn High Bld Press & F/U: Normal blood pressure, f/u not required Measure #128: Body Mass Index (BMI) Screening & Follow-up: BMI documented ABOVE normal parameters - f/u documented Measure #131: Pain Assessment & Follow-up: Pain positive & plan documented, Follow-up scheduled Measure #431: Unhealthy Alcohol Use Preventative Care & Scrn: Patient not identified as an unhealthy alcohol user PQRS Narrative: - Controlled Substance Measures Is patient prescribed a controlled substance at discharge?: Yes When asked, does pt state using other controlled substances?: No If prescribed controlled substance>3 days was MAPS reviewed?: Yes If Rx opioid, was Start Talking consent form obtained?: Yes If opioid is for acute pain is fill amount 7 days or less?: No Was information provided regarding opioid addiction?: Yes Objective - Vital Signs Vital signs: Vital Signs Temp Pulse 68 09/16/18 13:15 Resp 18 09/16/18 13:15 BP 178/77 09/16/18 13:15 Pulse Ox 96 09/16/18 13:15 Intake & Output 09/16/18 09/16/18 09/17/18 06:59 18:59 06:59 Weight 98.43 kg
== END | disposition home or self-care (01) ==
LOC: PNWHC3 13:07
PROVIDERS: ATTEND Specialist
DX: G89.29 Other chronic pain (principal); M51.36 Other intervertebral disc degeneration, lumbar region; M47.816 Spondylosis without myelopathy or radiculopathy, lumbar region; M46.96 Unspecified inflammatory spondylopathy, lumbar region; C32.9 Malignant neoplasm of larynx, unspecified; Z92.21 Personal history of antineoplastic chemotherapy; Z92.3 Personal history of irradiation; Z98.890 Other specified postprocedural states; Z79.891 Long term (current) use of opiate analgesic
CPT/HCPCS: 99211

== ENCOUNTER → 2018-11-20 | Outpatient (CLI) | payer MEDICARE ==
[2018-11-20 11:31] VITALS: BP 140/71; PULSE 73; RESP 16
--- NOTE | 2018-11-20 12:22 | P.PAINPG ---
Subjective Progress Note Date: 11/20/18 This is follow-up visit for this patient with a history of severe and chronic low back pain secondary to lumbar degenerative disc diseases , lumbar spondylosis with facet arthropathy, We have done interventional pain procedures radiofrequency ablation of the medial branch lumbar area . Patients currently on oxycodone 20 mg every 8 hours, Motrin 800 mg every 8 hours , Patient denies any side effects of the medication, denies excessive drowsiness or sleepiness, denies suicidal ideation, and reports that the current pain medication is helping to control the pain ,and improve activity of daily living , he continued to have severe low back pain associated to numbness and tingling sensation in the lower extremities Patient denies any motor or sensory deficit , patient denies any fever or night sweats, denies any change in the bowel movements or urination Patient was diagnosed with laryngeal cancer, and he is getting radiation therapy to the larynex and also is getting chemotherapy, and patient recently had tracheostomy done Because he had stridor Patient had MRI of the lumbar spine done previously and it showed patient had an L5-S1 disc , and L4 5 lumbar facet arthropathy Physical Examinations : 1-Constitutional : Cooperative , not in acute distress . 2-HEENT : nech ; supple , tracheostomy in place . 3- Respiratory : Chest clear to auscultations Bilaterally , no wheezing , no Rhonchi . 4- Cardiovascular : regular rate and rhythem , S1 , S2 , no S3 , no S4. 5- Gastrointestinal : abdomen soft no tenderness , bowel sounds positive all four quadrents , no organomegally . 6- Genitourinary : Defferred . 7- neurologic: Cranial nerve II to XII intact , no focal neurological deffecit . 8- Psychatric: alert , oriented X 3 , appropriate affect , intact judgment and insight . 9- Lymphatic : no Lymphadenopathy . 10- Musculoskeltal : exams of the Lumber spine =motor strength lower extremities ,thigh and legs .5/5 deep tendon reflexes : normal Knee Jerk , normal ankle Jerk . lumber facet Loading Test positive strait leg raising test positive at 30 degree , RT ,LT , Fabere test positive RT and positive LT . Range of motion: Range of motion in flexion of the lumbar spine 30 degrees Range of motion range of motion of extension of the lumbar spine 10 Assessment and plan = Chronic low back pain secondary to lumbar degenerative disc disease , lumbar spondylosis with facet arthropathy without myelopathy Laryngeal cancer , status post chemo and radiation concurrently he had tracheostomy chronic and current use of high-risk medication (Opioids). The patient was counseled about risk of opioid use, psychological risk associated with opioids and was orally counseled to not overuse , divert,or sell dictations to take medications as prescribed only , and to restore medication in safe location , the patient counseled against driving while using narcotic medications, and also not to use alcohol or any illicit recreational drugs, patient's verbalized understanding that the lack of compliance will result in failure to renew narcotic prescription, and possible discharge from the clinic - diagnoses, prognosis, and treatment options including but not limited to physical therapy, surgical interventions, interventional therapies , and medication management including narcotics and adjuvant medication w ere discussed with the patient and all the questions answered Prescription refill for oxycodone 20 mg every 8 hours dispense 90 with 1 refill, MAPS reviewed and it was appropriate, Patient currently is not a candidate for interventional pain management until he finished radiation therapy of the laryngeal cancer, the future we can do RFA of the medial branch lumbar area Objective - Vital Signs Vital signs: Vital Signs Temp Pulse 73 11/20/18 11:27 Resp 16 11/20/18 11:27 BP 140/71 11/20/18 11:27 Pulse Ox Intake & Output 11/19/18 11/20/18 11/20/18 18:59 06:59 18:59 Weight 102.058 kg PQRS Measure Charge Sheet Measure #130: Documentation of Current Meds in Medical Chart: Patient's medications documented in chart Measure #226: Tobacco Use: Screen & Cessation Intervention: Pt not a tobacco user Measure #111: Pneumonia Vaccination: Pneumococcal vaccine administered or previously received Measure #47: Advance Care Plan: Advance care planning discussed & documented, pt chose/unable to give Measure #412: Opioid Treatment Agreement: Documented signed opioid trtmnt agreemnt min once during opioid trtmnt Measure #408: Opioid Therapy Follow-up Evaluation: Patient had f/u eval minimum every 3 months during opioid therapy Measure #317: Preventitive Care & Scrn High Bld Press & F/U: Pre-hypertensive or hypertensive BP documented, pt will f/u with PCP Measure #128: Body Mass Index (BMI) Screening & Follow-up: BMI documented ABOVE normal parameters - f/u documented Measure #131: Pain Assessment & Follow-up: Pain positive & plan documented, Follow-up scheduled Measure #431: Unhealthy Alcohol Use Preventative Care & Scrn: Patient not identified as an unhealthy alcohol user PQRS Narrative: Smoking Status Former smoker Narcotic Agreement Date Signed 12/17/17 Blood Pressure 140/71 Pain Intensity [Left Lower 7 Back] Scale Used Numeric (1 - 10) Hx Alcohol Use (MH) Yes: RARE Home Medications: Ambulatory Orders Omeprazole [PriLOSEC] 20 mg PO DAILY PRN 12/19/15 Ibuprofen [Motrin] 800 mg PO TID PRN #90 tab 05/27/18 oxyCODONE HCL [oxyCODONE HCL (IR)] 20 mg PO Q8H PRN 30 Days #90 tab 07/22/18 Controlled Substance Measures - Controlled Substance Measures Is patient prescribed a controlled substance at discharge?: Yes When asked, does pt state using other controlled substances?: No If prescribed controlled substance>3 days was MAPS reviewed?: Yes If Rx opioid, was Start Talking consent form obtained?: Yes If opioid is for acute pain is fill amount 7 days or less?: No Was information provided regarding opioid addiction?: Yes
== END | disposition home or self-care (01) ==
LOC: PNWHC3 11:16
PROVIDERS: ATTEND Specialist
DX: G89.29 Other chronic pain (principal); M51.36 Other intervertebral disc degeneration, lumbar region; M47.816 Spondylosis without myelopathy or radiculopathy, lumbar region; M46.96 Unspecified inflammatory spondylopathy, lumbar region; C32.9 Malignant neoplasm of larynx, unspecified; Z87.891 Personal history of nicotine dependence; Z92.21 Personal history of antineoplastic chemotherapy; Z92.3 Personal history of irradiation; Z93.0 Tracheostomy status; Z98.890 Other specified postprocedural states; Z79.891 Long term (current) use of opiate analgesic
CPT/HCPCS: 99211

== ENCOUNTER → 2019-02-02 | Outpatient (CLI) | payer MEDICARE ==
[2019-02-02 15:00] VITALS: BP 132/79; PULSE 76; RESP 18
--- NOTE | 2019-02-05 05:40 | P.PN ---
Subjective Progress Note Date: 02/02/19 This is follow-up visit for this patient with a history of severe and chronic low back pain secondary to lumbar degenerative disc diseases , lumbar spondylosis with facet arthropathy, We have done interventional pain procedures radiofrequency ablation of the medial branch lumbar area . Patients currently on oxycodone 20 mg every 8 hours, Motrin 800 mg every 8 hours , Patient denies any side effects of the medication, denies excessive drowsiness or sleepiness, denies suicidal ideation, and reports that the current pain medication is helping to control the pain ,and improve activity of daily living , he continued to have severe low back pain associated to numbness and tingling sensation in the lower extremities Patient denies any motor or sensory deficit , patient denies any fever or night sweats, denies any change in the bowel movements or urination Patient was diagnosed with laryngeal cancer, and he is getting radiation therapy to the [place] ,status post chemo, patient still had tracheostomy in place Patient had MRI of the lumbar spine done previously and it showed patient had an L5-S1 disc , and L4 5 lumbar facet arthropathy Physical Examinations : -Constitutional : Cooperative , not in acute distress . -HEENT : nech ; supple , tracheostomy in place . - Respiratory : Chest clear to auscultations Bilaterally , no wheezing , no Rhonchi . - Cardiovascular : regular rate and rhythem , S1 , S2 , no S3 , no S4. - Gastrointestinal : abdomen soft no tenderness , bowel sounds positive all four quadrents , no organomegally . - Genitourinary : Defferred . - neurologic: Cranial nerve II to XII intact , no focal neurological deffecit . - Psychatric: alert , oriented X 3 , appropriate affect , intact judgment and insight . - Lymphatic : no Lymphadenopathy . - Musculoskeltal : exams of the Lumber spine =motor strength lower extremities ,thigh and legs .5/5 deep tendon reflexes : normal Knee Jerk , normal ankle Jerk . lumber facet Loading Test positive strait leg raising test positive at 30 degree , RT ,LT , Fabere test positive RT and positive LT . Range of motion: Range of motion in flexion of the lumbar spine 30 degrees Range of motion range of motion of extension of the lumbar spine 10 Assessment and plan = Chronic low back pain secondary to lumbar degenerative disc disease , lumbar spondylosis with facet arthropathy without myelopathy Laryngeal cancer , status post chemo and radiation,still had tracheostomy chronic and current use of high-risk medication (Opioids). The patient was counseled about risk of opioid use, psychological risk associated with opioids and was orally counseled to not overuse , divert,or sell dictations to take medications as prescribed only , and to restore medication in safe location , the patient counseled against driving while using narcotic medications, and also not to use alcohol or any illicit recreational drugs, patient's verbalized understanding that the lack of compliance will result in failure to renew narcotic prescription, and possible discharge from the clinic - diagnoses, prognosis, and treatment options including but not limited to physical therapy, surgical interventions, interventional therapies , and medication management including narcotics and adjuvant medication were discussed with the patient and all the questions answered Prescription refill for oxycodone 20 mg every 8 hours dispense 90 with 1 refill, MAPS reviewed and it was appropriate, Patient currently is not a candidate for interventional pain management until he finished radiation therapy of the laryngeal cancer, the future we can do RFA of the medial branch lumbar area PQRS Measure Charge Sheet Measure #130: Documentation of Current Meds in Medical Chart: Patient's medications documented in chart Measure #226: Tobacco Use: Screen & Cessation Intervention: Pt not a tobacco user Measure #111: Pneumonia Vaccination: Pneumococcal vaccine administered or previously received Measure #47: Advance Care Plan: Advance care planning discussed & documented, pt chose/unable to give Measure #412: Opioid Treatment Agreement: Documented signed opioid trtmnt agreemnt min once during opioid trtmnt Measure #408: Opioid Therapy Follow-up Evaluation: Patient had f/u eval minimum every 3 months during opioid therapy Measure #317: Preventitive Care & Scrn High Bld Press & F/U: 132/79 BP documented, pt will f/u with PCP Measure #128: Body Mass Index (BMI) Screening & Follow-up: BMI documented ABOVE normal parameters - f/u documented Measure #131: Pain Assessment & Follow-up: Pain positive & plan documented, Follow-up scheduled Measure #431: Unhealthy Alcohol Use Preventative Care & Scrn: Patient not identified as an unhealthy alcohol user PQRS Narrative: - Controlled Substance Measures Is patient prescribed a controlled substance at discharge?: Yes When asked, does pt state using other controlled substances?: No If prescribed controlled substance>3 days was MAPS reviewed?: Yes If Rx opioid, was Start Talking consent form obtained?: Yes If opioid is for acute pain is fill amount 7 days or less?: No Was information provided regarding opioid addiction?: Yes Objective - Vital Signs Vital signs: Vital Signs Temp Pulse 76 02/02/19 14:54 Resp 18 02/02/19 14:54 BP 132/79 02/02/19 14:54 Pulse Ox 97 02/02/19 14:54
== END | disposition home or self-care (01) ==
LOC: PNWHC3 13:53
PROVIDERS: ATTEND Specialist
DX: G89.29 Other chronic pain (principal); M51.36 Other intervertebral disc degeneration, lumbar region; M47.816 Spondylosis without myelopathy or radiculopathy, lumbar region; M46.96 Unspecified inflammatory spondylopathy, lumbar region; C32.9 Malignant neoplasm of larynx, unspecified; Z92.21 Personal history of antineoplastic chemotherapy; Z79.891 Long term (current) use of opiate analgesic; Z93.0 Tracheostomy status
CPT/HCPCS: 99211

== ENCOUNTER → 2019-03-30 | Outpatient (CLI) | payer MEDICARE ==
[2019-03-30 12:15] VITALS: BP 131/61; PULSE 67; RESP 18
--- NOTE | 2019-03-30 12:39 | P.PN ---
Progress Note - Text Progress Note Date: 03/30/19 Patient returns for follow-up visit with a history of laryngeal cancer status post tracheostomy. He is scheduled to undergo a radical neck dissection laryngectomy glossectomy and partial tracheal resection with Dr. Thanh Guerrero at [facility]. The surgery scheduled for April 23, and he'll require hospitalization for 2-3 weeks. He is concerned about how his pain will be managed. I discussed with him that they have a inpatient pain service and they can continue his regular home medication and give as needed medication for acute postoperative pain. Pain today is a 7 out of 10 in severity. This worse over the last few days with weather changes. Mostly in his low back and some radicular pain into his lower extremity's. Medication help with performing ADLs, he is unable to care for herself if he is not utilized oxycodone. Patient denies adverse drug effects from medications. Today, pt denies new-onset weakness, bowel/bladder incontinence, or any other signs or symptoms of cauda equina syndrome. There are no signs of acute intoxication, and no indications of medication diversion or overuse. In addition to above, 13-point review of systems is also negative for chest pain, shortness of breath, changes in vision, changes in hearing, new onset weakness, abdominal pain, diarrhea, extreme fatigue, malaise, fever, skin changes, homicidal or suicidal ideation, or bowel or bladder incontinence. Vital Signs: Reviewed in EMR Gen: WDWN, AAOx3, NAD HEENT: Tracheostomy with patent stoma Pulm: resp unlabored Abd: soft, NT, ND Neck: supple, trachea midline ROM in flexion lumbar spine: reduced ROM in extension lumbar spine: reduced Lumbar paravertebral tenderness: + bilateral Neuro: CN II-XII grossly intact, muscle strength lower extremities PRESERVED Imaging: Reviewed in EMR Assessment: 1. lumbar spinal stenosis 2. lumbar spondylosis without myelopathy 3. chronic pain syndrome 4. Laryngeal cancer status post radiation therapy. Plan: 1. Explanation: Opioid and psychological risk scores were reviewed. Diagnoses, prognoses, and multiple treatment options including but not limited to physical therapy, interventional therapies, adjuvant medical therapies, narcotic medication therapies, and surgery were discussed with the patient and all questions were answered to the patient's satisfaction. 2. Opioid agreement: Patient has previously signed narcotic agreement, and was orally counseled to not overuse, abuse, divert, or cell medications, and to take them as prescribed by only 1 healthcare provider. The patient was also counseled to take medications as prescribed by only 1 healthcare provider and to store opioid medications in the safe and preferably locked location. Patient was also counseled not to drive while using narcotic medications and also to not use alcohol or any illicit or recreational drugs. The patient verbalized understanding that lack of compliance with any of the above and likely result in failure to renew narcotic prescriptions, possible discharge from the clinic, and possible legal ramifications thereafter if indicated. 3. Counseling: The patient was counseled extensively on BODY MASS INDEX, EXERCISE. Specifically, the patient was instructed regarding the importance of exercise in the context of both chronic pain and overall health. 4. Procedures: None at the moment. 5. Consultations: None 6. Investigations: UDS within the last 12 months is appropriate. 7. Medications: oxycodone 20 mg #90 with one refill; refilled Motrin. Maps was given to patient to show surgical team. 8. Dispo: Patient will follow up status post surgery at [facility] PQRS measures: 1-Patient's medications are documented in the chart. 2-Tobacco use is negative, counseling given 3-Patient has not had a pneumococcal vaccine. 4-Advanced care planning discussed, patient not eligible. 5-Opioid contract signed with the patient. 6-Pain positive, follow-up visit or procedure scheduled 7-Patient's blood pressure measured and documented, within normal limits. 8-Patient's weight was measured, and body mass index ABOVE the normal limits, and counseling was done. Patient instructed to follow up with PCP. 9-Patient WAS NOT identified as an unhealthy alcohol user.
== END ==
LOC: PNWHC3 11:27
PROVIDERS: ATTEND Anesthesiology
DX: G89.4 Chronic pain syndrome (principal); M48.061 Spinal stenosis, lumbar region without neurogenic claudication; M47.816 Spondylosis without myelopathy or radiculopathy, lumbar region; C32.9 Malignant neoplasm of larynx, unspecified; Z92.3 Personal history of irradiation; Z79.891 Long term (current) use of opiate analgesic; Z79.1 Long term (current) use of non-steroidal anti-inflammatories (NSAID)
CPT/HCPCS: 99211

== ENCOUNTER → 2019-05-25 | Outpatient (CLI) | payer MEDICARE ==
[2019-05-25 12:55] VITALS: BP 120/76; PULSE 80; RESP 16
--- NOTE | 2019-05-27 15:01 | P.PAINPG ---
Subjective Progress Note Date: 05/25/19 Patient returns for follow-up visit with a history of laryngeal cancer status post tracheostomy. He underwent radical neck dissection laryngectomy glossectomy and partial tracheal resection and muscle flap from right thigh with Dr. Thanh Guerrero at [facility] done on 04/23/2019. he reports he is been doing fairly well since the surgery, does not have a significant amount of neck pain. His pain is primarily located in his bilateral low back, does not radiate today, rated as 8/10. Medication help with performing ADLs, he denies adverse drug effects from medications. Today, pt denies new-onset weakness, bowel/bladder incontinence, or any other signs or symptoms of cauda equina syndrome. There are no signs of acute intoxication, and no indications of medication diversion or overuse.he is currently taking medications in liquid form through the G-tube, he would like to transition to by mouth soon as he is cleared from a surgical standpoint. In addition to above, 13-point review of systems is also negative for chest pain, shortness of breath, changes in vision, changes in hearing, new onset weakness, abdominal pain, diarrhea, extreme fatigue, malaise, fever, skin changes, homicidal or suicidal ideation, or bowel or bladder incontinence. Vital Signs: Reviewed in EMR Gen: WDWN, AAOx3, NAD, presents in wheelchair HEENT: Tracheostomy with patent stoma Pulm: resp unlabored Abd: ND musculoskeletalright thigh wound VAC present ROM in flexion lumbar spine: reduced ROM in extension lumbar spine: reduced Neuro: CN II-XII grossly intact Imaging: no new imaging Assessment: 1. lumbar spinal stenosis 2. lumbar spondylosis without myelopathy 3. chronic pain syndrome 4. Laryngeal cancer status post radiation therapy and surgery. Plan: 1. Opioid agreement: Patient has previously signed narcotic agreement 2. Procedures: None at the moment. 3. Investigations: UDS within the last 12 months is appropriate. 4. Medications: oxycodone liquid 20 mg every 8 [id number] mL's for 30 day supply, oxycodone 20 mg #90 by mouth for second month, as patient anticipates being able to swallow by then. patient was encouraged to take Tylenol. Patient has also had a gabapentin prescription from surgical team, advised to continue to take this. 5. Dispo: Patient will follow up in 8 weeks Objective - Vital Signs Vital signs: Vital Signs Temp Pulse 80 05/25/19 12:45 Resp 16 05/25/19 12:45 BP 120/76 05/25/19 12:45 Pulse Ox 96 05/25/19 12:45 PQRS Measure Charge Sheet Measure #130: Documentation of Current Meds in Medical Chart: Patient's medications documented in chart Measure #226: Tobacco Use: Screen & Cessation Intervention: Pt not a tobacco user Measure #47: Advance Care Plan: Advance care planning discussed & documented, pt chose/unable to give Measure #412: Opioid Treatment Agreement: Documented signed opioid trtmnt agreem nt min once during opioid trtmnt Measure #408: Opioid Therapy Follow-up Evaluation: Patient had f/u eval minimum every 3 months during opioid therapy Measure #317: Preventitive Care & Scrn High Bld Press & F/U: Normal blood pressure, f/u not required Measure #128: Body Mass Index (BMI) Screening & Follow-up: BMI documented within normal parameters Measure #131: Pain Assessment & Follow-up: Pain positive & plan documented, Follow-up scheduled Measure #431: Unhealthy Alcohol Use Preventative Care & Scrn: Patient not identified as an unhealthy alcohol user PQRS Narrative: Smoking Status Former smoker Narcotic Agreement Date Signed 05/25/19 Blood Pressure 120/76 Pain Intensity [Back] 8 Scale Used Numeric (1 - 10) Hx Alcohol Use (MH) Yes: RARE Home Medications: Ambulatory Orders Aspirin [Children's Aspirin] 81 mg PEG/G-TUBE DAILY 05/20/19 Calcium Citrate 1 applic PEG/G-TUBE DAILY 05/20/19 Doxazosin [Cardura] 1 mg PEG/G-TUBE DAILY 05/20/19 Gabapentin Liquid 6 ml PEG/G-TUBE HS 05/20/19 Oxycodone Liquid 20 ml PEG/G-TUBE Q6H 05/20/19 oxyCODONE HCL [oxyCODONE HCL (IR)] 20 mg PO Q8HR PRN 05/25/19 Controlled Substance Measures - Controlled Substance Measures Is patient prescribed a controlled substance at discharge?: Yes When asked, does pt state using other controlled substances?: No If prescribed controlled substance>3 days was MAPS reviewed?: Yes If Rx opioid, was Start Talking consent form obtained?: Yes If opioid is for acute pain is fill amount 7 days or less?: No Was information provided regarding opioid addiction?: Yes
== END | disposition home or self-care (01) ==
LOC: PNWHC3 12:07
PROVIDERS: ATTEND Anesthesiology
DX: G89.29 Other chronic pain (principal); M48.061 Spinal stenosis, lumbar region without neurogenic claudication; M47.26 Other spondylosis with radiculopathy, lumbar region; C32.9 Malignant neoplasm of larynx, unspecified; Z92.3 Personal history of irradiation; Z87.891 Personal history of nicotine dependence; Z98.890 Other specified postprocedural states; Z79.82 Long term (current) use of aspirin; Z79.891 Long term (current) use of opiate analgesic; Z79.899 Other long term (current) drug therapy
CPT/HCPCS: 99211

== ENCOUNTER → 2019-11-11 | Outpatient (CLI) | payer MEDICARE ==
--- NOTE | 2019-11-11 10:44 | P.PAINPG ---
Subjective Progress Note Date: 11/11/19 Mr. Romero was communicated with today via telemedicine through his daughter. He had a laryngectomy so he cannot talk and his daughter is helping communicate. He says his back is bothering mostly, vas 8/10 on good day, We did injections for him previously, they were helpful transiently. Despite the medication, he has VAS 8/10, when asked about this he reports it does help but at times it is worse. He stretches daily, he has been eating more, getting outside and doing activity. Objective - Vital Signs Vital signs: Intake & Output 11/10/19 11/11/19 11/11/19 18:59 06:59 18:59 Weight 108.862 kg - Exam GENERAL: Awake, alert, oriented, no distress HENT: atraumatic, normocephalic, trache in place, doesnt speak RESP: NO audible wheezing, no coughing CARDIO: Reg rate (per patient palpation), no edema ABDOMEN: Non tender (per patient), no distension CERVICAL SPINE: Range of motion preserved, Spurling Negative, surgical area healing well LUMBAR SPINE: Limited range of motion secondary to pain, pain with flexion and extension of the Lumbar spine. NEURO: Gait is Normal, Sensation in Lower ext normal (per patient) PSYCH: Cooperative, normal affect. Assessment and Plan Assessment: Lumbar radiculopathy lumbar DDD History of laryngeal cancer opioid dependence Plan: Discussed with patient and daughter the risks of using this medication especially with a continued VAS 8/10. The patient insists it is helping significantly. Denies any side effects. Would like to continue with the meds. PQRS Measure Charge Sheet Measure #130: Documentation of Current Meds in Medical Chart: Patient's medications documented in chart Measure #226: Tobacco Use: Screen & Cessation Intervention: Pt screened for tobacco use AND intervention given Measure #111: Pneumonia Vaccination: Pneumococcal vaccine NOT administered or previously given Measure #47: Advance Care Plan: Advance care planning discussed & documented, plan or surrogate given Measure #412: Opioid Treatment Agreement: Documented signed opioid trtmnt agreemnt min once during opioid trtmnt Measure #408: Opioid Therapy Follow-up Evaluation: Patient had f/u eval minimum every 3 months during opioid therapy Measure #317: Preventitive Care & Scrn High Bld Press & F/U: Blood pressure not documented, patient not eligible Measure #128: Body Mass Index (BMI) Screening & Follow-up: BMI documented within normal parameters Measure #131: Pain Assessment & Follow-up: Pain positive & plan documented Measure #431: Unhealthy Alcohol Use Preventative Care & Scrn: Patient not identified as an unhealthy alcohol user PQRS Narrative: Smoking Status Former smoker Narcotic Agreement Date Signed 05/25/19 Pain Intensity [Lower Back] 8 Hx Alcohol Use (MH) No Home Medications: Ambulatory Orders Ibuprofen [Motrin] 800 mg PO Q8H PRN #90 tab 10/06/19 oxyCODONE HCL [OxyCONTIN] 20 mg PO Q12H 11/10/19 Controlled Substance Measures - Controlled Substance Measures Is patient prescribed a controlled substance at discharge?: Yes When asked, does pt state using other controlled substances?: No If prescribed controlled substance>3 days was MAPS reviewed?: Yes If Rx opioid, was Start Talking consent form obtained?: Yes If opioid is for acute pain is fill amount 7 days or less?: No Was information provided regarding opioid addiction?: Yes
== END | disposition home or self-care (01) ==
LOC: PNWHC3 07:01
PROVIDERS: ATTEND Hospitalist
DX: Z53.9 Procedure and treatment not carried out, unspecified reason (principal)

== ENCOUNTER → 2019-12-09 | Outpatient (CLI) | payer MEDICARE ==
[2019-12-09 10:09] VITALS: BP 174/95; PULSE 53; RESP 16
--- NOTE | 2019-12-09 10:14 | P.PAINPG ---
Subjective Progress Note Date: 12/09/19 Patient returns for follow-up visit with a history of laryngeal cancer status post tracheostomy. He underwent radical neck dissection laryngectomy glossectomy and partial tracheal resection and muscle flap from right thigh with Dr. Thanh Guerrero at [facility] done on 04/23/2019. he reports he is been doing fairly well since the surgery, does not have a significant amount of neck pain. He recently underwent a computed tomography scan to check for cancer recurrence, he has been told he is cancer free. He states that he feels the best she has felt in almost 2 years. He continues to exercise. Today, His pain is primarily located in his bilateral low back, radiating to bilateral buttocks, right greater than left, rated as 4-5/10. Medication help with performing ADLs, he denies adverse drug effects from medications. Today, pt denies new-onset weakness, bowel/bladder incontinence, or any other signs or symptoms of cauda equina syndrome. There are no signs of acute intoxication, and no indications of medication diversion or overuse. In addition to above, 13-point review of systems is also negative for chest pain, shortness of breath, changes in vision, changes in hearing, new onset weakness, abdominal pain, diarrhea, extreme fatigue, malaise, fever, skin changes, homicidal or suicidal ideation, or bowel or bladder incontinence. Vital Signs: Reviewed in EMR Gen: WDWN, AAOx3, NAD, presents in wheelchair HEENT: Tracheostomy with patent stoma Pulm: resp unlabored Abd: ND musculoskeletal ROM in flexion lumbar spine: reduced ROM in extension lumbar spine: reduced Gait: Slow Neuro: CN II-XII grossly intact, slightly reduced sensation in right lateral leg Imaging: no new imaging Assessment: 1. lumbar spinal stenosis 2. lumbar spondylosis without myelopathy 3. chronic pain syndrome 4. Laryngeal cancer status post radiation therapy and surgery. Plan: 1. Opioid agreement: Patient has previously signed narcotic agreement and it is on file 2. Procedures: He has undergone multiple procedures in the past, but very short lasting benefit 3. Investigations: UDS sent today 4. Medications: oxycodone 20 mg #90 with one refill 5. Dispo: Patient will follow up in 8 weeks for medication management PQRS Measure Charge Sheet Measure #130: Documentation of Current Meds in Medical Chart: Patient's medications documented in chart Measure #226: Tobacco Use: Screen & Cessation Intervention: Pt not a tobacco user Measure #47: Advance Care Plan: Advance care planning discussed & documented, pt chose/unable to give Measure #412: Opioid Treatment Agreement: Documented signed opioid trtmnt agreemnt min once during opioid trtmnt Measure #408: Opioid Therapy Follow-up Evaluation: Patient had f/u eval minimum every 3 months during opioid therapy Measure #317: Preventitive Care & Scrn High Bld Press & F/U: Elevated blood pressure, follow-up with primary care physician Measure #128: Body Mass Index (BMI) Screening & Follow-up: BMI documented and is above normal, follow-up with primary care physician Measure #131: Pain Assessment & Follow-up: Pain positive & plan documented, Follow-up scheduled Measure #431: Unhealthy Alcohol Use Preventative Care & Scrn: Patient not identified as an unhealthy alcohol user PQRS Measure Charge Sheet PQRS Narrative: Smoking Status Former smoker Narcotic Agreement Date Signed 05/25/19 Pain Intensity [Back] 5 Scale Used Numeric (1 - 10) Hx Alcohol Use (MH) No Home Medications: Ambulatory Orders Ibuprofen [Motrin] 800 mg PO Q8H PRN #90 tab 10/06/19 oxyCODONE HCL [oxyCODONE HCL (IR)] 20 mg PO TID PRN #90 tab 12/09/19 oxyCODONE HCL [oxyCODONE HCL (IR)] 20 mg PO TID PRN 30 Days #90 tab 12/09/19 Controlled Substance Measures - Controlled Substance Measures Is patient prescribed a controlled substance at discharge?: Yes When asked, does pt state using other controlled substances?: No If prescribed controlled substance>3 days was MAPS reviewed?: Yes If Rx opioid, was Start Talking consent form obtained?: Yes If opioid is for acute pain is fill amount 7 days or less?: No Was information provided regarding opioid addiction?: Yes
== END | disposition home or self-care (01) ==
LOC: PNWHC3 09:23
PROVIDERS: ATTEND Anesthesiology
DX: M48.061 Spinal stenosis, lumbar region without neurogenic claudication (principal); M47.816 Spondylosis without myelopathy or radiculopathy, lumbar region; G89.4 Chronic pain syndrome; C32.9 Malignant neoplasm of larynx, unspecified; Z92.3 Personal history of irradiation; Z87.891 Personal history of nicotine dependence; Z79.899 Other long term (current) drug therapy
CPT/HCPCS: 80307; G0482; G0463; 99211

== ENCOUNTER → 2020-01-08 | Outpatient (CLI) | payer MEDICARE ==
--- NOTE | 2020-01-14 20:35 | HM ---
HOLTER MONITOR REPORT This is a 72-hour Holter monitor. 1. It shows heart rates ranging from the mid 40s to the mid 90s, average heart rates in the 50s, sinus mechanism. 2. Normal MD interval. 3. A few episodes of nonsustained ventricular tachycardia and few episodes of nonsustained atrial tachycardia. 4. Infrequent PVCs. No sustained arrhythmias. MMODL / IJN: [id number] /
== END | disposition home or self-care (01) ==
LOC: RADECHMAIN 11:40
PROVIDERS: ATTEND Family Medicine
DX: I47.2 Ventricular tachycardia (principal); I47.1 Supraventricular tachycardia; I49.3 Ventricular premature depolarization
CPT/HCPCS: 93225; 93226

== ENCOUNTER → 2020-01-21 | Outpatient (CLI) | payer MEDICARE | END | disposition home or self-care (01) | LOC: LABWHC1 10:19 | PROVIDERS: ATTEND Internal Medicine | DX: E27.40 Unspecified adrenocortical insufficiency (principal) | CPT/HCPCS: 36415; 82533 ==

== ENCOUNTER → 2020-02-03 | Outpatient (CLI) | payer MEDICARE ==
[2020-02-03 10:23] VITALS: BP 142/70; PULSE 54; RESP 18; TEMP 98.6
--- NOTE | 2020-02-03 12:33 | P.PAINPG ---
Subjective Progress Note Date: 02/03/20 This is follow-up visit for this patient with a history of severe and chronic low back pain secondary to lumbar degenerative disc diseases , lumbar spondylosis with facet arthropathy, We have done interventional pain procedures radiofrequency ablation of the medial branch lumbar area . Patients currently on oxycodone 20 mg every 8 hours, Motrin 800 mg every 8 hours when necessary, patient is able to communicate only by writing, secondary to laryngectomy Patient denies any side effects of the medication, denies excessive drowsiness or sleepiness, denies suicidal ideation, and reports that the current pain medication is helping to control the pain ,and improve activity of daily living , he continued to have severe low back pain associated to numbness and tingling sensation in the lower extremities Patient denies any motor or sensory deficit , patient denies any fever or night sweats, denies any change in the bowel movements or urination Patient was diagnosed with laryngeal cancer, and he underwent radical neck dissection laryngectomy and glossectomy, and partial tracheal resection at which was done in 04/23/2019 at [facility], patient reported that most of his pain in the lumbar area, and he continued to follow up with his oncologist/ENTs Drs regarding his oropharyngeal cancer, Objective - Vital Signs Vital signs: Vital Signs Temp 98.6 F 02/03/20 10:20 Pulse 54 L 02/03/20 10:20 Resp 18 02/03/20 10:20 BP 142/70 02/03/20 10:20 Pulse Ox - Exam Physical Examinations : -Constitutiona : Cooperative , not in acute distress . -HEENT : nech : supple , no Lymphadenopathy , normal thyroid size . : eyes : no ptosis , no icterus, no ph otophobia . - neurologic : Cranial nerve II to XII intact , no focal neurological deffecit . -psychatric : alert , oriented X 3 , appropriate affect , intact judgment and insight . -Lymphatic : no Lymphadenopathy . - musculoskeltal : Lumber spine moter stegnth lower extremities ,thigh and legs 5/5 Right side , 5/5 Left side deep tendon reflexes : normal Knee Jerk , normal ankle Jerk lumber facet Loading Test =positive Right , positive Left Range of motion of the lumbar spine Flexion 30 degrees, extension 10 degrees strait leg raising test = positive at 45degree Fabere test= positive Right , and positive LT . Assessment and Plan Plan: Assessment and plan= chronic low back pain secondary to lumbar degenerative disc disease , lumbar spondylosis with lumbar facet arthropathy . Laryngeal cancer status post laryngectomy, and radiation therapy chronic and current use of high-risk medication (opioids) Patient denies any side effects of the current pain medication and the current treatment/medication helping the patient to do activity of daily living , Diagnoses, prognosis, treatment options, including but not limited to physical therapy, medication management, interventional therapies, and surgery, were discussed with the patient All the questions answered The narcotic consent was signed and patient agreed and understood the side effects and complications of opioid treatment. Patient signed the narcotic agreement, and was orally counseled, not to overuse, not to abuse, not to Divert , not tp sell pain medication, and to take it as prescribed only, Patient was counseled not to drive or operate heavy equipment while using narcotic medication, and advised not to use alcohol or any Illicit drugs while using the narcotis. understanding that lack of compliance with any of the above instructions, will likely to cause discharge from, the pain service, not to renew his narcotic prescriptions MAPS Reviwed and it was apropriate . UDS done 12/09/19 reviewed and it was appropriate Medication managements= patient will be given prescription refills for oxycodone 20 mg every 8 hours dispensed 90 with 1 refill, Motrin 800 mg every 8 hours dispense 90 with 1 refill He will follow up in the pain clinic in 2 months , Time with Patient: Less than 30 PQRS Measure Charge Sheet Measure #130: Documentation of Current Meds in Medical Chart: Patient's medications documented in chart Measure #226: Tobacco Use: Screen & Cessation Intervention: Pt screened for tobacco use AND intervention given Measure #111: Pneumonia Vaccination: Pneumococcal vaccine NOT administered or previously given Measure #47: Advance Care Plan: Advance care planning discussed & documented, pt chose/unable to give Measure #412: Opioid Treatment Agreement: Documented signed opioid trtmnt agreemnt min once during opioid trtmnt Measure #408: Opioid Therapy Follow-up Evaluation: Patient had f/u eval minimum every 3 months during opioid therapy Measure #317: Preventitive Care & Scrn High Bld Press & F/U: Pre-hypertensive or hypertensive BP documented, pt will f/u with PCP Measure #128: Body Mass Index (BMI) Screening & Follow-up: BMI documented within normal parameters Measure #131: Pain Assessment & Follow-up: Pain positive & plan documented, Follow-up scheduled Measure #431: Unhealthy Alcohol Use Preventative Care & Scrn: Patient not identified as an unhealthy alcohol user PQRS Narrative: Smoking Status Former smoker Narcotic Agreement Date Signed 12/09/19 Blood Pressure 142/70 Pain Intensity [Back] 5 Scale Used Numeric (1 - 10) Hx Alcohol Use (MH) No Home Medications: Ambulatory Orders Hydrocortisone 20 mg PO BID 02/01/20 Ibuprofen [Motrin] 800 mg PO Q8H PRN #90 tab 02/03/20 oxyCODONE HCL 20 mg PO Q8HR PRN 30 Days #90 ml 02/03/20 oxyCODONE HCL [oxyCODONE HCL (IR)] 20 mg PO TID PRN 30 Days #90 tab 02/03/20 Controlled Substance Measures - Controlled Substance Measures Is patient prescribed a controlled substance at discharge?: Yes
== END | disposition home or self-care (01) ==
LOC: PNWHC3 09:31
PROVIDERS: ATTEND Specialist
DX: M51.36 Other intervertebral disc degeneration, lumbar region (principal); M47.816 Spondylosis without myelopathy or radiculopathy, lumbar region; M46.96 Unspecified inflammatory spondylopathy, lumbar region; Z92.3 Personal history of irradiation; Z85.21 Personal history of malignant neoplasm of larynx; Z87.891 Personal history of nicotine dependence; Z79.891 Long term (current) use of opiate analgesic; Z79.899 Other long term (current) drug therapy
CPT/HCPCS: 99211

== ENCOUNTER → 2020-03-30 | Outpatient (CLI) | payer MEDICARE ==
[2020-03-30 08:43] VITALS: BP 166/74; PULSE 60; RESP 18; TEMP 98.6
--- NOTE | 2020-03-30 09:08 | P.PN ---
Subjective Progress Note Date: 03/30/20 This is follow-up visit for this patient with a history of severe and chronic low back pain secondary to lumbar degenerative disc diseases , lumbar spondylosis with facet arthropathy, We have done interventional pain procedures radiofrequency ablation of the medial branch lumbar area . Patients currently on oxycodone 20 mg every 8 hours, Motrin 800 mg every 8 hours when necessary, patient is able to communicate only by writing, secondary to laryngectomy Patient denies any side effects of the medication, denies excessive drowsiness or sleepiness, denies suicidal ideation, and reports that the current pain medication is helping to control the pain ,and improve activity of daily living , he continued to have severe low back pain associated to numbness and tingling sensation in the lower extremities Patient denies any motor or sensory deficit , patient denies any fever or night sweats, denies any change in the bowel movements or urination Patient was diagnosed with laryngeal cancer, and he underwent radical neck dissection laryngectomy and glossectomy, and partial tracheal resection at which was done in 04/23/2019 at [facility], patient reported that most of his pain in the lumbar area, and he continued to follow up with his oncologist/ENTs Drs regarding his oropharyngeal cancer, Physical Examinations : -Constitutiona : Cooperative , not in acute distress . -HEENT : nech : supple , no Lymphadenopathy , normal thyroid size . : eyes : no ptosis , no icterus, no photophobia . - neurologic : Cranial nerve II to XII intact , no focal neurological deffecit . -psychatric : alert , oriented X 3 , appropriate affect , intact judgment and insight . -Lymphatic : no Lymphadenopathy . - musculoskeltal : Lumber spine moter stegnth lower extremities ,thigh and legs 5/5 Right side , 5/5 Left side deep tendon reflexes : normal Knee Jerk , normal ankle Jerk lumber facet Loading Test =positive Right , positive Left Range of motion of the lumbar spine Flexion 30 degrees, extension 10 degrees strait leg raising test = positive at 45degree Fabere test= positive Right , and positive LT . Assessment and plan= chronic low back pain secondary to lumbar degenerative disc disease , lumbar spondylosis with lumbar facet arthropathy . Laryngeal cancer status post laryngectomy, and radiation therapy chronic and current use of high-risk medication (opioids) Patient denies any side effects of the current pain medication and the current treatment/medication helping the patient to do activity of daily living , Diagnoses, prognosis, treatment options, including but not limited to physical therapy, medication management, interventional therapies, and surgery, were discussed with the patient All the questions answered The narcotic consent was signed and patient agreed and understood the side effects and complications of opioid treatment. Patient signed the narcotic agreement, and was orally counseled, not to overuse, not to abuse, not to Divert , not tp sell pain medication, and to take it as prescribed only, Patient was counseled not to drive or operate heavy equipment while using narcotic medication, and advised not to use alcohol or any Illicit drugs while using the narcotis. understanding that lack of compliance with any of the above instructions, will likely to cause discharge from, the pain service, not to renew his narcotic prescriptions MAPS Reviwed and it was apropriate . UDS done 12/09/19 reviewed and it was appropriate Medication managements= patient will be given prescription refills for oxycodone 20 mg every 8 hours dispensed 90 with 1 refill, Motrin 800 mg every 8 hours dispense 90 with 1 refill He will follow up in the pain clinic in 2 months , Time with Patient: Less than 30 PQRS Measure Charge Sheet Measure #130: Documentation of Current Meds in Medical Chart: Patient's medi cations documented in chart Measure #226: Tobacco Use: Screen & Cessation Intervention: Pt screened for tobacco use AND intervention given Measure #111: Pneumonia Vaccination: Pneumococcal vaccine NOT administered or previously given Measure #47: Advance Care Plan: Advance care planning discussed & documented, pt chose/unable to give Measure #412: Opioid Treatment Agreement: Documented signed opioid trtmnt agreemnt min once during opioid trtmnt Measure #408: Opioid Therapy Follow-up Evaluation: Patient had f/u eval minimum every 3 months during opioid therapy Measure #317: Preventitive Care & Scrn High Bld Press & F/U: Pre-hypertensive or hypertensive BP documented, pt will f/u with PCP Measure #128: Body Mass Index (BMI) Screening & Follow-up: BMI documented within normal parameters Measure #131: Pain Assessment & Follow-up: Pain positive & plan documented, Follow-up scheduled Measure #431: Unhealthy Alcohol Use Preventative Care & Scrn: Patient not identified as an unhealthy alcohol user PQRS Narrative: Objective - Vital Signs Vital signs: Vital Signs Temp 98.6 F 03/30/20 08:39 Pulse 60 03/30/20 08:39 Resp 18 03/30/20 08:39 BP 166/74 03/30/20 08:39 Pulse Ox 95 03/30/20 08:39 Intake & Output 03/29/20 03/30/20 03/30/20 18:59 06:59 18:59 Weight 79.379 kg
== END | disposition home or self-care (01) ==
LOC: PNWHC3 08:28
PROVIDERS: ATTEND Specialist
DX: M51.36 Other intervertebral disc degeneration, lumbar region (principal); M47.816 Spondylosis without myelopathy or radiculopathy, lumbar region; G89.29 Other chronic pain; Z79.891 Long term (current) use of opiate analgesic; Z79.899 Other long term (current) drug therapy
CPT/HCPCS: 99211

== ENCOUNTER → 2020-05-25 | Outpatient (CLI) | payer MEDICARE ==
[2020-05-25 08:18] VITALS: BP 143/70; PULSE 52; RESP 18; TEMP 98.4
--- NOTE | 2020-05-25 08:36 | P.PN ---
Subjective Progress Note Date: 05/25/20 This is follow-up visit for this patient with a history of severe and chronic low back pain secondary to lumbar degenerative disc diseases , lumbar spondylosis with facet arthropathy, We have done interventional pain procedures radiofrequency ablation of the medial branch lumbar area . Patients currently on oxycodone 20 mg every 8 hours, Motrin 800 mg every 8 hours when necessary, patient is able to communicate only by writing, secondary to laryngectomy Patient denies any side effects of the medication, denies excessive drowsiness or sleepiness, denies suicidal ideation, and reports that the current pain medication is helping to control the pain ,and improve activity of daily living , he continued to have severe low back pain associated to numbness and tingling sensation in the lower extremities Patient denies any motor or sensory deficit , patient denies any fever or night sweats, denies any change in the bowel movements or urination Patient was diagnosed with laryngeal cancer, and he underwent radical neck dissection laryngectomy and glossectomy, and partial tracheal resection at which was done in 04/23/2019 at [facility], patient reported that most of his pain in the lumbar area, and he continued to follow up with his oncologist/ENTs Drs regarding his oropharyngeal cancer, Objective - Vital Signs Vital signs: Vital Signs Temp 98.4 F 05/25/20 08:13 Pulse 52 L 05/25/20 08:13 Resp 18 05/25/20 08:13 BP 143/70 05/25/20 08:13 Pulse Ox 97 05/25/20 08:13 - Exam -Constitutiona : Cooperative , not in acute distress . -HEENT : nech : supple , no Lymphadenopathy , normal thyroid size . : eyes : no ptosis , no icterus, no photophobia . - neurologic : Cranial nerve II to XII intact , no focal neurological deffecit . -psychatric : alert , oriented X 3 , appropriate affect , intact judgment and insight . -Lymphatic : no Lymphadenopathy . - musculoskeltal : Lumber spine moter stegnth lower extremities ,thigh and legs 5/5 Right side , 5/5 Left side deep tendon reflexes : normal Knee Jerk , normal ankle Jerk lumber facet Loading Test =positive Right , positive Left Range of motion of the lumbar spine Flexion 30 degrees, extension 10 degrees strait leg raising test = positive at 45degree Fabere test= positive Right , and positive LT . Assessment and Plan Plan: Assessment and plan= chronic low back pain secondary to lumbar degenerative disc disease , lumbar spondylosis with lumbar facet arthropathy . Laryngeal cancer status post laryngectomy, and radiation therapy chronic and current use of high-risk medication (opioids) Patient denies any side effects of the current pain medication and the current treatment/medication helping the patient to do activity of daily living , Diagnoses, prognosis, treatment options, including but not limited to physical therapy, medication management, interventional therapies, and surgery, were discussed with the patient All the questions answered The narcotic consent was signed and patient agreed and understood the side effects and complications of opioid treatment. Patient signed the narcotic agreement, and was orally counseled, not to overuse, not to abuse, not to Divert , not tp sell pain medication, and to take it as prescribed only, Patient was counseled not to drive or operate heavy equipment while using narcotic medication, and advised not to use alcohol or any Illicit drugs while using the narcotis. understanding that lack of compliance with any of the above instructions, will likely to cause discharge from, the pain service, not to renew his narcotic prescriptions MAPS Reviwed and it was apropriate . UDS done 12/09/19 reviewed and it was appropriate, we will order UDS next visit Medication managements= patient will be given prescription refills for oxycodone 20 mg every 8 hours dispensed 90 with 1 refill, He will follow up in the pain clinic in 2 months , Time with Patient: Less than 30 PQRS Measure Charge Sheet Measure #130: Documentation of Current Meds in Medical Chart: Patient's medications documented in chart Measure #226: Tobacco Use: Screen & Cessation Intervention: Pt screened for tobacco use AND intervention given Measure #111: Pneumonia Vaccination: Pneumococcal vaccine NOT administered or previously given Measure #47: Advance Care Plan: Advance care planning discussed & documented, pt chose/unable to give Measure #412: Opioid Treatment Agreement: Documented signed opioid trtmnt agreemnt min once during opioid trtmnt Measure #408: Opioid Therapy Follow-up Evaluation: Patient had f/u eval minimum every 3 months during opioid therapy Measure #317: Preventitive Care & Scrn High Bld Press & F/U: Pre-hypertensive or hypertensive BP documented, pt will f/u with PCP Measure #128: Body Mass Index (BMI) Screening & Follow-up: BMI documented within normal parameters Measure #131: Pain Assessment & Follow-up: Pain positive & plan documented, Follow-up scheduled Measure #431: Unhealthy Alcohol Use Preventative Care & Scrn: Patient not identified as an unhealthy alcohol user Time with Patient: Less than 30
== END | disposition home or self-care (01) ==
LOC: PNWHC3 07:51
PROVIDERS: ATTEND Specialist
DX: M51.36 Other intervertebral disc degeneration, lumbar region (principal); M47.816 Spondylosis without myelopathy or radiculopathy, lumbar region; G89.29 Other chronic pain; Z98.890 Other specified postprocedural states; Z92.3 Personal history of irradiation
CPT/HCPCS: 99211

== ENCOUNTER → 2020-07-20 | Outpatient (CLI) | payer MEDICARE ==
[2020-07-20 08:31] VITALS: BP 155/80; PULSE 52; RESP 18; TEMP 98.1
--- NOTE | 2020-07-20 10:09 | P.PAINPG ---
Subjective Progress Note Date: 07/20/20 Tyler is a 64-year-old gentleman presented today for follow-up. He has a long history of chronic pain secondary to multiple problems. His a history of laryngectomy and does not speak. He writes down that he feels his pain is under good control with the current medications. He feels that helps her about 5 or 6 hours but not longer than that. They're sometimes her is having little bit more pain. Overall his VAS about 6 out of 10 today. He feels that the pain medication to improve his symptoms and helped him with his function. He denies any side effects from the medications. He denies any new symptoms. He denies any bowel or bladder incontinence or any overt loss of sensation. Objective - Vital Signs Vital signs: Vital Signs Temp 98.1 F 07/20/20 08:24 Pulse 52 L 07/20/20 08:24 Resp 18 07/20/20 08:24 BP 155/80 07/20/20 08:24 Pulse Ox 97 07/20/20 08:24 - Exam PHYSICAL EXAM: Constitutional: Awake and alert no distress Cardiovascular exam: Regular rate, no lower extremity edema, palpable pulses bilaterally Respiratory exam: No audible wheezing, stoma was patent in the neck. Muscular skeletal exam: - Cervical spine: Nontender to palpation bilaterally. Range of motion is not limited. Spurling is negative bilateral. Facet loading is negative bilaterally - Lumbar spine: There is loss of lumbar lordosis. He is able stand from a seated position. Able stand on his toes on his heels. He is able to extend and flex at the lower spine with minimal pain. Neuro exam: Normal sensation bilateral upper and lower extremities. Deep tendon reflexes are 2+ bilaterally. Moura's is negative Psychiatric exam: Cooperative, good insight Assessment and Plan Assessment: #1 lumbar spondylosis without myelopathy #2 lumbar degenerative disc disease #3 laryngeal cancer status post laryngectomy Plan: Bothers been stable on these current medications. They are offering him good relief and he feels like the medications do improve his overall life. We will continue with the current medications. I'll not make any changes today. Urine drug screen was taken today. I have spent 31 minutes on patient care today. The time was used to review the medical records including relevant urine studies and Prescription history (MAPs), review of the available imaging, evaluation and examination of the patient, coordination of care with the medical staff and if applicable referring physicians, as well as creation of the medical record. PQRS Measure Charge Sheet Measure #130: Documentation of Current Meds in Medical Chart: Patient's medications documented in chart PQRS Narrative: Smoking Status Former smoker Narcotic Agreement Date Signed 07/20/20 Blood Pressure 155/80 Pain Intensity [Back] 5 Scale Used Numeric (1 - 10) Hx Alcohol Use (MH) No Home Medications: Ambulatory Orders oxyCODONE HCL 20 mg PO Q8HR PRN #90 mg 07/20/20 oxyCODONE HCL 20 mg PO Q8HR PRN #90 mg 07/20/20 Controlled Substance Measures - Controlled Substance Measures Is patient prescribed a controlled substance at discharge?: Yes When asked, does pt state using other controlled substances?: No If prescribed controlled substance>3 days was MAPS reviewed?: Yes If Rx opioid, was Start Talking consent form obtained?: Yes If opioid is for acute pain is fill amount 7 days or less?: No Was information provided regarding opioid addiction?: Yes
== END | disposition home or self-care (01) ==
LOC: PNWHC3 08:00
PROVIDERS: ATTEND Hospitalist
DX: M51.36 Other intervertebral disc degeneration, lumbar region (principal); M47.816 Spondylosis without myelopathy or radiculopathy, lumbar region; Z85.21 Personal history of malignant neoplasm of larynx; Z90.02 Acquired absence of larynx; Z87.891 Personal history of nicotine dependence
CPT/HCPCS: 80307; G0482; G0463; 99212

== ENCOUNTER → 2020-09-14 | Outpatient (CLI) | payer MEDICARE ==
[2020-09-14 08:03] VITALS: BP 183/75; PULSE 58; RESP 16; TEMP 98.3
--- NOTE | 2020-09-14 14:49 | P.PN ---
Subjective Progress Note Date: 09/14/20 This is follow-up visit for this patient with a history of severe and chronic low back pain secondary to lumbar degenerative disc diseases , lumbar spondylosis with facet arthropathy, We have done interventional pain procedures radiofrequency ablation of the medial branch lumbar area . Patients currently on oxycodone 20 mg every 8 hours, Motrin 800 mg every 8 hours when necessary, patient is able to communicate only by writing, secondary to laryngectomy Patient denies any side effects of the medication, denies excessive drowsiness or sleepiness, denies suicidal ideation, and reports that the current pain medication is helping to control the pain ,and improve activity of daily living , he continued to have severe low back pain associated to numbness and tingling sensation in the lower extremities Patient denies any motor or sensory deficit , patient denies any fever or night sweats, denies any change in the bowel movements or urination Patient was diagnosed with laryngeal cancer, and he underwent radical neck dissection laryngectomy and glossectomy, and partial tracheal resection at which was done in 04/23/2019 at [facility], patient reported that most of his pain in the lumbar area, and he continued to follow up with his oncologist/ENTs 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 -HEENT : nech : supple , no Lymphadenopathy , normal thyroid size . : eyes : no ptosis , no icterus, no photophobia . - neurologic : Cranial nerve II to XII intact , no focal neurological deffecit . -psychatric : alert , oriented X 3 , appropriate affect , intact judgment and insight . -Lymphatic : no Lymphadenopathy . - musculoskeltal : Lumber spine moter stegnth lower extremities ,thigh and legs 5/5 Right side , 5/5 Left side deep tendon reflexes : normal Knee Jerk , normal ankle Jerk lumber facet Loading Test =positive Right , positive Left Range of motion of the lumbar spine Flexion 30 degrees, extension 10 degrees strait leg raising test = positive at 45degree Fabere test= positive Right , and positive LT Assessment and plan= chronic low back pain secondary to lumbar degenerative disc disease , lumbar spondylosis with lumbar facet arthropathy . Laryngeal cancer status post laryngectomy, and radiation therapy chronic and current use of high-risk medication (opioids) Patient denies any side effects of the current pain medication and the current treatment/medication helping the patient to do activity of daily living , Diagnoses, prognosis, treatment options, including but not limited to physical therapy, medication management, interventional therapies, and surgery, were discussed with the patient All the questions answered The narcotic consent was signed and patient agreed and understood the side effects and complications of opioid treatment. Patient signed the narcotic agreement, and was orally counseled, not to overuse, not to abuse, not to Divert , not tp sell pain medication, and to take it as prescribed only, Patient was counseled not to drive or operate heavy equipment while using narcotic medication, and advised not to use alcohol or any Illicit drugs while using the narcotis. understanding that lack of compliance with any of the above instructions, will likely to cause discharge from, the pain service, not to renew his narcotic prescriptions MAPS Reviwed and it was apropriate . Medication managements= patient will be given prescription refills for oxycodone 20 mg every 8 hours dispensed 90 with 1 refill, He will follow up in the pain clinic in 2 months , Time with Patient: Less than 30 PQRS Measure Charge Sheet Measure #130: Documentation of Current Meds in Medical Chart: Patient's medications documented in chart Measure #226: Tobacco Use: Screen & Cessation Intervention: Pt screened for tobacco use AND intervention given Measure #111: Pneumonia Vaccination: Pneumococcal vaccine NOT administered or previously given Measure #47: Advance Care Plan: Advance care planning discussed & documented, pt chose/unable to give Measure #412: Opioid Treatment Agreement: Documented signed opioid trtmnt agreemnt min once during opioid trtmnt Measure #408: Opioid Therapy Follow-up Evaluation: Patient had f/u eval minimum every 3 months during opioid therapy Measure #317: Preventitive Care & Scrn High Bld Press & F/U: Pre-hypertensive or hypertensive BP documented, pt will f/u with PCP Measure #128: Body Mass Index (BMI) Screening & Follow-up: BMI documented within normal parameters Measure #131: Pain Assessment & Follow-up: Pain positive & plan documented, Follow-up scheduled Measure #431: Unhealthy Alcohol Use Preventative Care & Scrn: Patient not identified as an unhealthy alcohol user Time with Patient: Less than 30 Objective - Vital Signs Vital signs: Vital Signs Temp 98.3 F 09/14/20 08:01 Pulse 58 L 09/14/20 08:01 Resp 16 09/14/20 08:01 BP 183/75 09/14/20 08:01 Pulse Ox 97 09/14/20 08:01
== END ==
LOC: PNWHC3 07:32
PROVIDERS: ATTEND Specialist
DX: M51.36 Other intervertebral disc degeneration, lumbar region (principal); M47.816 Spondylosis without myelopathy or radiculopathy, lumbar region; C32.9 Malignant neoplasm of larynx, unspecified; Z90.02 Acquired absence of larynx; Z79.891 Long term (current) use of opiate analgesic; Z87.891 Personal history of nicotine dependence
CPT/HCPCS: 99211

== ENCOUNTER → 2020-11-09 | Outpatient (CLI) | payer MEDICARE ==
--- NOTE | 2020-11-09 08:06 | P.PN ---
Subjective Progress Note Date: 11/09/20 This is a 62-year-old gentleman with history of chronic lower back pain and mild anterior neck pain due to laryngectomy for history of laryngeal cancer. The patient communicates by writing but he is going to have tracheostomy soon which will make him able to communicate verbally. The patient takes oxycodone 20 mg 3 times a day which controls his pain well. Also gets Neurontin 300 mg 3 times a day by his oncologist however his oncologist would like us to take over Neurontin prescription. The patient denies any changes since the last time we interviewed him in our clinic. Patient denies new-onset weakness, bowel/bladder incontinence, or any other signs or symptoms of cauda equina syndrome. There are no signs of acute intoxication, and no indications of medication diversion or overuse. In addition to above, 13-point review of systems is also negative for chest pain, shortness of breath, changes in vision, changes in hearing, new onset weakness, abdominal pain, diarrhea, extreme fatigue, malaise, fever, skin changes, homicidal or suicidal ideation, or bowel or bladder incontinence. Vital Signs: Reviewed in EMR Gen: AAOx3, NAD HEENT: PERRLA,hearing grossly normal Pulm: resp unlabored Neck: supple, trachea midline Neuro exam of the lower extremities: Normal strength bilaterally Straight leg raising test: Mars's test: Range of motion of the lumbar spine: Decreased due to pain Facet loading test: Tenderness in the paravertebral musculature: Neuro: CN II-XII grossly intact, Imaging: Reviewed in EMR/chart Assessment: Lumbar spondylosis without myelopathy Lumbar DDD Laryngectomy due to a history of cancer Plan: 1. Explanation: Opioid and psychological risk scores were reviewed. Diagnoses, prognoses, and multiple treatment options including but not limited to physical therapy, interventional therapies, adjuvant medical therapies, narcotic medication therapies, and surgery were discussed with the patient and all questions were answered to the patient's satisfaction. 2. Opioid agreement: Signed with the patient and the patient is warned not to use opioids while driving or before driving and not to combine opioids with benzodiazepines or alcohol. 3. Counseling: The patient was counseled extensively on SMOKING CESSATION, BODY MASS INDEX, EXERCISE. Specifically, the patient was instructed regarding the importance of smoking cessation, obesity, and exercise in the context of both chronic pain and overall health. 4. Procedures: None for now 5. Consultations: None 6. Investigations: None 7. Medications: Continue oxycodone 20 mg 3 times a day #90 pills with 1 refill and Neurontin 300 mg 6 times a day #90 pills with 1 refill 8. Disposition: Return to clinic in 8 weeks 9. Maps were reviewed and were appropriate. Controlled Substance Measures Is patient prescribed a controlled substance at discharge?: Yes When asked, does pt state using other controlled substances?: No If prescribed controlled substance>3 days was MAPS reviewed?: Yes If Rx opioid, was Start Talking consent form obtained?: Yes If opioid is for acute pain is fill amount 7 days or less?: No Was information provided regarding opioid addiction?: Yes
[2020-11-09 08:12] VITALS: BP 171/74; PULSE 56; RESP 18; TEMP 98.9
== END ==
LOC: PNWHC3 07:34
PROVIDERS: ATTEND Anesthesiology
DX: M47.816 Spondylosis without myelopathy or radiculopathy, lumbar region (principal); M51.36 Other intervertebral disc degeneration, lumbar region; Z90.09 Acquired absence of other part of head and neck; Z87.891 Personal history of nicotine dependence
CPT/HCPCS: 99211

== ENCOUNTER → 2021-01-04 | Outpatient (CLI) | payer MEDICARE ==
[2021-01-04 08:28] VITALS: BP 174/78; PULSE 57; RESP 18; TEMP 98.6
--- NOTE | 2021-01-04 08:34 | P.PN ---
Subjective Progress Note Date: 01/04/21 This is a 62-year-old gentleman with history of chronic lower back pain and mild anterior neck pain due to laryngectomy for history of laryngeal cancer. The patient communicates by writing but he is going to have tracheostomy soon which will make him able to communicate verbally. The patient takes oxycodone 20 mg 3 times a day which controls his pain well. Also gets Neurontin 300 mg 3 times a day. The patient's pain today is 4-5 out of 10. The patient is scheduled to have the voice box, as he names it , hopefully within a few weeks. The patient denies any changes since the last time we interviewed him in our clinic. The pain occasionally radiates down both legs to the mid calf area with occasional numbness and tingling as she states. Patient denies new-onset weakness, bowel/bladder incontinence, or any other signs or symptoms of cauda equina syndrome. There are no signs of acute intoxication, and no indications of medication diversion or overuse. In addition to above, 13-point review of systems is also negative for chest pain, shortness of breath, changes in vision, changes in hearing, new onset weakness, abdominal pain, diarrhea, extreme fatigue, malaise, fever, skin changes, homicidal or suicidal ideation, or bowel or bladder incontinence. Vital Signs: Reviewed in EMR Gen: AAOx3, NAD HEENT: PERRLA,hearing grossly normal Pulm: resp unlabored Neck: supple, trachea midline Neuro exam of the lower extremities: Normal strength bilaterally Straight leg raising test: Mars's test: Range of motion of the lumbar spine: Decreased due to pain Facet loading test: Tenderness in the paravertebral musculature: Positive in the lumbar area l aterally Neuro: CN II-XII grossly intact, Imaging: Reviewed in EMR/chart Assessment: Lumbar spondylosis without myelopathy Lumbar DDD Laryngectomy due to a history of cancer Plan: 1. Explanation: Opioid and psychological risk scores were reviewed. Diagnoses, prognoses, and multiple treatment options including but not limited to physical therapy, interventional therapies, adjuvant medical therapies, narcotic medication therapies, and surgery were discussed with the patient and all questions were answered to the patient's satisfaction. 2. Opioid agreement: Signed with the patient and the patient is warned not to use opioids while driving or before driving and not to combine opioids with benzodiazepines or alcohol. 3. Counseling: The patient was counseled extensively BODY MASS INDEX, EXERCISE. Specifically, the patient was instructed regarding the importance of smoking cessation, obesity, and exercise in the context of both chronic pain and overall health. 4. Procedures: None for now 5. Consultations: None 6. Investigations: None 7. Medications: Continue oxycodone 20 mg 3 times a day #90 pills with 1 refill and Neurontin 300 mg 6 times a day #90 pills with 1 refill 8. Disposition: Return to clinic in 8 weeks 9. Maps were reviewed and were appropriate. Controlled Substance Measures Is patient prescribed a controlled substance at discharge?: Yes When asked, does pt state using other controlled substances?: No If prescribed controlled substance>3 days was MAPS reviewed?: Yes If Rx opioid, was Start Talking consent form obtained?: Yes If opioid is for acute pain is fill amount 7 days or less?: No Was information provided regarding opioid addiction?: Yes Objective - Vital Signs Vital signs: Vital Signs Temp 98.6 F 01/04/21 08:26 Pulse 57 L 01/04/21 08:26 Resp 18 01/04/21 08:26 BP 174/78 01/04/21 08:26 Pulse Ox 97 01/04/21 08:26
== END | disposition home or self-care (01) ==
LOC: PNWHC3 07:54
PROVIDERS: ATTEND Anesthesiology
DX: M51.36 Other intervertebral disc degeneration, lumbar region (principal); M47.816 Spondylosis without myelopathy or radiculopathy, lumbar region; Z79.891 Long term (current) use of opiate analgesic; Z79.899 Other long term (current) drug therapy; Z85.21 Personal history of malignant neoplasm of larynx; Z90.02 Acquired absence of larynx
CPT/HCPCS: 99211

== ENCOUNTER → 2021-03-01 | Outpatient (CLI) | payer MEDICARE ==
[2021-03-01 07:57] VITALS: BP 153/75; PULSE 51
[2021-03-01 08:04] VITALS: RESP 18
--- NOTE | 2021-03-01 08:25 | P.PN ---
Subjective Progress Note Date: 03/01/21 This is follow-up visit for this patient with a history of severe and chronic low back pain secondary to lumbar degenerative disc diseases , lumbar spondylosis with facet arthropathy, We have done interventional pain procedures radiofrequency ablation of the medial branch lumbar area . Patients currently on oxycodone 20 mg every 8 hours, Neurontin 300 mg 3 times a day, Motrin 800 mg every 12 hours when necessary, patient is able to communicate only by writing, secondary to laryngectomy Patient denies any side effects of the medication, denies excessive drowsiness or sleepiness, denies suicidal ideation, and reports that the current pain medication is helping to control the pain ,and improve activity of daily living , he continued to have severe low back pain associated to numbness and tingling sensation in the lower extremities Patient denies any motor or sensory deficit , patient denies any fever or night sweats, denies any change in the bowel movements or urination Patient was diagnosed with laryngeal cancer, and he underwent radical neck dissection laryngectomy and glossectomy, and partial tracheal resection at which was done in 04/23/2019 at [facility], patient reported that most of his pain in the lumbar area, and he continued to follow up with his oncologist/ENTs Drs regarding his oropharyngeal cancer, he continued to communicate through the writing ,he is not able to Talk, he failed voice box , and March 15 he will have another trial for the voice box -Constitutiona : Cooperative , not in acute distress . -HEENT : nech : supple , no Lymphadenopathy , normal thyroid size . : eyes : no ptosis , no icterus, no photophobia . - neurologic : Cranial nerve II to XII intact , no focal neurological deffecit . -psychatric : alert , oriented X 3 , appropriate affect , intact judgment and insight . -Lymphatic : no Lymphadenopathy . - musculoskeltal : Lumber spine moter stegnth lower extremities ,thigh and legs 5/5 Right side , 5/5 Left side deep tendon reflexes : normal Knee Jerk , normal ankle Jerk lumber facet Loading Test =positive Right , positive Left Range of motion of the lumbar spine Flexion 30 degrees, extension 10 degrees strait leg raising test = positive at 45degree Fabere test= positive Right , and positive LT Assessment and plan= chronic low back pain secondary to lumbar degenerative disc disease , lumbar spondylosis with lumbar facet arthropathy . Laryngeal cancer status post laryngectomy, and radiation therapy chronic and current use of high-risk medication (opioids) Patient denies any side effects of the current pain medication and the current treatment/medication helping the patient to do activity of daily living , Diagnoses, prognosis, treatment options, including but not limited to physical therapy, medication management, interventional therapies, and surgery, were discussed with the patient All the questions answered The narcotic consent was signed and patient agreed and understood the side e ffects and complications of opioid treatment. Patient signed the narcotic agreement, and was orally counseled, not to overuse, not to abuse, not to Divert , not tp sell pain medication, and to take it as prescribed only, Patient was counseled not to drive or operate heavy equipment while using narcotic medication, and advised not to use alcohol or any Illicit drugs while using the narcotis. understanding that lack of compliance with any of the above instructions, will likely to cause discharge from, the pain service, not to renew his narcotic prescriptions MAPS Reviwed and it was apropriate . Medication managements= patient will be given prescription refills for oxycodone 20 mg every 8 hours dispensed 90 with 1 refill, neurontine 300 mg 3 times a day Motrin 800 mg twice a day when necessary He will follow up in the pain clinic in 2 months , Time with Patient: Less than 30 - PQRS measures = - Patient's medications are documented in the chart. -Tobacco use is negative and counseling.Given. -Patient's has not received pneumococcal vaccine. -Advanced care planning discussed, patient not eligible. -Opiate contract signed. -Pain positive and follow-up visit/procedure is scheduled. -Patient's blood pressure measured [ 153/75 ] , and documented in the record ,and patient will follow up with the primary care. -Patient's weight was measured and body mass index [32 ] above the normal limits and counseling was done. and patient instructed to follow-up with the primary care physician. -Patient was not identified as an unhealthy alcohol user Objective - Vital Signs Vital signs: Vital Signs Temp Pulse 51 L 03/01/21 07:52 Resp 18 03/01/21 07:52 BP 153/75 03/01/21 07:52 Pulse Ox 97 03/01/21 07:52 Intake & Output 02/28/21 03/01/21 03/01/21 18:59 06:59 18:59 Weight 111.13 kg
== END ==
LOC: PNWHC3 07:39
PROVIDERS: ATTEND Specialist
DX: M51.36 Other intervertebral disc degeneration, lumbar region (principal); M47.816 Spondylosis without myelopathy or radiculopathy, lumbar region; G89.29 Other chronic pain; C32.9 Malignant neoplasm of larynx, unspecified; Z90.02 Acquired absence of larynx; Z79.891 Long term (current) use of opiate analgesic; Z87.891 Personal history of nicotine dependence
CPT/HCPCS: 80307; G0482; G0463; 99212

== ENCOUNTER → 2021-04-03 | Outpatient (CLI) | payer MEDICARE ==
--- NOTE | 2021-04-03 11:12 | CT ---
EXAMINATION TYPE: CT brain w con DATE OF EXAM: 04/03/2021 COMPARISON: None HISTORY: Laryngeal CA CT DLP: 1126.5 mGycm Automated exposure control for dose reduction was used. CONTRAST: CT scan of the head is performed with IV Contrast, patient injected with 100 mL of Isovue 300. FINDINGS: There is no abnormal enhancing mass or midline shift identified. The ventricles and sulci are within normal limits in size. The globes are intact and the visualized sinuses are clear. IMPRESSION: Negative contrast enhanced head CT exam.
--- NOTE | 2021-04-03 16:43 | CT ---
EXAMINATION TYPE: CT soft tissue neck w con DATE OF EXAM: 04/03/2021 COMPARISON: None HISTORY: Laryngeal CA CT DLP: 605.9 mGycm CONTRAST: Patient injected with 100 mL of Isovue 300. TECHNIQUE: Axial images at 3 mm thick sections. Reconstructed images in the coronal plane and sagitt al plane are reviewed. FINDINGS: Limited CT sections are obtained the lung apices. The lung apices appear clear. CT neck: Right torus tubarius appears swollen and there is effacement of the fossa of Rosenmuller maria aterally. Consider direct visualization. Faith Healer spaces are normal. There is a retention cyst wit hin the right anterior maxillary sinus. Remaining paranasal sinuses within the field of view are laura r. Mastoid air cells are under pneumatized. Fluid appears to be within the inferior right mastoid air cells. Parotid glands appear normal and symmetrical. Submandibular glands, are normal. Parapharyngeal spac es and multiple surgical clips from prior dissection. Surgical clips are within the inferior neck and submental spaces bilaterally, more so on the right. There is tracheostomy in the midline. Thyroid ap pears to be surgically absent. No suspicious adenopathy is evident. There is a tracheostomy tube in the midline. The subglottic airway appears normal. Portion of the hyp opharynx visualized appears normal. Laryngeal region has been surgically removed. No suspicious acute cervical spine changes are evident. There is some foraminal narrowing from uncove rtebral joint hypertrophy. Vertebral body alignment appears normal. Posterior spinal lamellar line is intact. IMPRESSIONS: 1. There is fullness within the torus tubarius and fossa of Rosenmuller which could be some hypertrop hied adenopathy. Consider direct visualization or PET/CT.
== END | disposition home or self-care (01) ==
LOC: RADCTMAIN 08:00
PROVIDERS: ATTEND Internal Medicine
DX: C32.9 Malignant neoplasm of larynx, unspecified (principal)
CPT/HCPCS: 70491; 70460; Q9967

== ENCOUNTER → 2021-04-26 | Outpatient (CLI) | payer MEDICARE ==
--- NOTE | 2021-04-26 08:10 | P.PN ---
Subjective Progress Note Date: 04/26/21 This is follow-up visit for this patient with a history of severe and chronic low back pain secondary to lumbar degenerative disc diseases , lumbar spondylosis with facet arthropathy, We have done interventional pain procedures radiofrequency ablation of the medial branch lumbar area . Patients currently on oxycodone 20 mg every 8 hours, Neurontin 300 mg 3 times a day, Motrin 800 mg every 12 hours when necessary, patient is able to communicate only by writing, secondary to laryngectomy Patient denies any side effects of the medication, denies excessive drowsiness or sleepiness, denies suicidal ideation, and reports that the current pain medication is helping to control the pain ,and improve activity of daily living , he continued to have severe low back pain associated to numbness and tingling sensation in the lower extremities Patient denies any motor or sensory deficit , patient denies any fever or night sweats, denies any change in the bowel movements or urination Patient was diagnosed with laryngeal cancer, and he underwent radical neck dissection laryngectomy and glossectomy, and partial tracheal resection at which was done in 04/23/2019 at [facility], patient reported that most of his pain in the lumbar area, and he continued to follow up with his oncologist/ENTs Drs regarding his oropharyngeal cancer, he continued to communicate through the writing ,he is not able to Talk, he failed voice box . Objective - Exam Physical Examinations : -Constitutiona : Cooperative , not in acute distress . -HEENT : nech : supple , no Lymphadenopathy , normal thyroid size . : eyes : no ptosis , no icterus, no photophobia . - neurologic : Cranial nerve II to XII intact , no focal neurological deffecit . -psychatric : alert , oriented X 3 , appropriate affect , intact judgment and insight . -Lymphatic : no Lymphadenopathy . - musculoskeltal : Lumber spine moter stegnth lower extremities ,thigh and legs 5/5 Right side , 5/5 Left side deep tendon reflexes : normal Knee Jerk , normal ankle Jerk lumber facet Loading Test =positive Right , positive Left Range of motion of the lumbar spine Flexion 30 degrees, extension 10 degrees strait leg raising test = positive at 30 degree Fabere test= positive Right , and positive LT . Sever tenderness over the Sacroiliac joint on the Right , and Left sides Gaenslen test= positive right ,and positive left . Seated flexion test= positive right ,and positive Left . Distraction test= positive bilaterally Sacroiliac compression test= positive bilaterally Assessment and Plan Assessment: Assessment and plan Assessment: Lumbar spondylosis with facet arthropathy without myelopathy Lumbar degenerative disc disease Chronic opioid use for analgesia Cancer Plan: Refill oxycodone 1 tablet by mouth every 8 hours as needed #90 pills with 1 refill. Independent in 300 mg 1 tablet by mouth every 8 hours #90 pills one refill. Motrin 800 One pill by mouth every [address] Hamilton was available by phone for consultation during his visit. I have spent 20 minutes on patient care today. The time was used to review the medical records including relevant urine studies and Prescription history (MAPs), review of the available imaging, evaluation and examination of the patient, coordination of care with the medical staff and if applicable referring physicians, as well as creation of the medical record. - PQRS measures = - Patient's medications are documented in the chart. -Tobacco use is negative -Patient's has not received pneumococcal vaccine. -Advanced care planning discussed, patient not eligible. -Opiate contract signed. -Pain positive and follow-up visit/procedure is scheduled. -Patient's blood pressure measured 171/84 , and documented in the record ,and patient will follow up with the primary care. -Patient was not identified as an unhealthy alcohol user Time with Patient: Less than 30
[2021-04-26 08:11] VITALS: BP 171/84; PULSE 51; RESP 18; TEMP 98.8
== END ==
LOC: PNWHC3 07:29
PROVIDERS: ATTEND Student in an Organized Health Care Education/Training Program
DX: M47.816 Spondylosis without myelopathy or radiculopathy, lumbar region (principal); M51.36 Other intervertebral disc degeneration, lumbar region; Z79.891 Long term (current) use of opiate analgesic; C80.1 Malignant (primary) neoplasm, unspecified; Z87.891 Personal history of nicotine dependence
CPT/HCPCS: 99211

== ENCOUNTER → 2021-05-05 | Outpatient (CLI) | payer MEDICARE ==
--- NOTE | 2021-05-09 10:49 | PE ---
EXAMINATION TYPE: PET CT fusion skull to thigh DATE OF EXAM: 05/05/2021 COMPARISON: Outside PET/CT January 18, 2020 HISTORY: History of throat cancer diagnosed 2018 treated surgically completed radiation an d chemotherapy treatment , the latter in March 2021. TECHNIQUE: Following the intravenous administration of 12.58 mCi of F-18 FDG, whole body images are performed from the skull base to the midthigh. Images are reviewed on the computer in the coronal, a xial, and sagittal planes. Reconstructed rotating images are created on independent workstation and reviewed on the computer. A localization and attenuation correction CT is performed in conjunction with the PET scan. Dedicated PET-CT imaging of the neck is performed. Blood glucose level equals 89. SCAN: Subsequent Scan FINDINGS: SKULL BASE AND NECK: Radical neck dissection surgical changes redemonstrated. Stable symmetric uptak e of the bilateral palatine tonsils there are axial image 46. No suspicious jarvis recurrence abnormal hypermetabolic uptake in the neck including the nasopharynx and the surrounding tracheal stoma or th e bilateral neck region. CHEST, MEDIASTINUM, AND HILAR REGION: Mild underlying emphysematous change redemonstrated. No suspici ous new hypermetabolic uptake. Stable 2 to 3 mm right upper lobe nodule axial image 93 current study. Stable 2 mm left upper lobe nodule along major fissure axial image 82. Prior visualized 5 mm posteri or left basilar nodule not clearly seen on current study. ABDOMEN AND PELVIS: Normal excretion is evident. No new abnormal hypermetabolic uptake. OSSEOUS STRUCTURES: No new areas of abnormal hypermetabolic uptake. OTHER CT: Left-sided mediastinal clips redemonstrated. Mild cardiomegaly again seen. AAA measures up to 4.7 cm AP diameter axial image 183 slightly larger from prior. Enlarged prostate consistent with B PH redemonstrated. Bladder shows [id number] concentric wall thickening likely product of outlet obstruction. Mild to moderate disc space narrowing at lumbosacral junction redemonstrated IMPRESSION: No suspicious new hypermetabolic uptake to suggest active neoplastic recurrence. Extensiv e posttreatment changes in the neck redemonstrated. AAA up to 4.7 cm in size now identified slightly larger from prior PET/CT.
== END | disposition home or self-care (01) ==
LOC: RADPETMAIN 07:06
PROVIDERS: ATTEND Internal Medicine
DX: I71.4 Abdominal aortic aneurysm, without rupture (principal); Z85.818 Personal history of malignant neoplasm of other sites of lip, oral cavity, and pharynx
CPT/HCPCS: 78815; A9552

== ENCOUNTER → 2021-06-21 | Outpatient (CLI) | payer MEDICARE ==
[2021-06-21 08:00] VITALS: BP 152/84; PULSE 55; RESP 15; TEMP 98.5
--- NOTE | 2021-06-21 08:24 | P.PN ---
Subjective Progress Note Date: 06/21/21 Principal diagnosis: A 65 yr old male with a history of severe and chronic low back pain secondary to lumbar degenerative disc diseases and lumbar spondylosis with facet arthropathy presents today for medication refills. Pain level is 5 /10 in intensity but he still experiences difficulty twisting, bending and lifting at that pain level. He hopes his pain level can be 2 /10 so that he can perform activities of daily living with more ease. Pain is in the lower part of the s mall of his back, is a dull/ achy character but is sharp/ shooting towards the right > than the left lower extremity. Pain is provoked by bending, twisting or lifting. Pain is alleviated with medications, topical pain gels, heat, physical therapy techniques he performs at home currently and rest. Patient is currently on Oxycodone 20mg Q8h prn #90, Neurontin 300mg TID #90 and Motrin 800mg TIDWM #90 Patient denies any side effects of the medication(s), denies excessive drowsiness or sleepiness, denies suicidal ideation and reports that the current pain medication is helping to control the pain and improve activities of daily living. Patient denies any motor or sensory deficits. Patient denies any fever or night sweats, denies any change in the bowel movements or urination. Physical Examination: -Constitutional: Cooperative. Not in acute distress . -HEENT: Neck is supple. No lymphadenopathy. No thyromegaly. Normal thyroid size. Eyes: No ptosis , no icterus, no photophobia. ENT: No auditory deficits. Normal oropharynx. No Thrush. - Respiratory: Chest clear to auscultations bilaterally. No wheezing. No rhonchi. - Cardiovascular: Regular rate and rhythm. S1 / S2 , no S3 , no S4. - Gastrointestinal: Abdomen soft no tenderness. Bowel sounds positive in all four quadrants. No organomegaly. - Genitourinary: Deferred. - Neurologic: Cranial nerve II to XII intact. No focal neurological deficits. - Psychatric: Alert & oriented x 3. Matching mood & appropriate affect. Judgment and insight intact. - Lymphatic: No Lymphadenopathy. - Musculoskeletal: Cervical spine: Muscle bulk/ tone/ strength in the bilateral upper extremities normal. Facet loading test cervical area positive. Lumbar spine: Motor bulk/ tone/ strength lower extremities , thigh and legs : 5/5 Deep tendon reflexes : Normal Knee Jerk. Normal Ankle Jerk Tenderness to palpation over the L4-S1 vertebral bodies Lumbar Facet Loading Test positive Straight Leg Raise: positive at 30 degree right side > left side Gaenslen's test positive Nura test: positive right side / left side Range of motion: Flexion of the lumbar spine <60 degrees Range of motion: Extension of the lumbar spine <20 degrees Severe tenderness over the Sacroiliac joint: right side / left side Assessment and plan: Chronic low back pain secondary to lumbar degenerative disc disease , lumbar spondylosis with facet arthropathy without myelopathy Chronic and current use of high-risk medication (Opioids). The patient was counseled about risk of opioid use, psychological risk associated with opioids and was orally counseled to not overuse , divert or sell medications. Pt is to store medication in a safe location. The patient is counseled against driving while using narcotic medications and also not to use alcohol or any illicit recreational drugs. Patient verbalized understanding that the lack of compliance will result in failure to renew narcotic prescription(s) as well as possible discharge from the clinic Diagnoses, prognosis and treatment options including but not limited to physical therapy, surgical interventions, interventional therapies and medication management including narcotics and adjuvant medication were discussed. All patient questions answered MAPS reviewed and it was appropriate. Prescription refill for Oxycodone 20mg Q8h prn #90 with additional refill, Neurontin 300mg TID #90 1 refill and Motrin 800mg TIDWM #90 1 refill I have spent 31 minutes on patient care today. Dr Hamilton was available by phone for the evaluation of this patient. The time was used to review the medical records including relevant urine studies and Prescription history (MAPs), review of the available imaging, evaluation and examination of the patient, coordination of care with the medical staff and if applicable referring physicians, as well as creation of the medical record Objective - Vital Signs Vital signs: Vital Signs Temp 98.5 F 06/21/21 07:48 Pulse 55 L 06/21/21 07:48 Resp 15 06/21/21 07:48 BP 152/84 06/21/21 07:48 Pulse Ox 96 06/21/21 07:48 PQRS Measure Charge Sheet - Pain Location Lower Back Non-Pharmacological Interventions: Heat, Stretching Pharmacological Interventions: PRN Medication PQRS Narrative: Smoking Status Former smoker Narcotic Agreement Date Signed 07/20/20 Blood Pressure 152/84 Pain Intensity [Lower Back] 5 Scale Used Numeric (1 - 10) Hx Alcohol Use (MH) No Home Medications: Ambulatory Orders Hydrocortisone [Cortef] 20 mg PO BID 09/06/20 Gabapentin [Neurontin] 300 mg PO TID #90 cap 03/01/21 Ibuprofen [Motrin] 800 mg PO Q12H PRN #60 tab 03/01/21 oxyCODONE HCL 20 mg PO Q8HR PRN 30 Days #90 ml 03/01/21
== END ==
LOC: PNWHC3 07:07
PROVIDERS: ATTEND Physician Assistant Medical
DX: M51.36 Other intervertebral disc degeneration, lumbar region (principal); M47.816 Spondylosis without myelopathy or radiculopathy, lumbar region; G89.29 Other chronic pain; Z79.891 Long term (current) use of opiate analgesic; Z87.891 Personal history of nicotine dependence
CPT/HCPCS: 99211

== ENCOUNTER → 2021-06-30 | Outpatient (CLI) | payer MEDICARE ==
[2021-06-30 09:43] LABS: Basophils % (A) 1 %; Eosinophils # (A) 0.2 k/uL (0-0.7); Eosinophils % (A) 3 %; HCT 38.8 % (39.0-53.0); HGB 12.9 gm/dL (13.0-17.5); Lymphocytes # (A) 1.6 k/uL (1.0-4.8); Lymphocytes % (A) 27 %; MCHC 33.3 g/dL (31.0-37.0); MCV 93.1 fL (80.0-100.0); Mean Platelet Volume 6.8; Monocytes # (A) 0.3 k/uL (0-1.0); Monocytes % (A) 5 %; Neutrophils # (A) 3.8 k/uL (1.3-7.7); Neutrophils % (A) 63 %; Platelet Count 281 k/uL (150-450); RBC 4.17 m/uL (4.30-5.90); RDW 13.8 % (11.5-15.5); WBC 6.1 k/uL (3.8-10.6)
[2021-06-30 09:58] LABS: ALT 15 U/L (4-49); AST 23 U/L (17-59); African American GFR (CKD) >90 (>60 ml/min/1.73 sqM); Albumin 3.8 g/dL (3.5-5.0); Albumin/Globulin Ratio 1.3; Alkaline Phosphatase 83 U/L (38-126); Anion Gap 6 mmol/L; Blood Urea Nitrogen 17 mg/dL (9-20); Calcium 9.2 mg/dL (8.4-10.2); Carbon Dioxide 25 mmol/L (22-30); Chloride 108 mmol/L (98-107); Glucose 94 mg/dL (74-99); Non-African American GFR(CKD) 87 (>60 ml/min/1.73 sqM); Potassium 4.8 mmol/L (3.5-5.1); Sodium 139 mmol/L (137-145); Total Bilirubin 0.6 mg/dL (0.2-1.3); Total Protein 6.8 g/dL (6.3-8.2)
--- NOTE | 2021-06-30 12:22 | CT ---
CT neck and chest with and without contrast HISTORY: Supraglottic cancer Helical acquisition obtained pre- and postadministration of intravenous contrast, patient received 10 0 cc Isovue-30, automated exposure control for dose reduction. Correlation to prior CT soft tissue neck 04/03/2021, PET/CT 05/05/2021, PET/CT dated 01/18/2020 CT NECK: Tracheostomy tube is in place, tube is within the tracheal air column. There are multiple kelsey rgical clips present at the level of the thoracic inlet. No evident adenopathy. Atrophy, fatty replac ement change is present within the tongue, there is fat within the supraglottic location likely posto perative. There are likely a few remaining teeth anteriorly within the mandible. Maxilla shows no upt jose alejandro. There is a probable mucous retention cyst or inflammatory change in the right maxillary sinus. C ervical esophagus shows some thickening, mass effect due to the anterior fat in the surgical bed. Bill ivary glands show symmetric appearance. Basilar skull is within normal limits. There is expected vasc ular enhancement. There is some mass effect along the internal jugular veins which appear to enhance bilaterally. Some mild degenerative disc changes noted in the cervical spine. CHEST: There is no endobronchial lesion, pleural or pericardial effusion. Some minimal patchy basilar density may reflect atelectasis, some minimal interstitial changes are present at the lung bases. Pr obable scarring or atelectatic change present along the right middle lobe medially. There is a subple ural nodule on axial image 27 right upper lobe measuring approximately 4 mm which is stable. Upper lo be emphysematous changes are again noted. Cardiac mediastinal silhouette shows a similar appearance, there are coronary artery calcifications, possible stent. Ascending aorta is aneurysmal at 4.1 cm, pr oximal descending aorta measures 3.5 cm, the aorta at the level of the hiatus measures approximately 3.2 cm. There is no mediastinal, axillary, or hilar adenopathy. Upper abdomen is within normal limits . Atheromatous change present in the common carotid artery in the left IMPRESSION: Postop changes. Aortic aneurysm. No evident recurrence. Stable right upper lobe lung nodu le, likely benign.
== END | disposition home or self-care (01) ==
LOC: RADCTMAIN 08:29
PROVIDERS: ATTEND Internal Medicine
DX: I71.9 Aortic aneurysm of unspecified site, without rupture (principal); R91.1 Solitary pulmonary nodule
CPT/HCPCS: 80053; 84443; 85025; 70492; 71270; 36415; Q9967

== ENCOUNTER → 2021-08-16 | Outpatient (CLI) | payer MEDICARE ==
--- NOTE | 2021-08-16 07:58 | P.PN ---
Subjective Progress Note Date: 08/16/21 Principal diagnosis: A 65 yr old male with a history of severe and chronic low back pain secondary to lumbar degenerative disc diseases and lumbar spondylosis with facet arthropathy presents today for medication refills. Patient states he has lower back pain for several years 5 out of 10 in intensity, dull, throbbing, sharp, shooting to the bilateral lower extremities occasionally. Pain is provoked by walking for periods of 15 minutes or more, bending or lifting. Pain is a lleviated with medications, topical, ice, heat, physical therapy in the past which made his lower back pain worse, home stretching regimen, rest. Patient is currently on oxycodone 20 mg #90, Neurontin 300 mg #90. Patient denies any side effects of the medication(s), denies excessive drowsiness or sleepiness, denies suicidal ideation and reports that the current pain medication is helping to control the pain and improve activities of daily living. Patient denies any motor or sensory deficits. Patient denies any fever or night sweats, denies any change in the bowel movements or urination. Physical Examination: -Constitutional: Cooperative. Not in acute distress . -HEENT: Neck is supple. No lymphadenopathy. No thyromegaly. Normal thyroid size. Eyes: No ptosis , no icterus, no photophobia. ENT: No auditory deficits. Normal oropharynx. No Thrush. - Respiratory: Chest clear to auscultations bilaterally. No wheezing. No rhonchi. - Cardiovascular: Regular rate and rhythm. S1 / S2 , no S3 , no S4. - Gastrointestinal: Abdomen soft no tenderness. Bowel sounds positive in all four quadrants. No organomegaly. - Genitourinary: Deferred. - Neurologic: Cranial nerve II to XII intact. No focal neurological deficits. - Psychatric: Alert & oriented x 3. Matching mood & appropriate affect. Judgment and insight intact. - Lymphatic: No Lymphadenopathy. - Musculoskeletal: Cervical spine: Muscle bulk/ tone/ strength in the bilateral upper extremities normal. Facet loading test cervical area positive. Lumbar spine: Motor bulk/ tone/ strength lower extremities , thigh and legs : 5/5 Deep tendon reflexes : Normal Knee Jerk. Normal Ankle Jerk . Vertebral body tenderness to palpation over L4, L5 Lumbar Facet Loading Test positive L4-L5 and L5-S1 bilaterally Straight Leg Raise: positive at 30 degrees right side/ left side Gaenslen's Test positive Sacral spine : Severe tenderness over the Sacroiliac joint: right side / left side Range of motion: Flexion of the lumbar spine <60 degrees Range of motion: Extension of the lumbar spine <20 degrees Gaenslen's Test positive Nura test: positive right side / left side Assessment and plan: Chronic low back pain secondary to lumbar degenerative disc disease , lumbar spondylosis with facet arthropathy without myelopathy Chronic and current use of high-risk medication (Opioids). The patient was counseled about risk of opioid use, psychological risk associated with opioids and was orally counseled to not overuse , divert or sell medications. Pt is to store medication in a safe location. The patient is counseled against driving while using narcotic medications and also not to use alcohol or any illicit recreational drugs. Patient verbalized understanding that the lack of compliance will result in failure to renew narcotic prescription(s) as well as possible discharge from the clinic Diagnoses, prognosis and treatment options including but not limited to physical therapy, surgical interventions, interventional therapies and medication management including narcotics and adjuvant medication were discussed. All patient questions answered MAPS reviewed and it was appropriate. Urine for UDS to be collected at next visit Prescription refill for oxycodone 20 mg #90 with 1 refill, Neurontin 300 mg #90 with 1 refill I have spent 31 minutes on patient care today. Dr Hamilton was available by phone for the evaluation of this patient. The time was used to review the medical records including relevant urine studies and Prescription history (MAPs), review of the available imaging, evaluation and examination of the patient, coordination of care with the medical staff and if applicable referring physicians, as well as creation of the medical record PQRS Measure Charge Sheet PQRS Narrative: Smoking Status Former smoker Narcotic Agreement Date Signed 07/20/20 Hx Alcohol Use (MH) No Home Medications: Ambulatory Orders Hydrocortisone [Cortef] 20 mg PO BID 09/06/20 Ibuprofen [Motrin] 800 mg PO Q12H PRN #60 tab 03/01/21 Gabapentin [Neurontin] 300 mg PO TID #90 cap 08/16/21 oxyCODONE HCL 20 mg PO Q8H PRN 30 Days #90 tab 08/16/21 oxyCODONE HCL 20 mg PO Q8HR PRN 30 Days #90 ml 08/16/21
[2021-08-16 08:39] VITALS: BP 179/99; PULSE 49; RESP 18; TEMP 98.5
== END ==
LOC: PNWHC3 07:13
PROVIDERS: ATTEND Physician Assistant Medical
DX: M51.36 Other intervertebral disc degeneration, lumbar region (principal); M47.816 Spondylosis without myelopathy or radiculopathy, lumbar region; G89.29 Other chronic pain; Z79.891 Long term (current) use of opiate analgesic; Z87.891 Personal history of nicotine dependence
CPT/HCPCS: 99211

== ENCOUNTER → 2021-10-11 | Outpatient (CLI) | payer MEDICARE ==
--- NOTE | 2021-10-11 08:01 | P.PN ---
Subjective Progress Note Date: 10/11/21 Principal diagnosis: A 65 yr old male with a history of severe and chronic low back pain secondary to lumbar degenerative disc diseases and lumbar spondylosis with facet arthropathy presents today for medication refills. Pain level is currently at 5 out of 10 in intensity, sharp, tight sensation in the lower aspects of the lumbar spine, right greater than left without radiation of pain. Pain is provoked by name, twisting, lifting or other forms of activity. Pain is alleviat ed with dictations, topicals, heat, reclining, use of a pulsating shower and rest. Patient is currently on oxycodone IR 20 mg #90, Neurontin 300 mg #90. Patient denies any side effects of the medication(s), denies excessive drowsiness or sleepiness, denies suicidal ideation and reports that the current pain medication is helping to control the pain and improve activities of daily living. Patient denies any motor or sensory deficits. Patient denies any fever or night sweats, denies any change in the bowel movements or urination. Physical Examination: -Constitutional: Cooperative. Not in acute distress . -HEENT: Neck is supple. No lymphadenopathy. No thyromegaly. Normal thyroid size. Eyes: No ptosis , no icterus, no photophobia. ENT: No auditory deficits. Normal oropharynx. No Thrush. - Respiratory: Chest clear to auscultations bilaterally. No wheezing. No rhonchi. - Cardiovascular: Regular rate and rhythm. S1 / S2 , no S3 , no S4. - Gastrointestinal: Abdomen soft no tenderness. Bowel sounds positive in all four quadrants. No organomegaly. - Genitourinary: Deferred. - Neurologic: Cranial nerve II to XII intact. No focal neurological deficits. - Psychatric: Alert & oriented x 3. Matching mood & appropriate affect. Judgment and insight intact. - Lymphatic: No Lymphadenopathy. - Musculoskeletal: Cervical spine: Muscle bulk/ tone/ strength in the bilateral upper extremities normal. Facet loading test cervical area positive. Lumbar spine: Motor bulk/ tone/ strength lower extremities , thigh and legs : 5/5 Deep tendon reflexes : Normal Knee Jerk. Normal Ankle Jerk . Vertebral body tenderness to palpation over L3, L4, L5 Lumbar Facet Loading Test positive Straight Leg Raise: positive at 30 degrees right side/ left side Gaenslen's Test positive Sacral spine : Severe tenderness over the Sacroiliac joint: right side / left side Range of motion: Flexion of the lumbar spine <60 degrees Range of motion: Extension of the lumbar spine <20 degrees Gaenslen's Test positive Nura test: positive right side / left side Assessment and plan: Chronic low back pain secondary to lumbar degenerative disc disease , lumbar spondylosis with facet arthropathy without myelopathy Chronic and current use of high-risk medication (Opioids). The patient was counseled about risk of opioid use, psychological risk associated with opioids and was orally counseled to not overuse , divert or sell medications. Pt is to store medication in a safe location. The patient is counseled against driving while using narcotic medications and also not to use alcohol or any illicit recreational drugs. Patient verbalized understanding that the lack of compliance will result in failure to renew narcotic prescription(s) as well as possible discharge from the clinic Diagnoses, prognosis and treatment options including but not limited to physical therapy, surgical interventions, interventional therapies and medication management including narcotics and adjuvant medication were discussed. All patient questions answered MAPS reviewed and it was appropriate. Urine for UDS collected today 10/11/21 Prescription refill for oxycodone IR 20 mg #90 with 1 refill, Neurontin 300 mg #90 with 1 refill. I have spent 31 minutes on patient care today. Dr Hamilton was available by phone for the evaluation of this patient. The time was used to review the medical records including relevant urine studies and Prescription history (MAPs), review of the available imaging, evaluation and examination of the patient, coordination of care with the medical staff and if applicable referring physicians, as well as creation of the medical record PQRS Measure Charge Sheet PQRS Narrative: Smoking Status Former smoker Narcotic Agreement Date Signed 07/20/20 Hx Alcohol Use (MH) No Home Medications: Ambulatory Orders Hydrocortisone [Cortef] 20 mg PO BID 09/06/20 Ibuprofen [Motrin] 800 mg PO Q12H PRN #60 tab 03/01/21 Gabapentin [Neurontin] 300 mg PO TID #90 cap 08/16/21 oxyCODONE HCL 20 mg PO Q8H PRN 30 Days #90 tab 08/16/21 oxyCODONE HCL 20 mg PO Q8HR PRN 30 Days #90 ml 08/16/21
[2021-10-11 08:11] VITALS: BP 139/80; PULSE 56; RESP 18; TEMP 98.5
== END ==
LOC: PNWHC3 07:14
PROVIDERS: ATTEND Specialist
DX: M51.36 Other intervertebral disc degeneration, lumbar region (principal); M47.816 Spondylosis without myelopathy or radiculopathy, lumbar region; G89.29 Other chronic pain; Z79.891 Long term (current) use of opiate analgesic; Z87.891 Personal history of nicotine dependence
CPT/HCPCS: 80307; G0482; G0463; 99212

== ENCOUNTER → 2021-12-06 | Outpatient (CLI) | payer MEDICARE ==
[2021-12-06 07:57] VITALS: BP 149/82; PULSE 58; RESP 18
--- NOTE | 2021-12-06 08:03 | P.PAINPG ---
Objective - Vital Signs Vital signs: Vital Signs Temp Pulse 58 L 12/06/21 07:54 Resp 18 12/06/21 07:54 BP 149/82 12/06/21 07:54 Pulse Ox 96 12/06/21 07:54 FiO2 Intake & Output 12/05/21 12/06/21 12/06/21 18:59 06:59 18:59 Weight 108.862 kg PQRS Measure Charge Sheet Mode of Arrival: Ambulatory Comment: A 66 yr old male with a history of severe and chronic low back pain secondary to lumbar degenerative disc diseases and lumbar spondylosis with facet arthropathy presents today for medication refills. Pain level is currently at 4 out of 10 in intensity, localized to the mid to lower aspects of his lumbar spine with radiation of sharp pain to the lower extremities. Pain is provoked with weightbearing activity. Pain is alleviated with medications, OTC patches, injections, heat, physical therapy which provided no relief, home exercise regimen as tolerated, use of a lumbar support brace as needed, repositioning and rest. Patient is currently on oxycodone 20 mg #90, Neurontin 300 mg #90, ibuprofen 800 mg #60 Patient denies any side effects of the medication(s), denies excessive drowsiness or sleepiness, denies suicidal ideation and reports that the current pain medication is helping to control the pain and improve activities of daily living. Patient denies any motor or sensory deficits. Patient denies any fever or night sweats, denies any change in the bowel movements or urination. Physical Examination: -Constitutional: Cooperative. Not in acute distress . - Neurologic: Cranial nerve II to XII intact. No focal neurological deficits. - Psychatric: Alert & oriented x 3. Matching mood & appropriate affect. Judgment and insight intact. - Musculoskeletal: Cervical spine: Muscle bulk/ tone/ strength in the bilateral upper extremities normal Vertebral body tenderness to palpation over Spurling test positive Distraction test positive Facet loading test positive Thoracic spine Muscle bulk / tone/ strength in the bilateral paraspinal muscles normal Vertebral body tender to palpation over Facet loading test positive Lumbar spine: Motor bulk/ tone/ strength lower extremities , thigh and legs : 5/5 Deep tendon reflexes : Normal Knee Jerk. Normal Ankle Jerk . Vertebral body tenderness to palpation over L3, L4, L5 with BL paraspinal muscle TTP Lumbar Facet Loading Test positive Straight Leg Raise: positive at 30 degrees right side/ left side Gaenslen's Test positive Sacral spine : Severe tenderness over the Sacroiliac joint: right side / left side Range of motion: Flexion of the lumbar spine <60 degrees Range of motion: Extension of the lumbar spine <20 degrees Gaenslen's Test positive Mars's Test positive Nura test: positive right side / left side Thigh Thrust Test Sacral Thrust Test Assessment and plan: Chronic low back pain secondary to lumbar degenerative disc disease , lumbar spondylosis with facet arthropathy without myelopathy Chronic and current use of high-risk medication (Opioids). The patient was counseled about risk of opioid use, psychological risk associated with opioids and was orally counseled to not overuse , divert or sell medications. Pt is to store medication in a safe location. The patient is counseled against driving while using narcotic medications and also not to use alcohol or any illicit recreational drugs. Patient verbalized understanding that the lack of compliance will result in failure to renew narcotic prescription(s) as well as possible discharge from the clinic Diagnoses, prognosis and treatment options including but not limited to p hysical therapy, surgical interventions, interventional therapies and medication management including narcotics and adjuvant medication were discussed. All patient questions answered MAPS reviewed and it was appropriate. UDS from 10/11/21 reviewed and consistent Prescription refill for oxycodone 20 mg #90, Neurontin 300 mg #90, ibuprofen 800 mg #60 w 1 refill I have spent less than 30 minutes on patient care today. Dr Hamilton was available by phone for the evaluation of this patient. The time was used to review the medical records including relevant urine studies and Prescription history (MAPs), review of the available imaging, evaluation and examination of the patient, coordination of care with the medical staff and if applicable referring physicians, as well as creation of the medical record - Pain Location Lower Back Non-Pharmacological Interventions: Heat, Home Exercise, Inactivity, Position/Reposition, Stretching Pharmacological Interventions: Block, Epidural, PRN Medication, Scheduled Medication, Topical Medication PQRS Narrative: Smoking Status Former smoker Narcotic Agreement Date Signed 07/20/20 Blood Pressure 149/82 Pain Intensity [Lower Back] 4 Scale Used Numeric (1 - 10) Hx Alcohol Use (MH) No Home Medications: Ambulatory Orders Hydrocortisone [Cortef] 20 mg PO BID 09/06/20 Gabapentin [Neurontin] 300 mg PO TID 30 Days #90 cap 12/06/21 Ibuprofen [Motrin] 800 mg PO Q12H PRN 30 Days #60 tab 12/06/21 oxyCODONE HCL 20 mg PO Q8H PRN 30 Days #90 tab 12/06/21 oxyCODONE HCL 20 mg PO Q8HR PRN 30 Days #90 tab 12/06/21 Controlled Substance Measures - Controlled Substance Measures Is patient prescribed a controlled substance at discharge?: Yes When asked, does pt state using other controlled substances?: Yes If prescribed controlled substance>3 days was MAPS reviewed?: Yes If Rx opioid, was Start Talking consent form obtained?: Yes If opioid is for acute pain is fill amount 7 days or less?: Yes Was information provided regarding opioid addiction?: Yes
== END ==
LOC: PNWHC3 07:14
PROVIDERS: ATTEND Specialist
DX: M51.36 Other intervertebral disc degeneration, lumbar region (principal); M47.816 Spondylosis without myelopathy or radiculopathy, lumbar region; G89.29 Other chronic pain; Z79.891 Long term (current) use of opiate analgesic; Z87.891 Personal history of nicotine dependence
CPT/HCPCS: 99211